=== PATIENT | female | born 1955 | race Caucasian/White ===

== ENCOUNTER 2017-12-12 13:03 | Inpatient (IN) | payer SELFPAY ==
[2017-12-12] VITALS (20 sets, daily range): BP systolic 128–263; BP diastolic 56–129; PULSE 78–95; RESP 18–26; TEMP 97.8–99.5; O2SAT 90–98
[~2017-12-12] VITALS: Ht 175.3 cm; Wt 75.4 kg
[~2017-12-12 13:03] MED LIST: CARD120T4 PO; FLON0.053; LORT5TAB PO; PRIN20TA2 PO; PROT40TA PO; RANI150 PO; VENTAER INH
[2017-12-12] MEDS ORDERED: ASPIRIN 325 MG TAB PO ONE (13:15)
[2017-12-12] MEDS ORDERED: SODIUM CHLORIDE 0.9% FLUSH 10 ML FLUSH IVF PRN (13:15)
[2017-12-12] MEDS ORDERED: methylPREDNISolone SOD SUCC 125 MG/2 ML VIAL IV PUSH ONE (13:15)
[2017-12-12] MEDS ORDERED: METO100T PO (13:29)
[2017-12-12] MEDS ORDERED: LISI-515 PO (13:29)
[2017-12-12] MEDS ORDERED: NITROGLYCERIN 0.4 MG SL 25 TABS/BTL SL ONE ×2 (13:30→18:00)
[2017-12-12] MEDS: RESP: ALBUTEROL 2.5 MG/IPRATROPIUM 0.5 MG NEB (SCH) INH (13:30)
[2017-12-12 13:34] LABS: AUTOMATED NEUTROPHIL # 4.9 TH/MM3 (1.8-7.7); BASOPHIL % 0.7 % (0.0-2.0); EOSINOPHIL % 0.3 % (0.0-4.0); HEMATOCRIT 45.6 % (35.0-46.0); LYMPH % 16.2 % (9.0-44.0); LYMPHOCYTE # 1.1 TH/MM3 (1.0-4.8); MEAN CELL VOLUME 98.2 FL (80.0-100.0); MEAN CORPUSCULAR HEMOGLOBIN 32.4 PG (27.0-34.0); MEAN PLATELET VOLUME 9.4 FL (7.0-11.0); MONO % 12.7 % (0.0-8.0); MONOCYTE # 0.9 TH/MM3 (0-0.9); NEUT % 70.1 % (16.0-70.0); PLATELET COUNT 224 TH/MM3 (150-450); RED BLOOD COUNT 4.64 MIL/MM3 (4.00-5.30); RED CELL DISTRIBUTION WIDTH 13.4 % (11.6-17.2); WHITE BLOOD COUNT 6.9 TH/MM3 (4.0-11.0)
[2017-12-12 13:41] LABS: CHLORIDE 101 MEQ/L (98-107); SODIUM (NA) 138 MEQ/L (136-145)
[2017-12-12 13:44] LABS: BICARBONATE 33.7 MEQ/L (21.0-32.0); BLOOD UREA NITROGEN 15 MG/DL (7-18); CALCIUM 8.8 MG/DL (8.5-10.1); GLUCOSE,RANDOM 107 MG/DL (74-106); MAGNESIUM 1.7 MG/DL (1.5-2.5)
[2017-12-12 13:47] LABS: INTERNATIONAL NORMALIZED RATIO 0.9 RATIO; PROTHROMBIN TIME - PATIENT 9.5 SEC (9.8-11.6)
[2017-12-12 13:48] LABS: GLOMERULAR FILTRATION RATE 50 ML/MIN (>89)
[2017-12-12 13:52] LABS: TROPONIN I LESS THAN 0.02 NG/ML (0.02-0.05)
--- NOTE | 2017-12-12 14:05 | RADRPT ---
EXAM DATE/TIME: 12/12/2017 13:46 [facility] COMPARISON: No previous studies available for comparison. INDICATIONS : Short of breath, chest pain on left side. MEDICAL HISTORY : Hypertension. Bronchitis. SURGICAL HISTORY : Hysterectomy. Carpal tunnel syndrome. Colostomy/reversal. Bowel resection. ENCOUNTER: Initial ACUITY: 1 day PAIN SCORE: 8/10 LOCATION: chest FINDINGS: PA and lateral views of the chest demonstrate the lungs to be symmetrically aerated without evidence of mass, infiltrate or effusion. There is diffuse widespread interstitial lung disease The cardiomedi astinal contours are unremarkable. Osseous structures are intact. CONCLUSION: Normal examination. Diffuse widespread interstitial lung disease Jorge Mccarthy MD on December 12, 2017 at 14:04 Board Certified Radiologist. This report was verified electronically.
[2017-12-12] MEDS ORDERED: hydrALAZINE HCL 20 MG/ML VIAL IV PUSH ONE ×2 (14:30→17:00)
[2017-12-12] MEDS ORDERED: MORPHINE SULFATE 4 MG/ML INJ IV PUSH ONE (15:00)
[2017-12-12] MEDS ORDERED: KETOROLAC TROMETHAMINE 30 MG/ML (IVP) VIAL IV PUSH ONE (15:00)
[2017-12-12] MEDS ORDERED: ONDANSETRON HCL 4 MG/2 ML VIAL IV PUSH ONE (15:00)
--- NOTE | 2017-12-12 15:03 | PD ---
HPI Chief Complaint: Respiratory Symptoms Time Seen by Provider: 13:05 Travel History International Travel<30 days: No Contact w/Intl Traveler<30days: No Traveled to known affect area: No History of Present Illness HPI This is a 62-year-old female who presents for shortness of breath. She states that overnight, she developed shortness of breath and nonproductive cough. No fever, chills. She complains of pain on the left lateral and posterior chest wall. No anterior chest pain. This pain is only present with coughing, deep breath and moving. It does not radiate to arm, neck, jaw. No associated diaphoresis. She denies associated nausea, vomiting, diarrhea. She does continue to smoke heavily. Symptoms are moderate in severity. Onset gradual. Aggravated by movement and coughing. PFSH Past Medical History Asthma: No Blood Disorders: No Anxiety: Yes Depression: Yes Heart Rhythm Problems: No Cancer: No Cardiovascular Problems: Yes High Cholesterol: No Chemotherapy: No Chest Pain: No Congestive Heart Failure: No COPD: Yes Diminished Hearing: No Endocrine: No Gastrointestinal Disorders: Yes GERD: No Glaucoma: No Genitourinary: No Hepatitis: No Hiatal Hernia: No Hypertension: Yes Immune Disorder: No Musculoskeletal: No Neurologic: No Psychiatric: No Reproductive: No Respiratory: Yes (BRONCHITIS) Myocardial Infarction: No Radiation Therapy: No Sleep Apnea: No Ulcer: No Tetanus Vaccination: > 5 Years Influenza Vaccination: No ?: Not Past Surgical History Abdominal Surgery: Yes (COLOSTOMY REVIRSAL/ BOWEL RESCETION/) AICD: No Appendectomy: No Arteriovenous Shunt: No Cholecystectomy: No Gynecologic Surgery: Yes (HYSTERECTOMY) Hysterectomy: Yes Insulin Pump: No Joint Replacement: No Pacemaker: No Other Surgery: Yes Social History Alcohol Use: Yes ("A LOT") Tobacco Use: Yes (1/2 PPD) Substance Use: No Allergies-Medications (Allergen,Severity, Reaction): Coded Allergies: Sulfa (Sulfonamide Antibiotics) (Unverified Allergy, Mild, HIVES and sob, 12/12/17) Reported Meds & Prescriptions Reported Meds & Active Scripts Active Reported Metoprolol Tartrate 100 Mg Tab 100 Mg PO BID Lisinopril 20 Mg Tab 20 Mg PO DAILY Review of Systems Except as stated in HPI: all other systems reviewed are Neg Physical Exam Narrative GENERAL: Alert, well nourished, well appearing patient resting on the bed in no acute distress. Vital Signs reviewed SKIN: Focused skin assessment warm/dry. HEAD: Atraumatic. Normocephalic. EYES: Pupils equal and round. No scleral icterus. No injection or drainage. ENT: No nasal bleeding or discharge. Mucous membranes pink and moist. NECK: Trachea midline. No JVD. Spontaneous, painless full range of motion with no meningismus CARDIOVASCULAR: Regular rate and rhythm. No murmur appreciated. Extremities warm and well perfused with bounding peripheral pulses RESPIRATORY: Mildly increased work of breathing. Diminished breath sounds throughout with some faint end expiratory wheezes. GASTROINTESTINAL: Abdomen soft, non-tender, nondistended. Normal bowel sounds. No rigid, rebound, guarding MUSCULOSKELETAL: No obvious deformities. No clubbing. No cyanosis. No edema. Compartments are soft NEUROLOGICAL: Awake and alert. No obvious cranial nerve deficits. Motor grossly within normal limits. Normal speech. Sensation intact. Normal gait PSYCHIATRIC: Appropriate mood and affect; insight and judgment normal. Data Data Last Documented VS Vital Signs Date Time Temp Pulse Resp B/P (MAP) Pulse Ox O2 Delivery O2 Flow Rate FiO2 12/12/17 16:53 82 18 193/82 (119) 94 Nasal Cannula 2.00 12/12/17 16:33 99.3 Orders Orders Electrocardiogram (12/12/17 13:11) Basic Metabolic Panel (Bmp) (12/12/17 13:11) B-Type Natriuretic Peptide (12/12/17 13:11) Ckmb (Isoenzyme) Profile (12/12/17 13:11) Complete Blood Count With Diff (12/12/17 13:11) Magnesium (Mg) (12/12/17 13:11) Prothrombin Time / Inr (Pt) (12/12/17 13:11) Act Partial Throm Time (Ptt) (12/12/17 13:11) Troponin I (12/12/17 13:11) Ecg Monitoring (12/12/17 13:11) Bilateral Bp Monitoring (12/12/17 13:11) Iv Access Insert/Monitor (12/12/17 13:11) Oximetry (12/12/17 13:11) Oxygen Administration (12/12/17 13:11) Aspirin (Aspirin) (12/12/17 13:15) Sodium Chloride 0.9% Flush (Ns Flush) (12/12/17 13:15) Chest, Pa & Lat (12/12/17 13:11) Arterial Blood Gas (Abg) (12/12/17 13:11) Influenzae A/B Antigen (12/12/17 13:11) Blood Culture (12/12/17 13:11) Methylprednisolone So Succ Inj (Solumedr (12/12/17 13:15) Albuterol-Ipratropium Neb (Duoneb Neb) (12/12/17 13:15) Lactic Acid Sepsis Protocol (12/12/17 13:11) Nitroglycerin Sl (Nitrostat Sl) (12/12/17 13:30) Ct Pulmonary Angiogram (12/12/17 14:21) Hydralazine Inj (Apresoline Inj) (12/12/17 14:30) Morphine Inj (Morphine Inj) (12/12/17 15:00) Ondansetron Inj (Zofran Inj) (12/12/17 15:00) Ketorolac Inj (Toradol Inj) (12/12/17 15:00) Levofloxacin 750 Mg Premix Inj (Levaquin (12/12/17 15:15) Iohexol 350 Inj (Omnipaque 350 Inj) (12/12/17 16:14) Sodium Chlor 0.9% 1000 Ml Inj (Ns 1000 M (12/12/17 16:48) Hydralazine Inj (Apresoline Inj) (12/12/17 17:00) Vital Signs (Adult) AVINASH.Q4H (12/12/17 16:53) Activity Oob With Assistance (12/12/17 16:53) Resp Oxygen Loenardo C Titrat 1-4 L (12/12/17 ) Inpatient Certification (12/12/17 ) Admit Order (Ed Use Only) (12/12/17 16:53) Labs Laboratory Tests Test 12/12/17 13:15 12/12/17 13:27 White Blood Count 6.9 TH/MM3 Red Blood Count 4.64 MIL/MM3 Hemoglobin 15.0 GM/DL Hematocrit 45.6 % Mean Corpuscular Volume 98.2 FL Mean Corpuscular Hemoglobin 32.4 PG Mean Corpuscular Hemoglobin Concent 33.0 % Red Cell Distribution Width 13.4 % Platelet Count 224 TH/MM3 Mean Platelet Volume 9.4 FL Neutrophils (%) (Auto) 70.1 % Lymphocytes (%) (Auto) 16.2 % Monocytes (%) (Auto) 12.7 % Eosinophils (%) (Auto) 0.3 % Basophils (%) (Auto) 0.7 % Neutrophils # (Auto) 4.9 TH/MM3 Lymphocytes # (Auto) 1.1 TH/MM3 Monocytes # (Auto) 0.9 TH/MM3 Eosinophils # (Auto) 0.0 TH/MM3 Basophils # (Auto) 0.0 TH/MM3 CBC Comment DIFF FINAL Differential Comment Prothrombin Time 9.5 SEC Prothromb Time International Ratio 0.9 RATIO Activated Partial Thromboplast Time 25.2 SEC Blood Urea Nitrogen 15 MG/DL Creatinine 1.10 MG/DL Random Glucose 107 MG/DL Calcium Level 8.8 MG/DL Magnesium Level 1.7 MG/DL Sodium Level 138 MEQ/L Potassium Level 4.3 MEQ/L Chloride Level 101 MEQ/L Carbon Dioxide Level 33.7 MEQ/L Anion Gap 3 MEQ/L Estimat Glomerular Filtration Rate 50 ML/MIN Lactic Acid Level 0.8 mmol/L Total Creatine Kinase 39 U/L Troponin I LESS THAN 0.02 NG/ML B-Type Natriuretic Peptide 533 PG/ML Blood Gas Puncture Site RT RADIAL Blood Gas Patient Temperature 98.6 Blood Gas HCO3 28 mmol/L Blood Gas Base Excess 3.5 mmol/L Blood Gas Oxygen Saturation 84 % Arterial Blood pH 7.42 Arterial Blood Partial Pressure CO2 43 mmHG Arterial Blood Partial Pressure O2 57 mmHG Arterial Blood Oxygen Content 17.6 Vol % Arterial Blood Carboxyhemoglobin 4.2 % Arterial Blood Methemoglobin 1.4 % Blood Gas Hemoglobin 14.9 G/DL Oxygen Delivery Device ROOM AIR Blood Gas Inspired Oxygen 21 % [facility] Medical Decision Making Medical Screen Exam Complete: Yes Emergency Medical Condition: Yes Medical Record Reviewed: Yes Interpretation(s) EKG shows sinus rhythm with a rate of 87. No acute ST elevation Date/Time Source Procedure Growth Status 12/12/17 13:20 Blood Peripheral Aerobic Blood Culture Pending Received 12/12/17 13:20 Blood Peripheral Anaerobic Blood Culture Pending Received 12/12/17 13:15 Blood Peripheral Aerobic Blood Culture Pending Received 12/12/17 13:15 Blood Peripheral Anaerobic Blood Culture Pending Received 12/12/17 13:15 Nasal Washing Influenza Types A,B Antigen (DOLORES) - Final NEGATIVE FOR FLU A AND B ANTIGEN.... Complete Laboratory Tests Test 3/1/18 13:15 12/12/17 13:27 White Blood Count 6.9 TH/MM3 Red Blood Count 4.64 MIL/MM3 Hemoglobin 15.0 GM/DL Hematocrit 45.6 % Mean Corpuscular Volume 98.2 FL Mean Corpuscular Hemoglobin 32.4 PG Mean Corpuscular Hemoglobin Concent 33.0 % Red Cell Distribution Width 13.4 % Platelet Count 224 TH/MM3 Mean Platelet Volume 9.4 FL Neutrophils (%) (Auto) 70.1 % Lymphocytes (%) (Auto) 16.2 % Monocytes (%) (Auto) 12.7 % Eosinophils (%) (Auto) 0.3 % Basophils (%) (Auto) 0.7 % Neutrophils # (Auto) 4.9 TH/MM3 Lymphocytes # (Auto) 1.1 TH/MM3 Monocytes # (Auto) 0.9 TH/MM3 Eosinophils # (Auto) 0.0 TH/MM3 Basophils # (Auto) 0.0 TH/MM3 CBC Comment DIFF FINAL Differential Comment Prothrombin Time 9.5 SEC Prothromb Time International Ratio 0.9 RATIO Activated Partial Thromboplast Time 25.2 SEC Blood Urea Nitrogen 15 MG/DL Creatinine 1.10 MG/DL Random Glucose 107 MG/DL Calcium Level 8.8 MG/DL Magnesium Level 1.7 MG/DL Sodium Level 138 MEQ/L Potassium Level 4.3 MEQ/L Chloride Level 101 MEQ/L Carbon Dioxide Level 33.7 MEQ/L Anion Gap 3 MEQ/L Estimat Glomerular Filtration Rate 50 ML/MIN Lactic Acid Level 0.8 mmol/L Total Creatine Kinase 39 U/L Troponin I LESS THAN 0.02 NG/ML B-Type Natriuretic Peptide 533 PG/ML Blood Gas Puncture Site RT RADIAL Blood Gas Patient Temperature 98.6 Blood Gas HCO3 28 mmol/L Blood Gas Base Excess 3.5 mmol/L Blood Gas Oxygen Saturation 84 % Arterial Blood pH 7.42 Arterial Blood Partial Pressure CO2 43 mmHG Arterial Blood Partial Pressure O2 57 mmHG Arterial Blood Oxygen Content 17.6 Vol % Arterial Blood Carboxyhemoglobin 4.2 % Arterial Blood Methemoglobin 1.4 % Blood Gas Hemoglobin 14.9 G/DL Oxygen Delivery Device ROOM AIR Blood Gas Inspired Oxygen 21 % Last [address] Angiography 12/12/17 [id number] Signed Impressions: Service Date/Time: December 16:03 - CONCLUSION: Bilobed elongated infiltrate within the lingula most likely from an area of rounded pneumonia. Due to the soft tissue and spiculated margin followup noncontrast chest CT recommended in one month. Small amounts of air space disease in both lung bases. No evidence of pulmonary embolism. Jorge Mccarthy MD Chest X-Ray 12/12/17 1311 Signed Impressions: Service Date/Time: December 13:46 - CONCLUSION: Normal examination. Diffuse widespread interstitial lung disease Jorge Mccarthy MD Differential Diagnosis COPD exacerbation, bronchitis, pneumonia, pulmonary embolism, lung cancer Narrative Course Patient was placed on a environmental monitoring technician. IV access was established. Labs, imaging were performed. Patient was placed on supplemental oxygen. She was given IV fluids, IV antibiotics, duo nebs and Solu-Medrol. Patient was given Toradol and morphine for pain in the left lateral ribs. Patient was reassessed multiple times in the emergency department. She did require multiple doses of IV hydralazine due to accelerated hypertension. I reviewed the results of the workup with her. Plan for admission for further evaluation and care. 5:20 PM: I was asked to assess the patient due to wheezing and chest tightness with breathing. Repeat EKG was performed. Patient was given DuoNeb. I then reassessed the patient and ordered BiPAP. Admitting hospitalist is aware 5:40 PM: Admitting hospitalist is at bedside, he examined patient and does not recommend BiPAP. Physician Communication Physician Communication 4:50 PM: Spoke with admitting hospitalist who assumes care of patient Diagnosis Primary Impression: Pneumonia Qualified Codes: J18.1 - Lobar pneumonia, unspecified organism Additional Impressions: Hypoxia Accelerated hypertension Hemalatha Elmore MD Dec 12, 2017 15:02
[2017-12-12] MEDS ORDERED: LEVOFLOXACIN 750 MG PREMIX INJ 150 ML IV ONE (15:15)
[2017-12-12] MEDS ORDERED: IOHEXOL 350 MG/ML 10 ML VIAL (for RAD DIAG) IVCONTRAST ONE (16:14)
--- NOTE | 2017-12-12 16:25 | RADRPT ---
EXAM DATE/TIME: 12/12/2017 16:03 [facility] COMPARISON: No previous studies available for comparison. INDICATIONS : Short of breath. Left chest pain. IV CONTRAST: 75 cc Omnipaque 350 (iohexol) IV RADIATION DOSE: 11.65 CTDIvol (mGy) MEDICAL HISTORY : Hypertension. SURGICAL HISTORY : Colostomy. Colon resection.Hysterectomy. ENCOUNTER: Initial ACUITY: 1 day PAIN SCALE: 10/10 LOCATION: Left chest TECHNIQUE: Volumetric scanning of the chest was performed using a pulmonary embolism protocol MIP images were re constructed. Using automated exposure control and adjustment of the mA and/or kV according to patien t size, radiation dose was kept as low as reasonably achievable to obtain optimal diagnostic quality images. DICOM format image data is available electronically for review and comparison. Follow-up recommendations for detected pulmonary nodules are based at a minimum on nodule size and pa tient risk factors according to Fleischner Society Guidelines. FINDINGS: PULMONARY ARTERIES: No filling defects are seen in the pulmonary arteries through the segmental level. LUNGS: There is elongated infiltrate measuring 2.1 x 3.7 cm in the left upper lobe lingula. It does have a s omewhat spiculated margin and clearly needs followup. Suggest appropriate antibiotic treatment and fo llowup noncontrast chest CT in one month. Smaller area of groundglass infiltrate in the medial right lower lobe and the medial left lung base PLEURAE: There is no pleural thickening or pleural effusion. MEDIASTINUM: There is good visualization of the great vessels of the middle mediastinum. No evidence of mediastin al or hilar adenopathy/mass. MUSCULOSKELETAL: Within normal limits for patient age. MISCELLANEOUS: The visualized upper abdominal organs demonstrate no acute abnormality. 2 cm left adrenal nodule like ly adrenal adenoma CONCLUSION: Bilobed elongated infiltrate within the lingula most likely from an area of rounded pneumonia. Due to the soft tissue and spiculated margin followup noncontrast chest CT recommended in one month. Small amounts of air space disease in both lung bases. No evidence of pulmonary embolism. Jorge Mccarthy MD on December 12, 2017 at 16:21 Board Certified Radiologist. This report was verified electronically.
[2017-12-12] MEDS ORDERED: SODIUM CHLOR 0.9% 1000 ML INJ 1,000 ML IV SCH (16:48)
[2017-12-12] MEDS ORDERED: RESP: ALBUTEROL 2.5 MG/IPRATROPIUM 0.5 MG NEB (SCH) INH ONE (17:30)
--- NOTE | 2017-12-12 18:00 | HHI.HP ---
HPI Service [facility] Primary Care Physician Ayo Gonzales MD Admission Diagnosis Pneumonia, hypoxia, accelerated hypertension Diagnoses: Chief Complaint: rib pain and chest pressure Travel History International Travel<30 Days: No Contact w/Intl Traveler <30 Da: No Traveled to Known Affected Are: No History of Present Illness 62-year-old white female being admitted for acute hypoxic respiratory failure and suspected unstable angina. Patient was in her usual state of health until she woke up this morning in pain over her left rib cage in her left back. She reported that the pain would worsen with deep inspiration and was at max intensity and thus she decided come to the emergency department. She denies any jennifer coughing, cyanosis, nausea, vomiting. In the ER the patient was noted to be hypoxic around 89% was found to be very hypertensive with blood pressures greater than 200/100. Initial EKG was obtained which independently reviewed it shows no ST segment changes concerning for ischemia or infarction. Patient did receive 1 round of nitroglycerin which brought her pressures down substantially. CT chest was performed which showed no emboli but showed a lingular infiltrate in the left lung. Patient was started on antibiotics. However later in the course of her management the patient developed sudden onset squeezing sensation in her chest which got her very frightened. Repeat EKG was performed which shows mild new onset ST segment depression in leads 4 through 6 based upon my personal interpretation. Review of Systems Except as stated in HPI: all other systems reviewed are Neg Past Family Social History Past Medical History Hypertension Allergies: Coded Allergies: Sulfa (Sulfonamide Antibiotics) (Unverified Allergy, Mild, HIVES and sob, 12/12/17) Family History [place] at 65 in father Social History lifelong history of smoking, reports drinking vodka heavily up to 3x a week Physical Exam Vital Signs Vital Signs Date Time Temp Pulse Resp B/P (MAP) Pulse Ox O2 Delivery O2 Flow Rate FiO2 12/12/17 17:22 88 22 144/57 (86) 95 Nasal Cannula 2.00 12/12/17 17:12 88 20 128/56 (80) 95 Nasal Cannula 2.00 12/12/17 17:04 86 18 158/60 (92) 93 Nasal Cannula 2.00 12/12/17 16:53 82 18 193/82 (119) 94 Nasal Cannula 2.00 12/12/17 16:33 Nasal Cannula 2.00 12/12/17 16:33 99.3 83 18 206/89 (128) 98 Nasal Cannula 2.00 12/12/17 15:14 80 215/81 (125) 12/12/17 14:50 80 18 192/67 (108) 94 Nasal Cannula 2.00 12/12/17 14:21 78 18 208/88 (128) 94 Nasal Cannula 2.00 12/12/17 13:44 82 18 185/82 (116) 92 Nasal Cannula 2.00 12/12/17 13:42 (173) 12/12/17 13:34 237/100 (145) 263/129 (173) 12/12/17 13:33 96 Nasal Cannula 2.00 12/12/17 13:27 90 Room Air 12/12/17 13:15 99.5 84 18 263/129 (173) 90 Room Air 12/12/17 13:15 89 Room Air 12/12/17 13:15 90 Room Air Physical Exam VS: afebrile GENERAL: White female who appears older than his stated age, sitting up at the edge of the bed, appears to be in moderate to severe distress secondary to pain SKIN: Warm and dry. EYES: No scleral icterus. No injection or drainage. ENT: No nasal bleeding or discharge. Mucous membranes pink and moist. CARDIOVASCULAR: Regular rate and rhythm. no murmurs RESPIRATORY: Diminished breath sounds in the bases due to shallow breathing secondary to pain, no wheezing heard GASTROINTESTINAL: Abdomen soft, non-tender, nondistended. Extremities: No clubbing, cyanosis, or edema. No obvious deformities. MUSCULOSKELETAL: adequate muscle bulk and tone for age and habitus; has diffuse TTP over left sided rib cage and left flank NEUROLOGICAL: Awake and alert. No obvious cranial nerve deficits. No facial droop nor slurred speech noted. PSYCHIATRIC: Appropriate mood and affect; insight and judgment normal. Laboratory Laboratory Tests Test 12/12/17 13:15 12/12/17 13:27 12/12/17 17:40 White Blood Count 6.9 Red Blood Count 4.64 Hemoglobin 15.0 Hematocrit 45.6 Mean Corpuscular Volume 98.2 Mean Corpuscular Hemoglobin 32.4 Mean Corpuscular Hemoglobin Concent 33.0 Red Cell Distribution Width 13.4 Platelet Count 224 Mean Platelet Volume 9.4 Neutrophils (%) (Auto) 70.1 Lymphocytes (%) (Auto) 16.2 Monocytes (%) (Auto) 12.7 Eosinophils (%) (Auto) 0.3 Basophils (%) (Auto) 0.7 Neutrophils # (Auto) 4.9 Lymphocytes # (Auto) 1.1 Monocytes # (Auto) 0.9 Eosinophils # (Auto) 0.0 Basophils # (Auto) 0.0 CBC Comment DIFF FINAL Differential Comment Prothrombin Time 9.5 Prothromb Time International Ratio 0.9 Activated Partial Thromboplast Time 25.2 Blood Urea Nitrogen 15 Creatinine 1.10 Random Glucose 107 Calcium Level 8.8 Magnesium Level 1.7 Sodium Level 138 Potassium Level 4.3 Chloride Level 101 Carbon Dioxide Level 33.7 Anion Gap 3 Estimat Glomerular Filtration Rate 50 Lactic Acid Level 0.8 Total Creatine Kinase 39 Troponin I LESS THAN 0.02 B-Type Natriuretic Peptide 533 Blood Gas Puncture Site RT RADIAL Blood Gas Patient Temperature 98.6 Blood Gas HCO3 28 Blood Gas Base Excess 3.5 Blood Gas Oxygen Saturation 84 Arterial Blood pH 7.42 Arterial Blood Partial Pressure CO2 43 Arterial Blood Partial Pressure O2 57 Arterial Blood Oxygen Content 17.6 Arterial Blood Carboxyhemoglobin 4.2 Arterial Blood Methemoglobin 1.4 Blood Gas Hemoglobin 14.9 Oxygen Delivery Device ROOM AIR Blood Gas Inspired Oxygen 21 Date/Time Source Procedure Growth Status 12/12/17 13:20 Blood Peripheral Aerobic Blood Culture Pending Received 12/12/17 13:20 Blood Peripheral Anaerobic Blood Culture Pending Received 12/12/17 13:15 Nasal Washing Influenza Types A,B Antigen (DOLORES) - Final NEGATIVE FOR FLU A AND B ANTIGEN.... Complete Result Diagram: 12/12/17 1315 12/12/17 [address] Angiography 12/12/17 1421 Signed Impressions: Service Date/Time: December 16:03 - CONCLUSION: Bilobed elongated infiltrate within the lingula most likely from an area of rounded pneumonia. Due to the soft tissue and spiculated margin followup noncontrast chest CT recommended in one month. Small amounts of air space disease in both lung bases. No evidence of pulmonary embolism. Jorge Mccarthy MD Chest X-Ray 12/12/17 1311 Signed Impressions: Service Date/Time: December 13:46 - CONCLUSION: Normal examination. Diffuse widespread interstitial lung disease MD Mary Auguste VTE Risk Assessment Mary VTE Risk Assessment: Mod/High Risk (score >= 2) Caprini Risk Assessment Model Point Value = 1 Point Value = 2 Point Value = 3 Point Value = 5 Age 41-60 Minor surgery BMI > 25 kg/m2 Swollen legs Varicose veins or History of unexplained or recurrent spontaneous Oral contraceptives or hormone replacement Sepsis (< 1 month) Serious lung disease, including pneumonia (< 1 month) Abnormal pulmonary function Acute myocardial infarction Congestive heart failure (< 1 month) History of inflammatory bowel disease Medical patient at bed rest Age 61-74 Arthroscopic surgery Major open surgery (> 45 min) Laparoscopic surgery (> 45 min) Malignancy Confined to bed (> 72 hours) Immobilizing plaster cast Central venous access Age >= 75 History of VTE Family history of VTE Factor V Leiden Prothrombin [id number] Lupus anticoagulant Anticardiolipin antibodies Elevated serum homocysteine Heparin-induced thrombocytopenia Other congenital or acquired thrombophilia Stroke (< 1 month) Elective arthroplasty Hip, pelvis, or leg fracture Acute spinal cord injury (< 1 month) Prophylaxis Regimen Total Risk Factor Score Risk Level Prophylaxis Regimen 0-1 Low Early ambulation 2 Moderate Order ONE of the following: *Sequential Compression Device (SCD) *Heparin 5000 units SQ BID 3-4 Higher Order ONE of the following medications: *Heparin 5000 units SQ TID *Enoxaparin/Lovenox 40 mg SQ daily (WT < 150 kg, CrCl > 30 mL/min) *Enoxaparin/Lovenox 30 mg SQ daily (WT < 150 kg, CrCl > 10-29 mL/min) *Enoxaparin/Lovenox 30 mg SQ BID (WT < 150 kg, CrCl > 30 mL/min) AND/OR *Sequential Compression Device (SCD) 5 or more Highest Order ONE of the following medications: *Heparin 5000 units SQ TID (Preferred with Epidurals) *Enoxaparin/Lovenox 40 mg SQ daily (WT < 150 kg, CrCl > 30 mL/min) *Enoxaparin/Lovenox 30 mg SQ daily (WT < 150 kg, CrCl > 10-29 mL/min) *Enoxaparin/Lovenox 30 mg SQ BID (WT < 150 kg, CrCl > 30 mL/min) AND *Sequential Compression Device (SCD) Assessment and Plan Assessment and Plan 62-year-old white female being admitted for acute hypoxic respiratory failure as well as possible unstable angina Acute hypoxic respiratory failure -Likely secondary to pneumonia as well as smoker's lung (undiagnosed interstitial lung changes secondary to smoking); flu negative -CT angio negative for PE; no jennifer acidosis noted on blood gas -Oxygen supplementation as needed, antibiotics for pneumonia -continue solumedrol; I will hold off on duo nebs for now to minimize any cardiac demand, if absolutely necessary can consider one-time manual doses for shortness of breath ST segment depression with possible unstable angina -Already received 2 doses of nitro in the ER -D/w Dr. Foreman, admitting to [facility] or higher -already received ASA in ER, trending troponins, will consider starting heparin HTN urgency - monitor BP, can consider vasotec prn - continue home lopressor and lisionpril Aggregate critical care time was 35 minutes spent at bedside or in the hospital [place]. Time to perform other separately billable procedures was not included in the critical care time. My time did not include minutes spent treating any other patient simultaneously or on activities that did not directly To be due to the patient's treatment. The services are provided to this patient were to treat and/or prevent clinically significant deterioration that could result in organ failure, , disability, or imminent clinical deterioration in the patient's condition. I provided critical care services requiring my management as noted above. Physician Certification 2 Midnight Certification Type: Admission for Inpatient Services Order for Inpatient Services The services are ordered in accordance with Medicare regulations or non- Medicare payer requirements, as applicable. In the case of services not specified as inpatient-only, they are appropriately provided as inpatient services in accordance with the 2-midnight benchmark. Estimated LOS (days): 2 2 days is the estimated time the patient will need to remain in the hospital, assuming treatment plan goals are met and no additional complications. Post-Hospital Plan: Not yet determined Larry Barker MD Dec 12, 2017 18:00
[2017-12-12] MEDS ORDERED: ATORVASTATIN 40 MG TAB PO ONE (18:30)
[2017-12-12] MEDS ORDERED: ENALAPRILAT 1.25 MG/ML VIAL IV PUSH PRN (18:30)
[2017-12-12] MEDS: LIDOCAINE HCL 5% PATCH T-DERMAL SCH (20:00)
--- NOTE | 2017-12-12 21:14 | MB ---
cc: Enrique Foreman MD DATE OF CONSULT: 12/12/2017 HISTORY OF PRESENT ILLNESS: Lillian is a very pleasant 62-year-old lady who presented to the emergency room with severe dyspnea and severe pressure-like chest pain, was found to be extremely hypoxic and was found to have ischemic ST changes of the inferolateral leads and I just spoke to Dr. Elmore who thinks the patient's x-ray looked like pneumonia and/or possibly a mass. The patient is more comfortable now on nasal cannula. She complains of lower extremity edema as well. She otherwise denies any fevers, chills, GI or bleeding, She is currently chest pain free. PAST MEDICAL HISTORY: Per present illness. She has a history of anxiety, depression, hypertension, bronchitis, colostomy reversal, bowel resection, history of hysterectomy. SOCIAL HISTORY: She "drinks a lot of alcohol." Smokes half pack of cigarettes a day. ALLERGIES: SULFA. MEDICATIONS AT HOME: Metoprolol 100 b.i.d., lisinopril 20 daily. MEDICATIONS IN THE HOSPITAL: Levofloxacin, lisinopril 20 daily, metoprolol 100 b.i.d., Symbicort, atorvastatin 40 at bedtime, methylprednisolone 60 IV q. 12 hours, lidocaine patch, aspirin 325 given x1. PHYSICAL EXAMINATION: VITAL SIGNS: Blood pressure 133/56, pulse 89, respiratory rate 22, sats 95% on 2 L nasal cannula. GENERAL: She is alert, oriented x3, in no acute distress. NECK: Supple. No JVD. No bruit. CARDIOVASCULAR: S1, S2. No murmurs, rubs, or gallops. LUNGS: Notable for increase expiratory wheezing, decrease air movement bilaterally. ABDOMEN: Soft, nontender, nondistended with bowel sounds. EXTREMITIES: Trace lower extremity edema. IMAGING: Chest x-ray shows diffuse wide spread interstitial lung disease. CT angio of the chest shows bilobed elongated infiltrate within the lingula most likely from an area of rounded pneumonia. Due to the soft tissue and spiculated followup noncontrast chest CT recommended in 1 month, small amounts of airspace disease in both lung bases. No evidence of pulmonary embolism. An EKG shows normal sinus rhythm at 87 bpm with anterolateral ischemic changes and inferior ischemic changes, [address] segment depression in lead V4, V5 and V6, and lead II. LABORATORY DATA: White count 6.9, hemoglobin hematocrit 45.6, platelet count 224. Troponin is less than 0.02 x2. BNP is 533. Sodium 138, potassium 4.3, chloride 101, bicarb 33.7, BUN 15, creatinine 1.10. Hemoglobin Blood gas; pH 7.42, pCO2 of 43, pO2 of 57 on room air. INR 0.9. DIAGNOSES: She has the followin. Pneumonia. 2. Decompensated congestive heart failure. 3. Unstable angina. 4. 5. [place] [employer] Class 4 congestive heart failure. 6. Hypoxia. 7. Tobacco use. 8. Alcohol abuse. DISCUSSION: At this point in time, I have talked to Dr. Barker and Dr. Elmore recommended transfer to [facility]. We will keep the patient n.p.o. after midnight. I have recommended to Ms. Estrada to have a right and left heart catheterization tomorrow given her high risk presentation with decompensated congestive heart failure, ischemic ST-T changes at rest, multiple cardiac risk factors. Patient is currently undecided. We will continue aspirin 81 mg daily. Agree with atorvastatin 40 daily, metoprolol 100 b.i.d., lisinopril 20. She is currently chest pain free and strongly recommend smoking cessation. MD TRISHA Springer/cc , 08:36 PM , 09:12 PM
[2017-12-12] MEDS ORDERED: CHLORHEXIDINE GLUCONATE 2 % 1 PACK (2 CLOTHS)(extra cloths) TOPICAL PRN (22:15)
[2017-12-12] MEDS: ATORVASTATIN 40 MG TAB PO SCH (22:19)
[2017-12-12] MEDS: METOPROLOL TARTRATE 100 MG TAB PO SCH (22:19)
[2017-12-12] MEDS: methylPREDNISolone SOD SUCC 125 MG/2 ML VIAL IV PUSH SCH (22:19)
[2017-12-12] MEDS: ACETAMINOPHEN/HYDROcodone 325 MG/5 MG TAB PO PRN (23:23)
[2017-12-12] MEDS: BUDESONIDE-FORMOTEROL 80/4.5 MCG INHALER INH SCH (23:23)
[2017-12-13] VITALS (78 sets, daily range): BP systolic 118–206; BP diastolic 50–93; PULSE 64–87; RESP 12–40; TEMP 98.2–98.8; O2SAT 89–100
[2017-12-13] MEDS: CHLORHEXIDINE GLUCONATE 2 % 1 PACK (2 CLOTHS)(taper/protocol) TOPICAL SCH (00:40)
[2017-12-13 01:08] LABS: CHOLESTEROL/ HDL RATIO 2.15 RATIO; HDL CHOLESTEROL 102.4 MG/DL (40.0-60.0)
[2017-12-13] MEDS ORDERED: ALPRAZolam 0.25 MG TAB PO ONE (04:30)
--- NOTE | 2017-12-13 09:00 | EKG ---
Date Performed: 12/12/2017 Time Performed: 13:16:51 PTAGE: 62 years EKG: Sinus rhythm POSSIBLE RIGHT ATRIAL ENLARGEMENT POSSIBLE LEFT ATRIAL ENLARGEMENT LEFT VENTRICULAR HYPERTROPHY AND ST-T CHANGE ABNORMAL ECG INTERPRETATION BASED ON A DEFAULT AGE OF 40 YEARS PREVIOUS TRACING : 04/20/2009 08.31 Since the prior tracing, there has been no significan t change DOCTOR: Chanda Mejia Interpretating Date/Time 12/13/2017 08:58:55
--- NOTE | 2017-12-13 09:00 | EKG ---
Date Performed: 12/12/2017 Time Performed: 17:23:11 PTAGE: 62 years EKG: Sinus rhythm POSSIBLE LEFT ATRIAL ENLARGEMENT LEFT VENTRICULAR HYPERTROPHY AND ST-T CHANGE ABNORMAL ECG PREVIOUS TRACING : 12/12/2017 13.16 Since the prior tracing, there has been no significant telles DOCTOR: Chanda Mejia Interpretating Date/Time 12/13/2017 08:59:03
[2017-12-13] MEDS: METOPROLOL TARTRATE 100 MG TAB PO SCH ×2 (09:03→20:44)
[2017-12-13] MEDS: BUDESONIDE-FORMOTEROL 80/4.5 MCG INHALER INH SCH ×2 (09:03→20:45)
[2017-12-13] MEDS: methylPREDNISolone SOD SUCC 125 MG/2 ML VIAL IV PUSH SCH ×2 (09:03→20:45)
[2017-12-13] MEDS: LISINOPRIL 20 MG TAB PO SCH (09:03)
[2017-12-13] MEDS ORDERED: PNEUMOCOCCAL POLYVALENT INJ 25 MCG/0.5 ML SYR IM ONE (10:00)
[2017-12-13] MEDS ORDERED: INFLUENZA VIRUS VACCINE (QUADRIVALENT) 0.5 ML SYR IM ONE (10:00)
[2017-12-13] MEDS ORDERED: FUROSEMIDE 40 MG/4 ML VIAL ONE (10:17)
[2017-12-13] MEDS ORDERED: NITROGLYCERIN-D5W 50 MG/250 ML 250 ML ONE (10:17)
[2017-12-13] MEDS ORDERED: NITROGLYCERIN/DEXTROSE 5% 250 ML for chest pain IV ONE (10:21)
[2017-12-13] MEDS ORDERED: FUROSEMIDE 40 MG/4 ML VIAL IV PUSH ONE (10:25)
[2017-12-13] MEDS ORDERED: SODIUM CHLORIDE 0.9% FLUSH 10 ML FLUSH IV FLUSH PRN (10:30)
[2017-12-13] MEDS ORDERED: MISC INFORMATION XX ONE (10:30)
--- NOTE | 2017-12-13 10:36 | CATHPROC ---
RADSONE HIS Report Study Information Study Number Admission Scheduled Start Study Start [id number] Dec 12 2017 4:54PM 12/13/2017 Dec 13 2017 9:11AM [place] Service Cardiac Catheterization Admit Source Facility Department Other [facility] - Senior Applications Developer Physician and Clinical Staff Initial MD Foreman, Enrique Band Saw Operator Billie Balderas,RN Recorder Vinod DE LA TORRE, Nik Alvarez, Jesse,RT(R) X-Ray Maik Garcia RCIS(BS) Procedures Performed Procedure Location (Site) Vessel Name Coronary Angiograms LCA Left Coronary Coronary Angiograms RCA Right Coronary LV Gram-hand inj. LV LV Ventricle Equipment Time Adapted Physical Education Teacher Description Size Mfg Part Number Used/Scraped CATHETER, FR5 SWAN SEAN 09:22 [employer] FR 5 [id number] *[id number] Used MONITOR TRANSDUCER, TRUWAVE [id number] 09:22 TRAYLOR ANGELO * Used W/STOCKCOCK *[id number] [id number] *[id number] [id number] *[id number] WIRE, HYDROSTEER 150CM [id number] 10:15 DAIG/[employer]. [employer] 150CM Used ANGLED GLIDE *[id number] 09:22 [employer] INDUSTRIES PACK, CCL CUSTOM * Used *[id number] 09:22 [employer] PACER PEN, SKIN DUAL W/ RULER * Used *[id number] 09:22 [employer] WIRE, 3MMJ .035 180CM 180CM Used *[id number] 09:22 NAMIC MANIFOLD, 4 PORT * Used *[id number] 09:22 NYCOMED OMNIPAQUE, 350 MG, 150ML 150ML [id number] Used [id number] 09:22 [employer] BLANKET,WARM AIR CCL * Used *[id number] 09:22 [employer] SHEATH, FR4 TERUMO (10CM) FR 4 Used *[id number] 09:23 [employer] SHEATH, FR6 TERUMO (10CM) FR 6 Used *[id number] Equipment Model, Serial, Lot Number and Expiration Data Description Model Number Serial Number Lot Number Expiration Date WIRE, HYDROSTEER 150CM [id number] 08-13-2020 ANGLED GLIDE History: Current Medications Medication Dosage/Unit Route Frequency Last Date/Time Taken ASA Statins (any) Beta Brie History: Allergies Allergy Reaction NKDA History: Risk Factors Family History of Hypertension Dyslipidemia Previous DE Previous Heart Failure Premature CAD No No No No No Prior Valve Prior PCI Prior CABG Surgery No No No Cerebrovascular Peripheral Artery Chronic Lung On Dialysis Diabetes Disease Disease Disease No No No Yes No History: Stress Tests Stress or Imaging Studies Performed No History: Other Current Smoker Method Packs a Day Years Used Pack Years Yes Cigarettes 1 30 30 Labs Hgb (g/dl) Hct (%) WBC (l/cumm) 11.60-17.00 35.00-51.00 4.00-11.00 15.0 45.6 6.9 Glucose (mg/dl) BUN (mg/dl) Creatinine (mg/dl) BUN:Creatinine (1:x) 74.00-106.00 7.00-18.00 0.50-1.30 10.00-20.00 107 50 1.1 45.5 Na (meq/l) K (meq/l) 136.00-145.00 3.50-5.10 138 4.3 INR (PTT:PT) 0.90-1.10 1.1 CPK-MB (ng/ML) 0.50-3.60 Not Drawn Medication Medication Total Dose (Bolus/Oral) Medication Total Dosage/Unit 1% XYLOCAINE 20 mL FENTANYL 12.5 mcg LASIX 40 mg OXYGEN 4 l/min Medications (Bolus/Oral) Medication Time Given Dosage/Unit Administered By Reason OXYGEN 12/13/2017 9:28:57 AM 4 l/min Billie Balderas Patient arrived on 4 l/min OXYGEN given by Billie Balderas, BRITT via Nasal. Ordered by Enrique Foreman . 1% XYLOCAINE 12/13/2017 9:59:22 AM 20 mL Enrique Foreman 20 mL 1% XYLOCAINE given in lab by Enrique Foreman in Right Groin via Subcutaneous. Ordered by Enrique Adair. FENTANYL 12/13/2017 10:07:45 AM 12.5 mcg Billie Balderas 12.5 mcg FENTANYL given in lab by Billie Balderas, RN via Peripheral IV. Ordered by Enrique Foreman. LASIX 12/13/2017 10:25:28 AM 40 mg Billie Balderas 40 mg LASIX given in lab by Billie Balderas, BRITT via Peripheral IV. Ordered by Enrique Foreman. Medication (Drip) Medication Time Given Dosage/Unit Concentration/Unit Diluent (ml) Solution IV Solutions 12/13/2017 9:35:37 AM 0 mL (IV) 500 NaCl .9 Patient arrived on IV Solutions in Right Antecubital via Peripheral IV. Pump/Drip Flow = 20 ml/hr usi ng NaCl .9. Ordered by Enrique Foreman. NITROGLYCERIN DRIP 12/13/2017 10:21:26 AM 50 mcg/min 50 mg 250 D5W 50 mcg/min NITROGLYCERIN DRIP given in lab by Billie Balderas, BRITT via Peripheral IV. Pump/Drip Flow = 15 ml/hr using D5W with a concentration of 50 mg in 250 ml. Ordered by Enrique Foreman. Initial Case Assessment Cardiovascular HR Rhythm NIBP Chest Pain 71 NSR 200/89 2 Edema Present Skin color Skin None Normal Warm Dry Circulatory - Right Pulses Dorsalis Pedis Femoral 1 1 Scale (0,1,2,3,4,d) Circulatory - Left Pulses Dorsalis Pedis Femoral 1 1 Scale (0,1,2,3,4,d) Neurological State Oriented to time-place- Alert Moves all extremities person Respiration - General Respiration Rate SpO2 (%) (B/min) 15 98 Chronological Log Time Study Chronological Log 9:27:28 Patient arrived via Bed. 9:28:34 Patient Name, D.O.B, / Armband Verified By R.N. 9:28:36 Consent signed by the physician and the patient and verified by the Senior Applications Developer staff. 9:28:37 Pre-op and post- op instructions given; patient acknowledges understanding of instructions. 9:28:57 Patient arrived on 4 l/min OXYGEN given by Billie Balderas, BRITT via Nasal. Ordered by Enrique Tran. Vitals capture started with the following parameters, Patient=Adult, Interval=5 min, Initial Pr fcelkk=435 mmHg, 9:33:25 Deflation Rate=5 mmHg, Cuff placed on Left Arm 9:34:37 HR=76 bpm, LNDL=528/89 mmhg, SpO2=97.0 %, Resp=13 B/min, Pain=2, Viviana=9, Bernal=2 9:34:44 Verbal Stimulation=2 Physical Stimulation=2 Airway=2 Respiration=1 TOTAL=7. (0=absent, 1=paredes ited, 2=present) 9:35:20 Presedation assessment performed by Senior Applications Developer RN. 9:35:26 Patient has been NPO for More than 6Hrs. 9:35:26 Skin Breakdown- none per patient 9:35:32 Patient Warmer Placed on the Table. 9:35:33 Roshni Prominences Protected 9:35:35 A # 20 IV was noted in the Forearm (right). Grade = 0 9:35:37 A # 20 IV was noted in the Antecubital (right). Grade = 0 Patient arrived on IV Solutions in Right Antecubital via Peripheral IV. Pump/Drip Flow = 20 ml/ hr using NaCl .9. Ordered 9:35:37 by Enrique Foreman. 9:35:38 History and physical on the chart or being dictated. Assessment: Initial Case, HR=71 BPM, Rhythm=NSR, BPXU=202/89 mmhg, Chest Pain=2, Edema=None, Color=Normal, Skin = Warm, Dry Right Pulses: Karl Ped=1, Femoral=1 9:38:15 Left Pulses: Karl Ped=1, Femoral=1 Neurological: State=Alert, Ox3, BOND Respiration: Resp=15 B/min, SpO2=98 % 9:38:32 Reference ECG taken 9:39:00 Bilateral groins prepped with 2% chlorhexidine, and draped after a 3 minute waiting time. 9:39:13 HR=73 bpm, NYOU=663/83 mmhg, SpO2=98.0 %, Resp=18 B/min, Pain=2, Viviana=9, Bernal=2 9:43:43 MD paged 9:44:12 HR=72 bpm, RABN=641/88 mmhg, SpO2=98.0 %, Resp=17 B/min, Bernal=2 9:45:24 Pressure channel 1 zeroed. 9:49:05 HR=71 bpm, WGKN=591/89 mmhg, SpO2=97.0 %, Resp=11 B/min, Bernal=2 9:54:10 HR=69 bpm, FKET=334/78 mmhg, SpO2=98.0 %, Resp=19 B/min, Bernal=2 9:55:41 MD arrived. Time Out. Correct patient, correct procedure, correct physician, power injector loaded, or not loaded with contrast with 9:58:44 surgical team present. Time Out Concurred by MD and individual staff in procedure. 9:59:07 HR=73 bpm, ASML=933/85 mmhg, SpO2=98.0 %, Resp=23 B/min, Bernal=2 9:59:14 Case Start 20 mL 1% XYLOCAINE given in lab by Enrique Foreman in Right Groin via Subcutaneous. Ordered by Kellen, 9:59:22 Enrique. 10:04:26 Access site was Right Femoral Artery. 10:05:00 HR=78 bpm, LDXC=563/102 mmhg, SpO2=95.0 %, Resp=14 B/min, Bernal=2 10:05:48 A SHEATH, FR4 TERUMO (10CM) FR 4 was advanced into the Fem Art (right) using the Modified S eldinger technique. 10:05:56 Saturation: Site=Ao (Aorta) , O2=96 %, Hgb=15 gm/dl, Condition=Condition 1. Used in calcula tion. 10:06:51 Access site was Right Femoral Vein. 10:07:04 A SHEATH, FR6 TERUMO (10CM) FR 6 was advanced into the Fem Vein (right) using the Modified Seldinger technique. 10:07:45 12.5 mcg FENTANYL given in lab by Billie Balderas RN via Peripheral IV. Ordered by Enrique Tran. 10:08:13 A CATHETER, FR5 SWAN SEAN MONITOR FR 5 was inserted via Fem Vein (right) 10:09:52 HR=73 bpm, MSKZ=340/97 mmhg, SpO2=97.0 %, Resp=13 B/min, Bernal=2 Recorded Pressure: MPA, HR=74, Condition=Condition 1 10:09:53 (Main Pulmonary Artery) MPA 59/26/42 10:10:05 Saturation: Site=PA (Pulmonary Artery) , O2=74.7 %, Hgb=15 gm/dl, Condition=Condition 1. Us ed in calculation. Recorded Pressure: PCW, HR=72, Condition=Condition 1 10:10:52 (Pulmonary Capillary Wedge) PCW 32/34/25 Recorded Pressure: RV, HR=75, Condition=Condition 1 10:11:27 (Right Ventricle) RV 61/8/14 Recorded Pressure: RA, HR=73, Condition=Condition 1 10:12:56 (Right Atrium) RA 18/15/12 10:13:23 Saturation: Site=RA (Right Atrium) , O2=74.7 %, Hgb=15 gm/dl, Condition=Condition 1. Used i n calculation. 10:14:15 HR=73 bpm, CVJV=716/94 mmhg, SpO2=99.0 %, Resp=18 B/min, Bernal=2 10:15:07 [place] Sean Catheter Removed 10:15:35 A JR 4.0 INFINITI CATHETER FR 4 was advanced over a wire. contrast was used for injections. Recorded Pressure: LV, HR=72, Condition=Condition 1 10:16:41 (Left Ventricle) LV 226/17/26 Recorded Pressure: Ao, HR=73, Condition=Condition 1 10:17:16 (Aorta) Ao 212/91/137 10:18:15 The LV was manually injected with 10 cc's and visualized. contrast used. 10:18:21 The RCA was injected and visualized at various angles. contrast used. After removing the current catheter a JL 4.0 INFINITI CATHETER FR 4 was advanced over a WIRE, 3 MMJ .035 180CM 10:18:31 180CM. 10:19:20 HR=75 bpm, TYFV=528/90 mmhg, SpO2=98.0 %, Resp=21 B/min, Bernal=2 10:19:48 The LCA was injected and visualized at various angles. contrast used. 50 mcg/min NITROGLYCERIN DRIP given in lab by Billie Balderas, BRITT via Peripheral IV. Pump/Drip Flow = 15 ml/hr 10:21:26 using D5W with a concentration of 50 mg in 250 ml. Ordered by Enrique Foreman. 10:22:08 Case End 10:22:23 No case complications noted. 10:25:02 HR=78 bpm, VAPQ=225/87 mmhg, SpO2=92.0 %, Resp=14 B/min, Bernal=2 10:25:28 40 mg LASIX given in lab by Billie Balderas, RN via Peripheral IV. Ordered by Js Foreman. 10:26:16 Bedside Report will be given. 10:28:34 A Left and Right Heart Cath was performed. 10:29:12 HR=76 bpm, KOAJ=560/85 mmhg, SpO2=96.0 %, Resp=20 B/min, Bernal=2 10:30:30 NIBP STAT measurement started. 10:30:41 In the Fem Art (right) the SHEATH, FR4 TERUMO (10CM) FR [address] by Jesse Alvarez, RT(R). 10:30:51 In the Fem Vein (right) the SHEATH, FR6 TERUMO (10CM) FR [address] by Jesse Black, RT(R). 10:31:58 HR=76 bpm, IRYB=959/77 mmhg, SpO2=97.0 %, Resp=13 B/min, Bernal=2 10:32:02 Vitals capture stopped. 10:32:21 Sterile dressing applied to site 10:35:09 [facility] End Study - Contrast Media Used In Study Contrast Total Opened (mL) Total Used (mL) Total Wasted (mL) Omnipaque 50 40 10 End Study - Maximum Contrast Load Max Contrast Load (mL) 341.3 End Study - Radiation Exposure Fluoro Time (minutes) 4.0 End Study - Patient Disposition Complications Transferred To Interventional Outcome No Critical Care Bed No attempt made
[2017-12-13] MEDS ORDERED: IOHEXOL 350 MG/ML 50 ML BTL (for Cath Lab) OTHER ONE (10:58)
[2017-12-13] MEDS: LIDOCAINE HCL 5% PATCH T-DERMAL SCH (11:36)
[2017-12-13] MEDS: ASPIRIN EC 81 MG TABEC PO SCH (11:37)
[2017-12-13] MEDS ORDERED: BACITRACIN OINT 0.9 GM PKT TOP ONE (12:00)
--- NOTE | 2017-12-13 13:48 | HHI.PR ---
Subjective Remarks Follow-up for hypoxic respiratory failure, unstable angina. Patient was seen in the ICU. Currently resting in bed after cardiac catheterization. Denies any chest pain, fever or chills. She is doing well on nasal cannula. Objective Vitals Vital Signs Date Time Temp Pulse Resp B/P (MAP) Pulse Ox O2 Delivery O2 Flow Rate FiO2 12/13/17 07:33 93 Nasal Cannula 4.00 12/13/17 04:00 98.8 77 25 190/86 (120) 96 12/13/17 00:00 98.2 81 18 146/64 (91) 93 12/12/17 23:00 83 12/12/17 21:30 97.8 80 25 161/72 (101) 92 12/12/17 20:41 87 16 175/82 (113) 98 12/12/17 19:05 88 22 95 Nasal Cannula 2.00 12/12/17 19:03 89 22 133/56 (81) 95 Nasal Cannula 2.00 12/12/17 19:00 97 Nasal Cannula 3.00 12/12/17 18:29 87 22 143/56 (85) 95 Nasal Cannula 2.00 12/12/17 18:13 93 24 158/57 (90) 93 Nasal Cannula 2.00 12/12/17 18:03 95 22 132/67 (88) 96 Nasal Cannula 2.00 12/12/17 17:47 88 26 141/58 (85) 97 Nasal Cannula 2.00 12/12/17 17:22 88 22 144/57 (86) 95 Nasal Cannula 2.00 12/12/17 17:12 88 20 128/56 (80) 95 Nasal Cannula 2.00 12/12/17 17:04 86 18 158/60 (92) 93 Nasal Cannula 2.00 12/12/17 16:53 82 18 193/82 (119) 94 Nasal Cannula 2.00 12/12/17 16:33 Nasal Cannula 2.00 12/12/17 16:33 99.3 83 18 206/89 (128) 98 Nasal Cannula 2.00 12/12/17 15:14 80 215/81 (125) 12/12/17 14:50 80 18 192/67 (108) 94 Nasal Cannula 2.00 12/12/17 14:21 78 18 208/88 (128) 94 Nasal Cannula 2.00 I/O 12/12/17 12/12/17 12/12/17 12/13/17 12/13/17 12/13/17 07:00 15:00 23:00 07:00 15:00 23:00 Intake Total 650 ml Output Total 350 ml Balance 650 ml -350 ml Intake Oral 100 ml IV Total 550 ml Output Urine Total 350 ml # Voids 1 # Bowel Movements 0 Result Diagram: 12/12/17 1315 12/12/17 [address] Angiography 12/12/17 1421 Signed Impressions: Service Date/Time: December 16:03 - CONCLUSION: Bilobed elongated infiltrate within the lingula most likely from an area of rounded pneumonia. Due to the soft tissue and spiculated margin followup noncontrast chest CT recommended in one month. Small amounts of air space disease in both lung bases. No evidence of pulmonary embolism. Jorge Mccatrhy MD Chest X-Ray 12/12/17 1311 Signed Impressions: Service Date/Time: December 13:46 - CONCLUSION: Normal examination. Diffuse widespread interstitial lung disease Jorge Mccarthy MD Objective Remarks GENERAL: Alert, NAD. SKIN: Warm and dry. HEAD: Normocephalic. EYES: No scleral icterus. No injection or drainage. NECK: Supple, trachea midline. No JVD or lymphadenopathy. CARDIOVASCULAR: Regular rate and rhythm without murmurs, gallops, or rubs. RESPIRATORY: Breath sounds equal bilaterally. No accessory muscle use. GASTROINTESTINAL: Abdomen soft, non-tender, nondistended. MUSCULOSKELETAL: No cyanosis, or edema. BACK: Nontender without obvious deformity. No CVA tenderness. Procedures Cardiac catheterization. Full report pending. A/P Problem List: (1) Unstable angina ICD Code: I20.0 - Unstable angina (2) Pneumonia ICD Code: J18.9 - Pneumonia, unspecified organism Status: Acute Assessment and Plan Ms. Estrada is a 62-year-old female with a history of COPD who presented to the emergency department on 12/12/2017 due to shortness of breath. Patient was admitted for acute hypoxic respiratory failure as well as suspected unstable angina. CT PE study shows no pulmonary embolism. Cardiology was consulted and patient underwent cardiac catheterization. -Acute hypoxic respiratory failure -Probable COPD exacerbation -Pneumonia -Since patient is in the ICU, will initiate double coverage with ceftriaxone 2 g every 24 hours and continue Levaquin 750 mg p.o. daily. -Patient is currently on Solu-Medrol 60 mg IV every 12 hours. -Ipratropium nebulizer every 6 hours. Continue Symbicort. -Supplemental oxygen to keep O2 saturation above 90% - Unstable angina -Patient underwent cardiac catheterization on 12/13/2017. Full report pending. -Continue aspirin 81 mg, atorvastatin 40 mg, lisinopril 20 mg, metoprolol 100 mg twice daily. -Continue furosemide 20mg IV twice daily. -Alcohol and Tobacco abuse - Anxiety - Will start CIWA protocol. Clonazepam for anxiety. Full code. Anti-coagulation when okay with Cardiology. Discharge plan: Possible discharge on 12/14/2017 after cardiac clearance. Problem Qualifiers (1) Pneumonia: Qualified Codes: J18.1 - Lobar pneumonia, unspecified organism Yokasta Graff DO Dec 13, 2017 13:48
[2017-12-13] MEDS ORDERED: LORazepam 1 MG TAB PO PRN (14:30)
[2017-12-13] MEDS ORDERED: FLUMAZENIL 0.5 MG/5 ML VIAL IV PUSH PRN (14:30)
[2017-12-13] MEDS ORDERED: LORazepam 2 MG/ML VIAL IV PUSH PRN ×4 (14:30)
[2017-12-13] MEDS ORDERED: LORazepam 2 MG TAB PO PRN (14:30)
[2017-12-13] MEDS: ACETAMINOPHEN/HYDROcodone 325 MG/5 MG TAB PO PRN (14:30)
[2017-12-13] MEDS ORDERED: LEVOFLOXACIN 750 MG PREMIX INJ 150 ML IV SCH (15:00)
[2017-12-13] MEDS ORDERED: RESP: IPRATROPIUM 0.5 MG/2.5 ML NEB NEB PRN (18:00)
[2017-12-13] MEDS: FUROSEMIDE 20 MG/2 ML VIAL IV PUSH SCH (18:25)
[2017-12-13] MEDS: ATORVASTATIN 40 MG TAB PO SCH (20:44)
[2017-12-13] MEDS: cefTRIAXone INJ 2,000 MG in SODIUM CHLORIDE 0.9% INJ 100 ML IV SCH (20:45)
[2017-12-13] MEDS: SODIUM CHLORIDE 0.9% FLUSH 10 ML FLUSH IV FLUSH SCH (20:45)
[2017-12-14] VITALS (11 sets, daily range): BP systolic 128–219; BP diastolic 62–98; PULSE 63–78; RESP 13–36; TEMP 98.3–98.9; O2SAT 84–97
[2017-12-14] MEDS: CHLORHEXIDINE GLUCONATE 2 % 1 PACK (2 CLOTHS)(taper/protocol) TOPICAL SCH (03:04)
[2017-12-14 05:49] LABS: HEMATOCRIT 37.2 % (35.0-46.0); HEMOGLOBIN 12.6 GM/DL (11.6-15.3); LYMPHOCYTE # 0.4 TH/MM3 (1.0-4.8); MEAN CELL VOLUME 100.8 FL (80.0-100.0); MEAN CORPUSCULAR HEMOGLOBIN 34.1 PG (27.0-34.0); MEAN CORPUSCULAR HGB CONC 33.8 % (32.0-36.0); MEAN PLATELET VOLUME 9.8 FL (7.0-11.0); MONO % 4.3 % (0.0-8.0); MONOCYTE # 0.4 TH/MM3 (0-0.9); NEUT % 91.7 % (16.0-70.0); PLATELET COUNT 220 TH/MM3 (150-450); RED BLOOD COUNT 3.69 MIL/MM3 (4.00-5.30); RED CELL DISTRIBUTION WIDTH 14.1 % (11.6-17.2); WHITE BLOOD COUNT 9.8 TH/MM3 (4.0-11.0)
[2017-12-14 06:07] LABS: CALCIUM 8.7 MG/DL (8.5-10.1); CREATININE 1.28 MG/DL (0.50-1.00); MAGNESIUM 1.8 MG/DL (1.5-2.5)
--- NOTE | 2017-12-14 07:54 | HHI.PR ---
Subjective Remarks Follow-up for hypoxic respiratory failure, unstable angina. Patient is currently doing well. No fever or chills. She does complain of cough. She reports that at home she does not use any supplemental oxygen. She normally has O2 saturation in the mid 80s. Objective Vitals Vital Signs Date Time Temp Pulse Resp B/P (MAP) Pulse Ox O2 Delivery O2 Flow Rate FiO2 12/14/17 04:00 98.7 73 13 157/98 (117) 97 12/14/17 04:00 98.5 65 16 128/62 (84) 92 12/14/17 00:00 98.8 71 13 157/98 (117) 97 12/13/17 23:00 69 12/13/17 20:15 96 Nasal Cannula 4.00 12/13/17 20:00 98.4 71 19 122/57 (78) 92 12/13/17 19:00 64 19 146/67 (93) 12/13/17 18:31 70 24 151/69 (96) 12/13/17 18:25 72 27 158/69 (98) 12/13/17 18:20 77 22 175/72 (106) 12/13/17 18:19 79 25 159/73 (101) 12/13/17 18:10 78 37 177/80 (112) 12/13/17 18:05 78 40 180/74 (109) 100 12/13/17 18:01 78 36 181/74 (109) 100 12/13/17 18:00 78 34 100 12/13/17 17:40 77 24 158/68 (98) 100 12/13/17 17:35 81 22 161/70 (100) 100 12/13/17 17:30 82 18 171/72 (105) 98 12/13/17 17:25 80 18 175/71 (105) 99 12/13/17 17:20 85 25 154/67 (96) 100 12/13/17 17:15 85 32 158/67 (97) 96 12/13/17 17:10 86 31 147/67 (93) 90 18 17:05 87 32 150/67 (94) 90 12/13/17 17:00 87 32 148/65 (92) 91 12/13/17 16:55 86 31 154/70 (98) 91 3/2/18 16:50 87 31 150/65 (93) 92 3/2/18 16:45 86 31 143/63 (89) 92 3/2/18 16:40 85 33 136/64 (88) 92 3/2/18 16:35 85 32 138/78 (98) 93 3/2/18 16:30 85 30 148/67 (94) 94 3/2/18 16:20 84 31 146/67 (93) 95 3/2/18 16:15 82 33 149/64 (92) 94 3/2/18 16:10 80 29 136/63 (87) 96 3/2/18 16:05 80 35 145/67 (93) 96 3/2/18 16:00 80 31 151/66 (94) 98 3/2/18 15:15 71 15 141/63 (89) 95 3/2/18 15:10 72 35 118/50 (72) 95 3/2/18 15:05 71 19 141/63 (89) 93 3/2/18 15:00 72 19 128/59 (82) 92 3/2/18 14:55 73 21 127/59 (81) 89 3/2/18 14:50 75 26 156/71 (99) 90 3/2/18 14:46 72 23 157/59 (91) 92 3/2/18 14:45 75 18 187/80 (115) 90 3/2/18 14:40 72 21 182/81 (114) 92 3/2/18 14:39 73 17 187/79 (115) 92 3/2/18 14:35 73 19 195/86 (122) 93 3/2/18 14:30 75 30 187/79 (115) 93 3/2/18 14:25 72 20 166/73 (104) 94 3/2/18 14:20 72 19 170/74 (106) 93 3/2/18 14:15 73 15 157/59 (91) 93 3/2/18 14:10 72 15 167/74 (105) 91 3/2/18 14:05 73 16 175/78 (110) 92 3/2/18 14:02 75 22 172/79 (110) 93 3/2/18 14:00 72 16 176/77 (110) 91 3/2/18 13:15 74 20 167/74 (105) 91 3/2/18 13:10 73 17 173/76 (108) 91 18 13:05 73 17 168/74 (105) 90 18 13:03 74 17 168/74 (105) 91 12/13/17 13:02 75 17 156/57 (90) 90 12/13/17 13:02 75 17 156/57 (90) 90 12/13/17 13:01 74 18 13:01 74 18 168/73 (104) 90 18 13:01 74 18 168/73 (104) 90 12/13/17 13:00 74 18 13:00 74 17 175/75 (108) 91 12/13/17 13:00 74 17 175/75 (108) 91 12/13/17 12:59 74 26 180/75 (110) 91 12/13/17 12:59 74 26 180/75 (110) 91 12/13/17 12:59 74 18 12:58 74 18 12:58 74 20 146/70 (95) 91 18 12:58 74 20 146/70 (95) 91 12/13/17 12:57 75 26 192/83 (119) 92 18 12:57 75 26 192/83 (119) 92 18 12:57 75 18 12:33 74 18 12:33 74 19 172/76 (108) 12/13/17 12:33 74 19 172/76 (108) 12/13/17 12:30 74 12 185/78 (113) 18 12:30 74 12 185/78 (113) 18 12:30 74 18 12:00 73 15 158/71 (100) 18 12:00 73 18 12:00 73 15 158/71 (100) 12/13/17 11:38 73 218 11:38 73 24 178/79 (112) 12/13/17 11:38 73 24 178/79 (112) 12/13/17 11:34 74 18 11:34 74 12 183/81 (115) 12/13/17 11:34 74 12 183/81 (115) 12/13/17 11:30 75 20 205/93 (130) 12/13/17 11:30 75 12/13/17 11:30 75 20 205/93 (130) 12/13/17 11:00 75 17 178/79 (112) 12/13/17 11:00 75 17 178/79 (112) 12/13/17 11:00 75 12/13/17 10:49 76 12/13/17 10:49 76 18 189/82 (117) 12/13/17 10:49 76 18 189/82 (117) 12/13/17 10:47 78 17 196/88 (124) 12/13/17 10:47 78 12/13/17 10:47 78 17 196/88 (124) 12/13/17 10:21 78 198/99 12/13/17 09:09 78 12/13/17 09:09 78 30 196/81 (119) 94 12/13/17 09:08 79 38 206/88 (127) 94 12/13/17 09:08 79 12/13/17 09:00 74 12/13/17 09:00 74 27 196/83 (120) 95 12/13/17 08:30 71 12/13/17 08:30 71 19 168/75 (106) 91 12/13/17 08:00 71 12/13/17 08:00 71 21 155/70 (98) 90 I/O 12/13/17 12/13/17 12/13/17 12/14/17 12/14/17 12/14/17 07:00 15:00 23:00 07:00 15:00 23:00 Intake Total 460 ml 100 ml Output Total 350 ml 1600 ml 650 ml Balance -350 ml -1140 ml -550 ml Intake Oral 210 ml 100 ml IV Total 250 ml Output Urine Total 350 ml 1600 ml 650 ml # Voids 1 1 # Bowel Movements 0 0 Result Diagram: 12/14/17 04112/14/17 [address] Angiography 12/12/17 1421 Signed Impressions: Service Date/Time: December 16:03 - CONCLUSION: Bilobed elongated infiltrate within the lingula most likely from an area of rounded pneumonia. Due to the soft tissue and spiculated margin followup noncontrast chest CT recommended in one month. Small amounts of air space disease in both lung bases. No evidence of pulmonary embolism. Jorge Mccarthy MD Chest X-Ray 12/12/17 1311 Signed Impressions: Service Date/Time: December 13:46 - CONCLUSION: Normal examination. Diffuse widespread interstitial lung disease Jorge Mccarthy MD Objective Remarks GENERAL: Alert, NAD. SKIN: Warm and dry. HEAD: Normocephalic. EYES: No scleral icterus. No injection or drainage. NECK: Supple, trachea midline. No JVD or lymphadenopathy. CARDIOVASCULAR: Regular rate and rhythm without murmurs, gallops, or rubs. RESPIRATORY: Breath sounds equal bilaterally. No accessory muscle use. GASTROINTESTINAL: Abdomen soft, non-tender, nondistended. MUSCULOSKELETAL: No cyanosis, or edema. BACK: Nontender without obvious deformity. No CVA tenderness. Procedures Cardiac catheterization. Full report pending. A/P Problem List: (1) Unstable angina ICD Code: I20.0 - Unstable angina (2) Pneumonia ICD Code: J18.9 - Pneumonia, unspecified organism Status: Acute Assessment and Plan Ms. Estrada is a 62-year-old female with a history of COPD who presented to the emergency department on 12/12/2017 due to shortness of breath. Patient was admitted for acute hypoxic respiratory failure as well as suspected unstable angina. CT PE study shows no pulmonary embolism. Cardiology was consulted and patient underwent cardiac catheterization. -Acute hypoxic respiratory failure -Probable COPD exacerbation -Pneumonia -Since patient is in the ICU, will initiate double coverage with ceftriaxone 2 g every 24 hours and continue Levaquin 750 mg p.o. daily. -We will change Solu-Medrol to 40 mg IV every 6 hours. -Continue Symbicort. DC ipratropium and start DuoNeb scheduled and as needed. -Supplemental oxygen to keep O2 saturation above 90% - Unstable angina -Patient underwent cardiac catheterization on 12/13/2017. Full report pending. -Continue aspirin 81 mg, atorvastatin 40 mg, lisinopril 20 mg, metoprolol 100 mg twice daily. -Continue furosemide 20mg IV twice daily. -Alcohol and Tobacco abuse - Anxiety - Will continue CIWA protocol. Clonazepam for anxiety. Full code. Lovenox. Problem Qualifiers (1) Pneumonia: Qualified Codes: J18.1 - Lobar pneumonia, unspecified organism Yokasta Graff DO Dec 14, 2017 07:54
[2017-12-14] MEDS ORDERED: RESP: IPRATROPIUM 0.5 MG/2.5 ML NEB NEB SCH (08:00)
[2017-12-14] MEDS: ASPIRIN EC 81 MG TABEC PO SCH (08:53)
[2017-12-14] MEDS: METOPROLOL TARTRATE 100 MG TAB PO SCH ×2 (08:53→21:10)
[2017-12-14] MEDS: LISINOPRIL 20 MG TAB PO SCH (08:53)
[2017-12-14] MEDS: LEVOFLOXACIN 750 MG TAB PO SCH (08:53)
[2017-12-14] MEDS: SODIUM CHLORIDE 0.9% FLUSH 10 ML FLUSH IV FLUSH SCH ×2 (08:54→21:10)
[2017-12-14] MEDS: FUROSEMIDE 20 MG/2 ML VIAL IV PUSH SCH ×2 (08:54→17:22)
[2017-12-14] MEDS: BUDESONIDE-FORMOTEROL 80/4.5 MCG INHALER INH SCH ×2 (08:54→21:00)
[2017-12-14] MEDS: LIDOCAINE HCL 5% PATCH T-DERMAL SCH (08:54)
--- NOTE | 2017-12-14 09:59 | EKG ---
Date Performed: 12/13/2017 Time Performed: 12:48:30 PTAGE: 62 years EKG: Sinus rhythm RIGHT ATRIAL ENLARGEMENT LEFT ATRIAL ENLARGEMENT LEFT VENTRICULAR HYPERTROPHY AND ST-T CHANGE ABNORM AL ECG PREVIOUS TRACING : 12/12/2017 17.23 DOCTOR: Jorge Ureña Interpretating Date/Time 12/14/2017 09:57:43
[2017-12-14] MEDS ORDERED: RESP: ALBUTEROL 2.5 MG/IPRATROPIUM 0.5 MG NEB (PRN) NEB (10:00)
[2017-12-14] MEDS: clonazePAM 0.5 MG TAB PO PRN ×2 (12:05→21:40)
[2017-12-14] MEDS: methylPREDNISolone SOD SUCC 40 MG/1 ML VIAL IV PUSH SCH ×2 (12:05→17:22)
[2017-12-14] MEDS: RESP: ALBUTEROL 2.5 MG/IPRATROPIUM 0.5 MG NEB (SCH) NEB ×2 (14:00→20:23)
[2017-12-14] MEDS: ENOXAPARIN SODIUM 30 MG/0.3 ML SYRINGE SQ SCH (16:19)
[2017-12-14] MEDS ORDERED: LABETALOL HCL 100 MG/20 ML VIAL ONE (16:41)
[2017-12-14] MEDS ORDERED: LABETALOL HCL 100 MG/20 ML VIAL IV PUSH PRN (16:45)
[2017-12-14] MEDS ORDERED: LABETALOL HCL 100 MG/20 ML VIAL IV PUSH ONE (16:45)
[2017-12-14] MEDS ORDERED: NIFEdipine 60 MG SUSTAINED RELEASE TAB PO ONE (16:45)
--- NOTE | 2017-12-14 16:49 | PD.CARD.PN ---
Subjective Subjective Remarks alert in nad Objective Medications Current Medications Medications (Trade) Dose Ordered Sig/Deb Route Start Time Stop Time Status Last Admin (Lopressor) 100 mg BID PO 12/12/17 21:00 12/14/17 08:53 (Symbicort 80-4.5 Mcg Inh) 1 puff BID INH 12/12/17 21:00 12/14/17 08:54 (Lidoderm 5% Patch.12 Hr) 1 patch DAILY T-DERMAL 12/12/17 20:00 12/13/17 11:36 (Lipitor) 40 mg HS PO 12/12/17 21:00 12/13/17 20:44 (Vasotec Inj) 1.25 mg Q4HR PRN IV PUSH 12/12/17 18:30 (Prinivil) 20 mg DAILY PO 12/13/17 09:00 12/14/17 08:53 (Ecotrin Ec) 81 mg DAILY PO 12/13/17 09:00 12/14/17 08:53 Miscellaneous Information Patient in critical care unit? Ass... Q361D .XX 12/12/17 22:15 12/12/17 22:15 (Chlorhexidine 2% Cloth) 3 pack DAILY@04 TOPICAL 12/13/17 04:00 12/17/17 04:01 12/14/17 03:04 (Chlorhexidine 2% Cloth) 3 pack UNSCH PRN TOPICAL 12/12/17 22:15 12/17/17 22:10 ([place] 5-325 Mg) 1 tab Q4H PRN PO 12/12/17 23:15 12/13/17 14:30 (NS Flush) 2 ml BID IV FLUSH 12/13/17 21:00 12/14/17 08:54 (NS Flush) 2 ml UNSCH PRN IV FLUSH 12/13/17 10:30 (Lasix Inj) 20 mg BID@,18 IV PUSH 12/13/17 18:00 12/14/17 08:54 (Romazicon Inj) 0.2 mg Q1M PRN IV PUSH 12/13/17 14:30 (Ativan) 1 mg Q4H PRN PO 12/13/17 14:30 12/14/17 16:19 (Ativan Inj) 1 mg Q4H PRN IV PUSH 12/13/17 14:30 (Ativan) 2 mg Q2H PRN PO 12/13/17 14:30 (Ativan Inj) 2 mg Q2H PRN IV PUSH 12/13/17 14:30 (Ativan Inj) 2 mg Q1H PRN IV PUSH 12/13/17 14:30 (Ativan Inj) 2 mg Q15M PRN IV PUSH 12/13/17 14:30 12/13/17 14:32 (KlonoPIN) 0.5 mg Q8HR PRN PO 12/13/17 14:30 12/14/17 12:05 Ceftriaxone Sodium 2000 mg/ Sodium Chloride 100 ml @ 200 mls/hr Q24H IV 12/13/17 20:00 12/13/17 20:45 (Levaquin) 750 mg DAILY PO 12/14/17 09:00 12/14/17 08:53 (SoluMEDROL INJ) 40 mg Q6HR IV PUSH 12/14/17 12:00 12/14/17 12:05 (Duoneb Neb) 1 ampule Q6HR WHILE AWAKE NEB NEB 12/14/17 14:00 (Duoneb Neb) 1 ampule Q4HR NEB PRN NEB 12/14/17 10:00 (Lovenox Inj) 30 mg Q24H SQ 12/14/17 16:00 12/14/17 16:19 (Trandate Inj) 20 mg ONCE ONCE IV PUSH 12/14/17 16:45 12/14/17 16:46 12/14/17 16:45 (Trandate Inj) 10 mg Q6H PRN IV PUSH 12/14/17 16:45 (Procardia Xl) 60 mg ONCE ONCE PO 12/14/17 16:45 12/14/17 16:46 (Procardia Xl) 60 mg DAILY PO 12/15/17 09:00 Vital Signs / I&O Vital Signs Date Time Temp Pulse Resp B/P (MAP) Pulse Ox O2 Delivery O2 Flow Rate FiO2 12/14/17 16:00 70 12/14/17 14:00 73 12/14/17 12:00 98.5 63 18 157/68 (97) 92 12/14/17 12:00 63 12/14/17 10:00 96 Nasal Cannula 4.00 12/14/17 10:00 64 12/14/17 09:30 87 Nasal Cannula 4.00 12/14/17 09:01 Nasal Cannula 4.00 12/14/17 09:00 79 12/14/17 08:00 68 12/14/17 08:00 85 12/14/17 08:00 98.9 76 22 158/67 (97) 84 12/14/17 07:30 98 12/14/17 07:00 96 Nasal Cannula 4.00 12/14/17 04:00 98.7 73 13 157/98 (117) 97 12/14/17 04:00 98.5 65 16 128/62 (84) 92 12/14/17 00:00 98.8 71 13 157/98 (117) 97 12/13/17 23:00 69 12/13/17 20:15 96 Nasal Cannula 4.00 12/13/17 20:00 98.4 71 19 122/57 (78) 92 12/13/17 19:00 64 19 146/67 (93) 12/13/17 18:31 70 24 151/69 (96) 12/13/17 18:25 72 27 158/69 (98) 12/13/17 18:20 77 22 175/72 (106) 12/13/17 18:19 79 25 159/73 (101) 12/13/17 18:10 78 37 177/80 (112) 12/13/17 18:05 78 40 180/74 (109) 100 12/13/17 18:01 78 36 181/74 (109) 100 12/13/17 18:00 78 34 100 12/13/17 17:40 77 24 158/68 (98) 100 12/13/17 17:35 81 22 161/70 (100) 100 12/13/17 17:30 82 18 171/72 (105) 98 12/13/17 17:25 80 18 175/71 (105) 99 12/13/17 17:20 85 25 154/67 (96) 100 12/13/17 17:15 85 32 158/67 (97) 96 12/13/17 17:10 86 31 147/67 (93) 90 12/13/17 17:05 87 32 150/67 (94) 90 18 17:00 87 32 148/65 (92) 91 12/13/17 16:55 86 31 154/70 (98) 91 12/13/17 16:50 87 31 150/65 (93) 92 I/O 12/13/17 12/13/17 12/13/17 12/14/17 12/14/17 12/14/17 07:00 15:00 23:00 07:00 15:00 23:00 Intake Total 460 ml 100 ml Output Total 350 ml 1600 ml 650 ml Balance -350 ml -1140 ml -550 ml Intake Oral 210 ml 100 ml IV Total 250 ml Output Urine Total 350 ml 1600 ml 650 ml # Voids 1 1 # Bowel Movements 0 0 Physical Exam GENERAL: SKIN: Warm and dry. HEAD: Normocephalic. EYES: No scleral icterus. No injection or drainage. NECK: Supple, trachea midline. No JVD or lymphadenopathy. CARDIOVASCULAR: Regular rate and rhythm without murmurs, gallops, or rubs. RESPIRATORY: Breath sounds equal bilaterally. No accessory muscle use. GASTROINTESTINAL: Abdomen soft, non-tender, nondistended. MUSCULOSKELETAL: No cyanosis, or edema. BACK: Nontender without obvious deformity. No CVA tenderness. Laboratory Laboratory Tests Test 12/14/17 04:12 White Blood Count 9.8 TH/MM3 Red Blood Count 3.69 MIL/MM3 Hemoglobin 12.6 GM/DL Hematocrit 37.2 % Mean Corpuscular Volume 100.8 FL Mean Corpuscular Hemoglobin 34.1 PG Mean Corpuscular Hemoglobin Concent 33.8 % Red Cell Distribution Width 14.1 % Platelet Count 220 TH/MM3 Mean Platelet Volume 9.8 FL Neutrophils (%) (Auto) 91.7 % Lymphocytes (%) (Auto) 4.0 % Monocytes (%) (Auto) 4.3 % Eosinophils (%) (Auto) 0.0 % Basophils (%) (Auto) 0.0 % Neutrophils # (Auto) 9.0 TH/MM3 Lymphocytes # (Auto) 0.4 TH/MM3 Monocytes # (Auto) 0.4 TH/MM3 Eosinophils # (Auto) 0.0 TH/MM3 Basophils # (Auto) 0.0 TH/MM3 CBC Comment DIFF FINAL Differential Comment Blood Urea Nitrogen 35 MG/DL Creatinine 1.28 MG/DL Random Glucose 135 MG/DL Calcium Level 8.7 MG/DL Magnesium Level 1.8 MG/DL Sodium Level 140 MEQ/L Potassium Level 4.8 MEQ/L Chloride Level 102 MEQ/L Carbon Dioxide Level 29.0 MEQ/L Anion Gap 9 MEQ/L Estimat Glomerular Filtration Rate 42 ML/MIN B-Type Natriuretic Peptide 407 PG/ML Assessment and Plan Problem List: (1) CAD (coronary artery disease) ICD Codes: I25.10 - Atherosclerotic heart disease of [place] coronary artery without angina pectoris (2) Hypoxia ICD Codes: R09.02 - Hypoxemia Status: Acute (3) Pneumonia ICD Codes: J18.9 - Pneumonia, unspecified organism Status: Acute Assessment and Plan 1.) CAD - assymptomatic, non obstructive cad, continue aspirin, lipitor, lopressor, lisinopril; ekg changes and chf due to hypoxia Problem Qualifiers (1) Pneumonia: Qualified Codes: J18.1 - Lobar pneumonia, unspecified organism Enrique Foreman MD Dec 14, 2017 16:49
[2017-12-14] MEDS: cefTRIAXone INJ 2,000 MG in SODIUM CHLORIDE 0.9% INJ 100 ML IV SCH (21:09)
[2017-12-14] MEDS: ATORVASTATIN 40 MG TAB PO SCH (21:10)
[2017-12-15] VITALS (14 sets, daily range): BP systolic 108–137; BP diastolic 53–64; PULSE 63–77; RESP 18–24; TEMP 97.3–98.6; O2SAT 82–94
[2017-12-15] MEDS: methylPREDNISolone SOD SUCC 40 MG/1 ML VIAL IV PUSH SCH ×4 (00:12→16:49)
[2017-12-15] MEDS: CHLORHEXIDINE GLUCONATE 2 % 1 PACK (2 CLOTHS)(taper/protocol) TOPICAL SCH (04:00)
[2017-12-15] MEDS: ACETAMINOPHEN/HYDROcodone 325 MG/5 MG TAB PO PRN (05:33)
[2017-12-15] MEDS: RESP: ALBUTEROL 2.5 MG/IPRATROPIUM 0.5 MG NEB (SCH) NEB ×3 (07:34→20:22)
[2017-12-15] MEDS: LEVOFLOXACIN 750 MG TAB PO SCH (08:56)
[2017-12-15] MEDS: LISINOPRIL 20 MG TAB PO SCH (08:56)
[2017-12-15] MEDS: NIFEdipine 60 MG SUSTAINED RELEASE TAB PO SCH (08:56)
[2017-12-15] MEDS: METOPROLOL TARTRATE 100 MG TAB PO SCH ×2 (08:56→21:29)
[2017-12-15] MEDS: SODIUM CHLORIDE 0.9% FLUSH 10 ML FLUSH IV FLUSH SCH ×2 (08:57→21:30)
[2017-12-15] MEDS: FUROSEMIDE 20 MG/2 ML VIAL IV PUSH SCH ×2 (08:57→16:48)
[2017-12-15] MEDS: ASPIRIN EC 81 MG TABEC PO SCH (08:57)
[2017-12-15] MEDS: LIDOCAINE HCL 5% PATCH T-DERMAL SCH (08:58)
[2017-12-15] MEDS: BUDESONIDE-FORMOTEROL 80/4.5 MCG INHALER INH SCH ×2 (08:58→21:00)
--- NOTE | 2017-12-15 12:43 | PD.CARD.PN ---
Subjective Subjective Remarks alert in nad Objective Medications Current Medications Medications (Trade) Dose Ordered Sig/Deb Route Start Time Stop Time Status Last Admin (Lopressor) 100 mg BID PO 12/12/17 21:00 12/15/17 08:56 (Symbicort 80-4.5 Mcg Inh) 1 puff BID INH 12/12/17 21:00 12/15/17 08:58 (Lidoderm 5% Patch.12 Hr) 1 patch DAILY T-DERMAL 12/12/17 20:00 12/13/17 11:36 (Lipitor) 40 mg HS PO 12/12/17 21:00 12/14/17 21:10 (Vasotec Inj) 1.25 mg Q4HR PRN IV PUSH 12/12/17 18:30 (Prinivil) 20 mg DAILY PO 12/13/17 09:00 12/15/17 08:56 (Ecotrin Ec) 81 mg DAILY PO 12/13/17 09:00 12/15/17 08:57 Miscellaneous Information Patient in critical care unit? Ass... Q361D .XX 12/12/17 22:15 12/12/17 22:15 (Chlorhexidine 2% Cloth) 3 pack DAILY@04 TOPICAL 12/13/17 04:00 12/17/17 04:01 12/15/17 04:00 (Chlorhexidine 2% Cloth) 3 pack UNSCH PRN TOPICAL 12/12/17 22:15 12/17/17 22:10 ([place] 5-325 Mg) 1 tab Q4H PRN PO 12/12/17 23:15 12/15/17 05:33 (NS Flush) 2 ml BID IV FLUSH 12/13/17 21:00 12/15/17 08:57 (NS Flush) 2 ml UNSCH PRN IV FLUSH 12/13/17 10:30 (Lasix Inj) 20 mg BID@,18 IV PUSH 12/13/17 18:00 12/15/17 08:57 (Romazicon Inj) 0.2 mg Q1M PRN IV PUSH 12/13/17 14:30 (Ativan) 1 mg Q4H PRN PO 12/13/17 14:30 12/14/17 16:19 (Ativan Inj) 1 mg Q4H PRN IV PUSH 12/13/17 14:30 (Ativan) 2 mg Q2H PRN PO 12/13/17 14:30 (Ativan Inj) 2 mg Q2H PRN IV PUSH 12/13/17 14:30 (Ativan Inj) 2 mg Q1H PRN IV PUSH 12/13/17 14:30 (Ativan Inj) 2 mg Q15M PRN IV PUSH 12/13/17 14:30 12/13/17 14:32 (KlonoPIN) 0.5 mg Q8HR PRN PO 12/13/17 14:30 12/14/17 21:40 Ceftriaxone Sodium 2000 mg/ Sodium Chloride 100 ml @ 200 mls/hr Q24H IV 12/13/17 20:00 12/14/17 21:09 (Levaquin) 750 mg DAILY PO 12/14/17 09:00 12/15/17 08:56 (SoluMEDROL INJ) 40 mg Q6HR IV PUSH 12/14/17 12:00 12/15/17 12:05 (Duoneb Neb) 1 ampule Q6HR WHILE AWAKE NEB NEB 12/14/17 14:00 12/15/17 07:34 (Duoneb Neb) 1 ampule Q4HR NEB PRN NEB 12/14/17 10:00 (Lovenox Inj) 30 mg Q24H SQ 12/14/17 16:00 12/14/17 16:19 (Trandate Inj) 10 mg Q6H PRN IV PUSH 12/14/17 16:45 (Procardia Xl) 60 mg DAILY PO 12/15/17 09:00 12/15/17 08:56 Vital Signs / I&O Vital Signs Date Time Temp Pulse Resp B/P (MAP) Pulse Ox O2 Delivery O2 Flow Rate FiO2 12/15/17 10:00 63 12/15/17 08:00 68 12/15/17 08:00 98.2 69 137/64 (88) 90 12/15/17 08:00 93 Nasal Cannula 2.00 12/15/17 07:34 92 Nasal Cannula 2.00 12/15/17 06:00 72 12/15/17 04:00 70 12/15/17 04:00 97.3 70 24 127/60 (82) 82 12/15/17 02:00 71 12/15/17 00:00 98.4 72 22 134/62 (86) 93 12/15/17 00:00 72 12/14/17 22:00 78 12/14/17 20:24 92 Nasal Cannula 2.00 12/14/17 20:00 98.3 72 22 167/71 (103) 93 12/14/17 20:00 72 12/14/17 19:00 93 2.00 12/14/17 18:00 75 12/14/17 16:00 98.5 72 36 219/88 (131) 93 12/14/17 16:00 70 12/14/17 14:00 73 I/O 12/14/17 12/14/17 12/14/17 12/15/17 12/15/17 12/15/17 07:00 15:00 23:00 07:00 15:00 23:00 Intake Total 100 ml 960 ml 100 ml Output Total 650 ml 800 ml 900 ml Balance -550 ml 160 ml -800 ml Intake Oral 100 ml 960 ml 100 ml Output Urine Total 650 ml 800 ml 900 ml Stool Total 0 ml # Voids 1 2 # Bowel Movements 0 0 0 Physical Exam GENERAL: SKIN: Warm and dry. HEAD: Normocephalic. EYES: No scleral icterus. No injection or drainage. NECK: Supple, trachea midline. No JVD or lymphadenopathy. CARDIOVASCULAR: Regular rate and rhythm without murmurs, gallops, or rubs. RESPIRATORY: Breath sounds equal bilaterally. No accessory muscle use. GASTROINTESTINAL: Abdomen soft, non-tender, nondistended. MUSCULOSKELETAL: No cyanosis, or edema. BACK: Nontender without obvious deformity. No CVA tenderness. Assessment and Plan Problem List: (1) CAD (coronary artery disease) ICD Codes: I25.10 - Atherosclerotic heart disease of [place] coronary artery without angina pectoris (2) Hypoxia ICD Codes: R09.02 - Hypoxemia Status: Acute (3) Pneumonia ICD Codes: J18.9 - Pneumonia, unspecified organism Status: Acute Assessment and Plan 1.) CAD - assymptomatic, non obstructive cad, continue aspirin, lipitor, lopressor, lisinopril; ekg changes and chf due to hypoxia Problem Qualifiers (1) Pneumonia: Qualified Codes: J18.1 - Lobar pneumonia, unspecified organism Enrique Foreman MD Dec 15, 2017 12:43
--- NOTE | 2017-12-15 15:27 | HHI.PR ---
Subjective Remarks Follow-up for hypoxic respiratory failure, unstable angina, hypertension. Patient is currently doing well. Currently on 2 L of oxygen via nasal cannula. Blood pressure well controlled. Daughter at bedside. Objective Vitals Vital Signs Date Time Temp Pulse Resp B/P (MAP) Pulse Ox O2 Delivery O2 Flow Rate FiO2 12/15/17 14:00 74 12/15/17 12:00 63 12/15/17 12:00 98.6 73 110/53 (72) 90 12/15/17 10:00 63 12/15/17 08:00 68 12/15/17 08:00 98.2 69 137/64 (88) 90 12/15/17 08:00 93 Nasal Cannula 2.00 12/15/17 07:34 92 Nasal Cannula 2.00 12/15/17 06:00 72 12/15/17 04:00 70 12/15/17 04:00 97.3 70 24 127/60 (82) 82 12/15/17 02:00 71 12/15/17 00:00 98.4 72 22 134/62 (86) 93 12/15/17 00:00 72 12/14/17 22:00 78 12/14/17 20:24 92 Nasal Cannula 2.00 12/14/17 20:00 98.3 72 22 167/71 (103) 93 12/14/17 20:00 72 12/14/17 19:00 93 2.00 12/14/17 18:00 75 12/14/17 16:00 98.5 72 36 219/88 (131) 93 12/14/17 16:00 70 I/O 12/14/17 12/14/17 12/14/17 12/15/17 12/15/17 12/15/17 07:00 15:00 23:00 07:00 15:00 23:00 Intake Total 100 ml 960 ml 100 ml Output Total 650 ml 800 ml 900 ml Balance -550 ml 160 ml -800 ml Intake Oral 100 ml 960 ml 100 ml Output Urine Total 650 ml 800 ml 900 ml Stool Total 0 ml # Voids 1 2 # Bowel Movements 0 0 0 Result Diagram: 12/14/17 0412 12/14/17 [address] Angiography 12/12/17 1421 Signed Impressions: Service Date/Time: December 16:03 - CONCLUSION: Bilobed elongated infiltrate within the lingula most likely from an area of rounded pneumonia. Due to the soft tissue and spiculated margin followup noncontrast chest CT recommended in one month. Small amounts of air space disease in both lung bases. No evidence of pulmonary embolism. Jorge Mccarthy MD Chest X-Ray 12/12/17 1311 Signed Impressions: Service Date/Time: December 13:46 - CONCLUSION: Normal examination. Diffuse widespread interstitial lung disease Jorge Mccarthy MD Objective Remarks GENERAL: Alert, NAD. SKIN: Warm and dry. HEAD: Normocephalic. EYES: No scleral icterus. No injection or drainage. NECK: Supple, trachea midline. No JVD or lymphadenopathy. CARDIOVASCULAR: Regular rate and rhythm without murmurs, gallops, or rubs. RESPIRATORY: Breath sounds equal bilaterally. No accessory muscle use. GASTROINTESTINAL: Abdomen soft, non-tender, nondistended. MUSCULOSKELETAL: No cyanosis, or edema. BACK: Nontender without obvious deformity. No CVA tenderness. Procedures Cardiac catheterization. Full report pending. A/P Problem List: (1) Unstable angina ICD Code: I20.0 - Unstable angina (2) Pneumonia ICD Code: J18.9 - Pneumonia, unspecified organism Status: Acute Assessment and Plan Ms. Estrada is a 62-year-old female with a history of COPD who presented to the emergency department on 12/12/2017 due to shortness of breath. Patient was admitted for acute hypoxic respiratory failure as well as suspected unstable angina. CT PE study shows no pulmonary embolism. Cardiology was consulted and patient underwent cardiac catheterization. -Acute hypoxic respiratory failure -Probable COPD exacerbation -Pneumonia -Continue ceftriaxone 2 g every 24 hours and continue Levaquin 750 mg p.o. daily. -We will switch IV solu-medrol to PO Prednisone 20mg BID -Continue Symbicort. DuoNeb scheduled and as needed. -Supplemental oxygen to keep O2 saturation above 90% -Unstable angina -Hypertension -Patient underwent cardiac catheterization on 12/13/2017. Full report pending. -Continue aspirin 81 mg, atorvastatin 40 mg, lisinopril 20 mg, metoprolol 100 mg twice daily. -Discontinue IV Lasix and start torsemide 10 mg daily. -Continue nifedipine 60 mg daily. -Alcohol and Tobacco abuse - Anxiety - Will continue CIWA protocol. Clonazepam for anxiety. Full code. Lovenox. Problem Qualifiers (1) Pneumonia: Qualified Codes: J18.1 - Lobar pneumonia, unspecified organism Yokasta Graff DO Dec 15, 2017 15:27
[2017-12-15] MEDS: ENOXAPARIN SODIUM 30 MG/0.3 ML SYRINGE SQ SCH (16:49)
[2017-12-15] MEDS: cefTRIAXone INJ 2,000 MG in SODIUM CHLORIDE 0.9% INJ 100 ML IV SCH (21:30)
[2017-12-15] MEDS: clonazePAM 0.5 MG TAB PO PRN (21:49)
[2017-12-15] MEDS: ATORVASTATIN 40 MG TAB PO SCH (21:49)
[2017-12-16 04:00] VITALS: BP 135/56; PULSE 82; RESP 18; TEMP 98.3; O2SAT 93
[2017-12-16] MEDS: CHLORHEXIDINE GLUCONATE 2 % 1 PACK (2 CLOTHS)(taper/protocol) TOPICAL SCH (04:00)
[2017-12-16] MEDS: RESP: ALBUTEROL 2.5 MG/IPRATROPIUM 0.5 MG NEB (SCH) NEB ×2 (07:40→12:24)
[2017-12-16 07:42] VITALS: O2SAT 95
[2017-12-16 08:07] VITALS: BP 115/56; PULSE 83; RESP 18; TEMP 97.6; O2SAT 96
[2017-12-16] MEDS: LIDOCAINE HCL 5% PATCH T-DERMAL SCH (09:00)
[2017-12-16] MEDS ORDERED: predniSONE 20 MG TAB PO SCH (09:00)
[2017-12-16] MEDS ORDERED: TORSEMIDE 5 MG TAB PO SCH (09:00)
[2017-12-16] MEDS: SODIUM CHLORIDE 0.9% FLUSH 10 ML FLUSH IV FLUSH SCH (09:36)
[2017-12-16] MEDS: LEVOFLOXACIN 750 MG TAB PO SCH (09:41)
[2017-12-16] MEDS: NIFEdipine 60 MG SUSTAINED RELEASE TAB PO SCH (09:42)
[2017-12-16] MEDS: ASPIRIN EC 81 MG TABEC PO SCH (09:42)
[2017-12-16] MEDS: METOPROLOL TARTRATE 100 MG TAB PO SCH (09:42)
[2017-12-16] MEDS: LISINOPRIL 20 MG TAB PO SCH (09:43)
[2017-12-16] MEDS: BUDESONIDE-FORMOTEROL 80/4.5 MCG INHALER INH SCH (09:47)
--- NOTE | 2017-12-16 12:06 | MA ---
cc: Enrique Foreman MD PROCEDURES PERFORMED: Right heart catheterization, left heart catheterization, left ventriculography, coronary angiography. INDICATION: Non-STEMI, congestive heart failure, new-onset cardiac symptoms of chest pain and severe dyspnea at rest, unstable angina. [place] Cardiovascular Society class 4 angina. [place] Heart Association class 4 congestive heart failure. Hypertension, tobacco use, hypoxia, ischemic EKG changes. Patient was brought to the cardiac catheterization laboratory and prepped and draped in usual sterile fashion; 10 mL 1% lidocaine was used to locally anesthetize the common femoral artery. A 4 Tristanian sheath placed in the right common femoral artery, 6 Tristanian sheath placed in the right common femoral vein. Right heart catheterization was performed first with the following findings; the pulmonary capillary wedge pressure was 32/34-25, PA pressure 59/26-42, RV pressure 61/8-14, RA pressure 18/15/12. The cardiac output by Nichole is 5.5 L/minute. Cardiac index by Nichole is 2.9 L/m2 per minute. SVR is 1820 dynes. The sats on 4 L nasal cannula; femoral artery sat was 98%, PA sat 74.7%, RA sat 74.7%. Left heart catheterization was then performed with a 4 Tristanian JR4, JL4 catheter. Note, there was significant fibrocalcification seen in the distal aorta and the common iliac. I had to use the 4 Tristanian JR4 diagnostic catheter to steer the 0.035 J-tip wire at the aortic bifurcation. All catheter exchanges were thereafter done over the exchange wire. It showed the following findings; LV pressures 230/19-22. The ejection fraction is 70%. The right coronary artery is dominant. There is mild diffuse disease in the mid segment up to 20% angiographically. The right PDA has an ostial 40% stenosis. Right LEE ANN has no significant disease. The left main coronary artery has no significant disease angiographically. The left circumflex vessel has a proximal 40% to 50% stenosis, gives off a large obtuse marginal vessel in the mid AV groove with mild diffuse disease in mid to distal segment up to 20% to 30% angiographically. The LAD is transapical and has a long 50% stenosis at the bifurcation with the first diagonal artery. First diagonal artery is a medium size vessel, reference vessel diameter of probably 2.5 with an ostial 75% stenosis. There is a 45-degree angulation off the LAD. The LAD is transapical. Also note, the LAD has a mid to distal 50% to 60% stenosis. CONCLUSION: 1. Non-STEMI. Culprit 75% ostial first diagonal artery and also more than likely due to extremely high demand and hypoxia from hypertension and pneumonia. Due to the 45-degree angulation off the LAD with disease in the mid LAD, would definitely prefer to treat this medically. The patient has angina with shortness of breath refractory to optimal medical therapy, can consider a high-risk PCI of this lesion. 2. Otherwise, mild to moderate 3-vessel coronary disease in right-dominant system. 3. Hyperdynamic LV systolic function, ejection fraction 70%. 4. Elevated pulmonary capillary wedge pressure with moderate to severe pulmonary hypertension and moderate to severe increased left ventricular end-diastolic pressure as detailed above. Note, the patient was given 40 of IV Lasix in the cath lab nurse. Will continue Lasix for 20 IV b.i.d. Follow up daily BNP, BMP, magnesium. Continue aspirin. Continue Lipitor 40. Continue beta chris and lisinopril. Strongly recommend smoking cessation. MD TRISHA Springer/TEJAS , 10:43 AM , 03:35 PM
[2017-12-16 12:07] VITALS: BP 118/56; PULSE 68; RESP 17; TEMP 98.2; O2SAT 97
[2017-12-16] MEDS ORDERED: ATOR40TA16 PO (12:27)
[2017-12-16] MEDS ORDERED: AMLO10TA2 PO (12:27)
[2017-12-16] MEDS ORDERED: CLON.5 PO (12:27)
[2017-12-16] MEDS ORDERED: Budeson-Formot 80-4.5 Mcg Inh INH (12:27)
[2017-12-16] MEDS ORDERED: HYDR-3516 PO (12:27)
[2017-12-16] MEDS ORDERED: PRED20 PO (12:27)
[2017-12-16] MEDS ORDERED: LEVA750T9 PO (12:27)
--- NOTE | 2017-12-16 20:09 | HHI.DS ---
Discharge Summary Admission Date Dec 12, 2017 at 16:54 Discharge Date: Dec 16, 2017 Admitting Diagnosis Pneumonia, hypoxia, accelerated hypertension (1) Unstable angina ICD Code: I20.0 - Unstable angina (2) Pneumonia ICD Code: J18.9 - Pneumonia, unspecified organism Status: Acute Procedures Cardiac catheterization. CONCLUSION: 1. Non-STEMI. Culprit 75% ostial first diagonal artery and also more than likely due to extremely high demand and hypoxia from hypertension and pneumonia. Due to the 45-degree angulation off the LAD with disease in the mid LAD, would definitely prefer to treat this medically. The patient has angina with shortness of breath refractory to optimal medical therapy, can consider a high-risk PCI of this lesion. 2. Otherwise, mild to moderate 3-vessel coronary disease in right-dominant system. 3. Hyperdynamic LV systolic function, ejection fraction 70%. 4. Elevated pulmonary capillary wedge pressure with moderate to severe pulmonary hypertension and moderate to severe increased left ventricular end-diastolic pressure as detailed above. Note, the patient was given 40 of IV Lasix in the laboratory monitor. Will continue Lasix for 20 IV b.i.d. Follow up daily BNP, BMP, magnesium. Continue aspirin. Continue Lipitor 40. Continue beta chris and lisinopril. Strongly recommend smoking cessation. Brief History - From Admission 62-year-old white female being admitted for acute hypoxic respiratory failure and suspected unstable angina. Patient was in her usual state of health until she woke up this morning in pain over her left rib cage in her left back. She reported that the pain would worsen with deep inspiration and was at max intensity and thus she decided come to the emergency department. She denies any jennifer coughing, cyanosis, nausea, vomiting. In the ER the patient was noted to be hypoxic around 89% was found to be very hypertensive with blood pressures greater than 200/100. Initial EKG was obtained which independently reviewed it shows no ST segment changes concerning for ischemia or infarction. Patient did receive 1 round of nitroglycerin which brought her pressures down substantially. CT chest was performed which showed no emboli but showed a lingular infiltrate in the left lung. Patient was started on antibiotics. However later in the course of her management the patient developed sudden onset squeezing sensation in her chest which got her very frightened. Repeat EKG was performed which shows mild new onset ST segment depression in leads 4 through 6 based upon my personal interpretation. CBC/BMP: 12/14/17 0412 12/14/17 0412 Significant Findings Laboratory Tests Test 12/14/17 04:12 12/15/17 18:47 Red Blood Count 3.69 MIL/MM3 (4.00-5.30) Mean Corpuscular Volume 100.8 FL (80.0-100.0) Mean Corpuscular Hemoglobin 34.1 PG (27.0-34.0) Neutrophils (%) (Auto) 91.7 % (16.0-70.0) Lymphocytes (%) (Auto) 4.0 % (9.0-44.0) Neutrophils # (Auto) 9.0 TH/MM3 (1.8-7.7) Lymphocytes # (Auto) 0.4 TH/MM3 (1.0-4.8) Blood Urea Nitrogen 35 MG/DL (7-18) Creatinine 1.28 MG/DL (0.50-1.00) Random Glucose 135 MG/DL (74-106) Estimat Glomerular Filtration Rate 42 ML/MIN (>89) B-Type Natriuretic Peptide 407 PG/ML (0-100) Imaging Last Impressions CT Angiography 12/12/17 1421 Signed Impressions: Service Date/Time: December 16:03 - CONCLUSION: Bilobed elongated infiltrate within the lingula most likely from an area of rounded pneumonia. Due to the soft tissue and spiculated margin followup noncontrast chest CT recommended in one month. Small amounts of air space disease in both lung bases. No evidence of pulmonary embolism. Jorge Mccarthy MD Chest X-Ray 12/12/17 1311 Signed Impressions: Service Date/Time: December 13:46 - CONCLUSION: Normal examination. Diffuse widespread interstitial lung disease Jorge Mccarthy MD PE at Discharge GENERAL: Alert, NAD. SKIN: Warm and dry. HEAD: Normocephalic. EYES: No scleral icterus. No injection or drainage. NECK: Supple, trachea midline. No JVD or lymphadenopathy. CARDIOVASCULAR: Regular rate and rhythm without murmurs, gallops, or rubs. RESPIRATORY: Breath sounds equal bilaterally. No accessory muscle use. GASTROINTESTINAL: Abdomen soft, non-tender, nondistended. MUSCULOSKELETAL: No cyanosis, or edema. BACK: Nontender without obvious deformity. No CVA tenderness. Pt update on day of discharge Patient is doing well. No acute concerns. Doing well on nasal cannula. Hospital Course Ms. Estrada is a 62-year-old female with a history of COPD who presented to the emergency department on 12/12/2017 due to shortness of breath. Patient was admitted for acute hypoxic respiratory failure as well as suspected unstable angina. CT PE study shows no pulmonary embolism. Cardiology was consulted and patient underwent cardiac catheterization. -Acute hypoxic respiratory failure -Probable COPD exacerbation -Pneumonia -Continue ceftriaxone 2 g every 24 hours and continue Levaquin 750 mg p.o. daily in the ICU. - Will continue Levaquin upon discharge. -We will switch IV solu-medrol to PO Prednisone 20mg BID -Continue Symbicort. DuoNeb scheduled and as needed. -Supplemental oxygen to keep O2 saturation above 90%. Has access to O2 at home. -Unstable angina -Hypertension -Patient underwent cardiac catheterization on 12/13/2017. -Continue aspirin 81 mg, atorvastatin 40 mg, lisinopril 20 mg, metoprolol 100 mg twice daily. -Discontinue IV Lasix and start torsemide 10 mg daily. -Continue nifedipine 60 mg daily. -Alcohol and Tobacco abuse - Anxiety - Will continue CIWA protocol. Clonazepam for anxiety. Full code. Lovenox. Pt Condition on Discharge: Good Discharge Disposition: Discharge Home Discharge Time: > 30 minutes Discharge Instructions DIET: Follow Instructions for: Heart Healthy Diet Activities you can perform: Regular-No Restrictions Follow up Referrals: PCP Follow-up - 1 Week PCP Follow-up - 1 Week New Medications: Amlodipine (Amlodipine) 10 Mg Tab 10 MG PO DAILY for Blood Pressure Management, #30 TAB 11 Refills Atorvastatin (Atorvastatin) 40 Mg Tab 40 MG PO HS for Cholesterol Management, #90 TAB 3 Refills Clonazepam (Klonopin) 0.5 Mg Tab 0.5 MG PO Q8HR PRN for MODERATE TO SEVERE ANXIETY, #15 TAB Hydrocodone/Acetaminophen (Hydrocodone-Acetamin 5-325 mg) 5 Mg-325 Mg Tablet 1 TAB PO Q6HR PRN for pain, #20 TAB Levofloxacin (Levaquin) 750 Mg Tablet 750 MG PO DAILY for Infection, #5 TAB Prednisone (Prednisone) 20 Mg Tab 20 MG PO BID for Inflammation, #10 TAB [Budeson-Formot 80-4.5 Mcg Inh] () 60 PUFF AERO 1 PUFF INH BID for COPD for 30 Days, CAN Continued Medications: Metoprolol Tartrate (Metoprolol Tartrate) 100 Mg Tab 100 MG PO BID, #60 TAB 0 Refills Discontinued Medications: Lisinopril (Lisinopril) 20 Mg Tab 20 MG PO DAILY, #30 TAB 0 Refills Yokasta Graff DO Dec 16, 2017 20:09
== END 2017-12-16 14:18 | disposition home or self-care (01) | DRG 280 ==
LOC: PHED 13:03 → PHEDA 16:54 → HIMW 21:00 → N04B 12-15 22:24
PROVIDERS: ADMIT Hospitalist; ATTEND Hospitalist
PROC: B2151ZZ Fluoroscopy of Left Heart using Low Osmolar Contrast (ICD-10-PCS; 2017-12-13)
PROC: B2111ZZ Fluoroscopy of Multiple Coronary Arteries using Low Osmolar Contrast (ICD-10-PCS; 2017-12-13)
PROC: 4A023N8 Measurement of Cardiac Sampling and Pressure, Bilateral, Percutaneous Approach (ICD-10-PCS; principal; 2017-12-13 12:30)
DX: I21.4 Non-ST elevation (NSTEMI) myocardial infarction (principal); J18.9 Pneumonia, unspecified organism; J96.01 Acute respiratory failure with hypoxia; I11.0 Hypertensive heart disease with heart failure; I50.9 Heart failure, unspecified; I27.20 Pulmonary hypertension, unspecified; J44.0 Chronic obstructive pulmonary disease with (acute) lower respiratory infection; J44.1 Chronic obstructive pulmonary disease with (acute) exacerbation; I25.110 Atherosclerotic heart disease of native coronary artery with unstable angina pectoris; F17.210 Nicotine dependence, cigarettes, uncomplicated; I16.0 Hypertensive urgency; F41.9 Anxiety disorder, unspecified; F32.9 Major depressive disorder, single episode, unspecified; F10.10 Alcohol abuse, uncomplicated; Z23 Encounter for immunization
CPT/HCPCS: 36600; 71046; 71275; 80048; 80061; 82550; 82805; 82810; 83605; 83735; 83880; 84443; 84484; 85025; 85610; 85730; 87040; 87641; 87804; 90686; 90732; 93005; 93460; 94640; 94664; 96365; 96366; 96375; 96376; C1769; C1893; J0360; J0696; J1650; J1885; J1940; J1956; J2060; J2270; J2405; J2920; J2930; J3010; J7030; J7512; J7644; Q2038; Q9967

== ENCOUNTER 2018-01-03 12:27 | Inpatient (IN) | payer SELFPAY ==
[2018-01-03] VITALS (10 sets, daily range): BP systolic 131–171; BP diastolic 62–83; PULSE 71–98; RESP 18–24; TEMP 97.8–98.7; O2SAT 90–95
[~2018-01-03] VITALS: Ht 172.7 cm; Wt 75.6 kg
[~2018-01-03 12:27] MED LIST changes: +AMLO10TA2 PO; +ATOR40TA16 PO; +Budeson-Formot 80-4.5 Mcg Inh INH; -CARD120T4 PO; +CLON.5 PO; -FLON0.053; +HYDR-3516 PO; +LEVA750T9 PO; -LORT5TAB PO; +METO100T PO; +PRED20 PO; -PRIN20TA2 PO; -PROT40TA PO; -RANI150 PO; -VENTAER INH
--- NOTE | 2018-01-03 14:14 | RADRPT ---
EXAM DATE/TIME: 01/03/2018 13:46 [facility] COMPARISON: CT PULMONARY ANGIOGRAM, December 12, 2017, 16:03. CHEST PA & LAT, December 12, 2017, 13:46. INDICATIONS : Short of breath. MEDICAL HISTORY : Hypertension. Myocardial infarction. SURGICAL HISTORY : Hysterectomy. colostomy, colon resection ENCOUNTER: Initial ACUITY: 1 day PAIN SCORE: 0/10 LOCATION: Bilateral chest FINDINGS: Lungs are hyperexpanded with diffuse interstitial prominence. Ill-defined airspace and interstitial o pacities in the lingula, progressed from prior exam. Patchy airspace disease in the lung bases slight ly more confluent laterally and posteriorly at the left lung base. Cardiomediastinal contours are sta ble. Remainder of exam is unchanged. CONCLUSION: 1. Progression of interstitial edema and ill-defined airspace disease in the lingula. Differential co nsiderations include pneumonia versus aspiration. 2. Patchy bibasilar airspace disease, slightly more confluent in the left lung base. This also appear s to have progressed since previous examination. Again, differential considerations include chronic a spiration or atypical infection. 3. Recommend followup to resolution to exclude malignancy. Esvin Dowd MD on January 03, 2018 at 13:56 Board Certified Radiologist. This report was verified electronically.
[2018-01-03] MEDS ORDERED: PIPERACIL-TAZO 4.5 GM PREMIX 100 ML IV ONE (14:45)
[2018-01-03] MEDS ORDERED: AZITHROMYCIN INJ 500 MG in SODIUM CHLOR 0.9% 250 ML INJ 250 ML IV ONE (14:45)
--- NOTE | 2018-01-03 15:01 | PD ---
HPI Chief Complaint: Medical Clearance Time Seen by Provider: 14:13 Travel History International Travel<30 days: No Contact w/Intl Traveler<30days: No Traveled to known affect area: No History of Present Illness HPI 62y female presents emergency department, reluctantly, at the request of her primary care physician, Dr. Gonzales and Ms. Cordoba, [facility] for evaluation of persistent shortness of breath, hypoxemia, cough, and congestion. Says that she has also felt feverish but does not actually quantify the number. Patient says he was at her primary care physician as a follow-up for hospital visit in the beginning of this month where she was diagnosed with pneumonia and unstable angina. She has not been able to follow up with pulmonology or cardiology because of insurance issues, according to her. Says she has been using her medications regularly which include an albuterol inhaler but still feel short of breath. Says her cough is nonproductive and feels like it is "sticking" in her chest. She denies actual chest pain. Denies abdominal pain, leg pain. Patient continues to smoke daily. PFSH Past Medical History Asthma: No Blood Disorders: No Anxiety: Yes Depression: No Heart Rhythm Problems: No Cancer: No Cardiovascular Problems: Yes High Cholesterol: No Chemotherapy: No Chest Pain: No Congestive Heart Failure: No COPD: Yes Diminished Hearing: No Endocrine: No Gastrointestinal Disorders: Yes GERD: No Glaucoma: No Genitourinary: No Hepatitis: No Hiatal Hernia: No Hypertension: Yes Immune Disorder: No Neurologic: No Psychiatric: Yes Reproductive: No Respiratory: Yes Myocardial Infarction: No Radiation Therapy: No Sleep Apnea: No Ulcer: No ?: Not Past Surgical History Abdominal Surgery: Yes (COLOSTOMY REVIRSAL/ BOWEL RESCETION/) AICD: No Appendectomy: No Arteriovenous Shunt: No Cholecystectomy: No Genitourinary Surgery: Yes (Colon disection, prior colostomy) Gynecologic Surgery: Yes (Total hysterectomy 1984) Hysterectomy: Yes Insulin Pump: No Joint Replacement: No Pacemaker: No Other Surgery: Yes Social History Alcohol Use: Yes (QUIT 12/12/17 ) Tobacco Use: No (QUIT 12/12/17 ) Substance Use: No Allergies-Medications (Allergen,Severity, Reaction): Coded Allergies: Sulfa (Sulfonamide Antibiotics) (Unverified Allergy, Mild, HIVES and sob, 01/03/18) Reported Meds & Prescriptions Reported Meds & Active Scripts Active Amlodipine (Amlodipine Besylate) 10 Mg Tab 10 Mg PO DAILY [Budeson-Formot 80-4.5 Mcg Inh] 60 PUFF Aero 1 Puff INH BID 30 Days Prednisone 20 Mg Tab 20 Mg PO BID Klonopin (Clonazepam) 0.5 Mg Tab 0.5 Mg PO Q8HR PRN Hydrocodone-Acetamin 5-325 mg (Hydrocodone/Acetaminophen) 5 Mg-325 Mg Tablet 1 Tab PO Q6HR PRN Atorvastatin (Atorvastatin Calcium) 40 Mg Tab 40 Mg PO HS Levaquin (Levofloxacin) 750 Mg Tablet 750 Mg PO DAILY Reported Metoprolol Tartrate 100 Mg Tab 100 Mg PO BID Review of Systems Except as stated in HPI: all other systems reviewed are Neg Physical Exam Narrative GENERAL: Well-developed, well-nourished, agitated SKIN: Focused skin assessment warm/dry. HEAD: Atraumatic. Normocephalic. EYES: Pupils equal and round. No scleral icterus. No injection or drainage. ENT: No nasal bleeding or discharge. Mucous membranes pink and moist. NECK: Trachea midline. No JVD. No lymphadenopathy CARDIOVASCULAR: Regular rate and rhythm. No murmur appreciated. RESPIRATORY: No accessory muscle use. Bilateral lower lobes quiet, scant rhonchi GASTROINTESTINAL: Abdomen soft, non-tender, nondistended. No CVA tenderness MUSCULOSKELETAL: No obvious deformities. No clubbing. No cyanosis. No edema. Homans sign negative NEUROLOGICAL: Awake and alert. No obvious cranial nerve deficits. Motor grossly within normal limits. Normal speech. PSYCHIATRIC: Appropriate mood and affect; insight and judgment normal. Data Data Last Documented VS Vital Signs Date Time Temp Pulse Resp B/P (MAP) Pulse Ox O2 Delivery O2 Flow Rate FiO2 01/03/18 14:32 92 Nasal Cannula 3.00 01/03/18 14:32 76 18 01/03/18 14:30 151/64 (93) 01/03/18 12:35 98.7 Orders Orders Complete Blood Count With Diff (01/03/18 13:17) Chest, Pa & Lat (01/03/18 13:17) Electrocardiogram (01/03/18 14:27) B-Type Natriuretic Peptide (01/03/18 14:27) Ckmb (Isoenzyme) Profile (01/03/18 14:27) Magnesium (Mg) (01/03/18 14:27) Prothrombin Time / Inr (Pt) (01/03/18 14:27) Act Partial Throm Time (Ptt) (01/03/18 14:27) Troponin I (01/03/18 14:27) Ecg Monitoring (01/03/18 14:27) Bilateral Bp Monitoring (01/03/18 14:27) Iv Access Insert/Monitor (01/03/18 14:27) Oximetry (01/03/18 14:27) Oxygen Administration (01/03/18 14:27) Influenzae A/B Antigen (01/03/18 14:27) Blood Culture (01/03/18 14:27) Sodium Chloride 0.9% Flush (Ns Flush) (01/03/18 14:30) Lactic Acid Sepsis Protocol (01/03/18 14:27) Piperacil-Tazo 4.5 Gm Premix (Zosyn 4.5 (01/03/18 14:45) Azithromycin Inj (Zithromax Inj) (01/03/18 14:45) Ct Pulmonary Angiogram (01/03/18 ) Comprehensive Metabolic Panel (01/03/18 14:47) Iohexol 350 Inj (Omnipaque 350 Inj) (01/03/18 17:00) Pantoprazole Inj (Protonix Inj) (01/03/18 18:00) Red Blood Cells (Rbc) (01/03/18 17:57) Blood Product Administration (01/03/18 17:57) Sodium Chlor 0.9% 250 Ml Inj (Ns 250 Ml (01/03/18 18:00) Albuterol-Ipratropium Neb (Duoneb Neb) (01/03/18 18:00) Type And Screen (01/03/18 17:57) Methylprednisolone So Succ Inj (Solumedr (01/03/18 18:15) Admit Order (Ed Use Only) (01/03/18 18:16) Labs Laboratory Tests Test 01/03/18 14:47 White Blood Count 5.3 TH/MM3 Red Blood Count 2.48 MIL/MM3 Hemoglobin 7.9 GM/DL Hematocrit 23.5 % Mean Corpuscular Volume 94.9 FL Mean Corpuscular Hemoglobin 31.7 PG Mean Corpuscular Hemoglobin Concent 33.4 % Red Cell Distribution Width 14.9 % Platelet Count 329 TH/MM3 Mean Platelet Volume 8.6 FL Neutrophils (%) (Auto) 71.3 % Lymphocytes (%) (Auto) 14.1 % Monocytes (%) (Auto) 12.8 % Eosinophils (%) (Auto) 1.3 % Basophils (%) (Auto) 0.5 % Neutrophils # (Auto) 3.8 TH/MM3 Lymphocytes # (Auto) 0.8 TH/MM3 Monocytes # (Auto) 0.7 TH/MM3 Eosinophils # (Auto) 0.1 TH/MM3 Basophils # (Auto) 0.0 TH/MM3 CBC Comment DIFF FINAL Differential Comment Prothrombin Time 10.1 SEC Prothromb Time International Ratio 1.0 RATIO Activated Partial Thromboplast Time 27.5 SEC Blood Urea Nitrogen 12 MG/DL Creatinine 0.88 MG/DL Random Glucose 86 MG/DL Total Protein 7.2 GM/DL Albumin 2.4 GM/DL Calcium Level 8.7 MG/DL Magnesium Level 1.7 MG/DL Alkaline Phosphatase 94 U/L Aspartate Amino Transf (AST/SGOT) 10 U/L Alanine Aminotransferase (ALT/SGPT) 12 U/L Total Bilirubin 0.5 MG/DL Sodium Level 136 MEQ/L Potassium Level 4.6 MEQ/L Chloride Level 100 MEQ/L Carbon Dioxide Level 29.1 MEQ/L Anion Gap 7 MEQ/L Estimat Glomerular Filtration Rate 65 ML/MIN Lactic Acid Level 0.7 mmol/L Total Creatine Kinase 31 U/L Troponin I LESS THAN 0.02 NG/ML B-Type Natriuretic Peptide 242 PG/ML MDM Medical Decision Making Medical Screen Exam Complete: Yes Emergency Medical Condition: Yes Differential Diagnosis Pneumonia, bronchitis, upper respiratory infection, sepsis Narrative Course 62-year-old female with a history of COPD and CAD presents emergency department evaluation of hypoxia and shortness of breath at the request of her primary care physician. Says she was at her doctor's office today and found that her CO2 was in the high 80s. Patient was also symptomatic. Vital Signs Date Time Temp Pulse Resp B/P (MAP) Pulse Ox O2 Delivery O2 Flow Rate FiO2 01/03/18 14:32 92 Nasal Cannula 3.00 01/03/18 14:32 76 18 92 Nasal Cannula 3.00 01/03/18 14:26 76 18 01/03/18 12:35 98.7 71 24 137/66 (89) 90 Pt placed on 3LPM with improvement in SaO2 to 92-94% After review of the EMR, Pt was here for hypoxia with respiratory failure 2017 and was diagnosed with severe pulmonary hypertension, mild to moderate three-vessel CAD, and apparently had an STEMI likely as a result of PNA, HTN, and hypoxia. She was advised by the revenue integrity analyst to continue Lasix, ASA, Lipitor and her blood pressure medications as an outpatient. I spoke with my attending about this patient. She recommended coverage for atypical pneumonia. In addition, after reviewing the chest x-ray in comparison with a CT angiography, my attending recommended repeat CT angiogram as patient continues to be short of breath. Positive Hemoccult, melanotic stool. CBC & BMP Diagram 01/03/18 14:47 Total Protein 7.2, Albumin 2.4 L, Calcium Level 8.7, Magnesium Level 1.7, Alkaline Phosphatase 94, Aspartate Amino Transf (AST/SGOT) 10 L, Alanine Aminotransferase (ALT/SGPT) 12, Total Bilirubin 0.5 Cardiac enzymes negative, BNP 242. There is a significant drop of hemoglobin hematocrit from the December 14 hospital visit. Because of patient's cardiac history ordered 1 unit PRBCs. Duo nebs 2 ordered after re-evaluation as she was short of breath. Protonix for anemia, melena, positive occult stool, unknown source. Cefepime and azithromycin for PNA, possibly atypical. Duoneb and solumedrol for SOB. Type and cross 1U PRBCs for anemia, h/p CAD. Patient will be admitted for pneumonia with associated hypoxia and shortness of breath. In addition she may have a compounding symptomatic anemia. HemaPrompt Point of Care Internal Pos. & Neg. Controls: Passed Fecal Specimen Occult Blood: Positive (melena) Diagnosis Primary Impression: CAD (coronary artery disease) Qualified Codes: I25.10 - Atherosclerotic heart disease of [place] coronary artery without angina pectoris Additional Impressions: Symptomatic anemia Pneumonia Qualified Codes: J18.1 - Lobar pneumonia, unspecified organism Admitting Information Admitting Physician Requests: Admit Condition: Stable Floresita Arevalo Jan 03, 2018 15:01
[2018-01-03 15:46] LABS: AUTOMATED NEUTROPHIL # 3.8 TH/MM3 (1.8-7.7); BASOPHIL % 0.5 % (0.0-2.0); EOSINOPHIL # 0.1 TH/MM3 (0-0.4); EOSINOPHIL % 1.3 % (0.0-4.0); HEMATOCRIT 23.5 % (35.0-46.0); HEMOGLOBIN 7.9 GM/DL (11.6-15.3); LYMPH % 14.1 % (9.0-44.0); LYMPHOCYTE # 0.8 TH/MM3 (1.0-4.8); MEAN CELL VOLUME 94.9 FL (80.0-100.0); MEAN CORPUSCULAR HEMOGLOBIN 31.7 PG (27.0-34.0); MEAN CORPUSCULAR HGB CONC 33.4 % (32.0-36.0); MEAN PLATELET VOLUME 8.6 FL (7.0-11.0); MONO % 12.8 % (0.0-8.0); MONOCYTE # 0.7 TH/MM3 (0-0.9); NEUT % 71.3 % (16.0-70.0); PLATELET COUNT 329 TH/MM3 (150-450); RED BLOOD COUNT 2.48 MIL/MM3 (4.00-5.30); RED CELL DISTRIBUTION WIDTH 14.9 % (11.6-17.2); WHITE BLOOD COUNT 5.3 TH/MM3 (4.0-11.0)
[2018-01-03 15:49] LABS: PROTHROMBIN TIME - PATIENT 10.1 SEC (9.8-11.6)
[2018-01-03 15:55] LABS: MAGNESIUM 1.7 MG/DL (1.5-2.5)
[2018-01-03 16:03] LABS: ALBUMIN 2.4 GM/DL (3.4-5.0); AST (GOT) 10 U/L (15-37); BLOOD UREA NITROGEN 12 MG/DL (7-18); CREATININE 0.88 MG/DL (0.50-1.00); GLOMERULAR FILTRATION RATE 65 ML/MIN (>89); GLUCOSE,RANDOM 86 MG/DL (74-106); TROPONIN I LESS THAN 0.02 NG/ML (0.02-0.05)
[2018-01-03 16:05] LABS: ALKALINE PHOSPHATASE 94 U/L (45-117); TOTAL BILIRUBIN ADULT 0.5 MG/DL (0.2-1.0); TOTAL PROTEIN 7.2 GM/DL (6.4-8.2)
[2018-01-03 16:15] LABS: ALT (GPT) 12 U/L (10-53); BICARBONATE 29.1 MEQ/L (21.0-32.0); CALCIUM 8.7 MG/DL (8.5-10.1); CHLORIDE 100 MEQ/L (98-107); SODIUM (NA) 136 MEQ/L (136-145)
[2018-01-03] MEDS ORDERED: IOHEXOL 350 MG/ML 10 ML VIAL (for RAD DIAG) IVCONTRAST ONE (17:00)
--- NOTE | 2018-01-03 17:44 | RADRPT ---
EXAM DATE/TIME: 01/03/2018 16:57 [facility] COMPARISON: CT PULMONARY ANGIOGRAM, December 12, 2017, 16:03. INDICATIONS : Shortness of breath. IV CONTRAST: 75 cc Omnipaque 350 (iohexol) IV RADIATION DOSE: 14.62 CTDIvol (mGy) MEDICAL HISTORY : Hypertension. Chronic obstructive pulmonary disease. SURGICAL HISTORY : None. ENCOUNTER: Initial ACUITY: 2 days PAIN SCALE: 3/10 LOCATION: Bilateral chest TECHNIQUE: Volumetric scanning of the chest was performed using a pulmonary embolism protocol MIP images were re constructed. Using automated exposure control and adjustment of the mA and/or kV according to patien t size, radiation dose was kept as low as reasonably achievable to obtain optimal diagnostic quality images. DICOM format image data is available electronically for review and comparison. Follow-up recommendations for detected pulmonary nodules are based at a minimum on nodule size and pa tient risk factors according to Fleischner Society Guidelines. FINDINGS: Mild interstitial edema is present. There is increased consolidative changes laterally in the left l jeff. Minimal parenchymal changes are seen in the right lung anteriorly. There is no axillary adenopathy. There is no mediastinal adenopathy. There is no central pulmonary emboli. The moderate coronary calcifications are seen especially in the LAD. Scattered low-density lesions are seen in the liver, the largest measuring 1.8 cm and the left lobe. There is 2.4 cm left adrenal mass that does not meet the criteria for adenoma. Cystic mass measuring 1.2 cm midportion left kidney incompletely evaluated. CONCLUSION: 1. Increasing size consolidative changes left lung suspicious for inflammatory process 2. Abnormal left adrenal gland. Vikram Giraldo MD FACR on January 03, 2018 at 17:38 Board Certified Radiologist. This report was verified electronically.
[2018-01-03] MEDS ORDERED: SODIUM CHLOR 0.9% 250 ML INJ 250 ML IV ONE (18:00)
[2018-01-03] MEDS ORDERED: PANTOPRAZOLE SODIUM 40 MG VIAL IV PUSH ONE (18:00)
[2018-01-03] MEDS: RESP: ALBUTEROL 2.5 MG/IPRATROPIUM 0.5 MG NEB (SCH) INH (18:04)
--- NOTE | 2018-01-03 18:09 | PD ---
Physical Exam Narrative GENERAL: 62 y/o female who appears ill SKIN: Focused skin assessment warm/dry. HEAD: Atraumatic. Normocephalic. EYES: Pupils equal and round. No scleral icterus. No injection or drainage. ENT: No nasal bleeding or discharge. Mucous membranes pink and moist. NECK: Trachea midline. CARDIOVASCULAR: Regular rate and rhythm. RESPIRATORY: No accessory muscle use. Increased respiratory effort NEUROLOGICAL: Awake and alert. Motor grossly within normal limits. Normal speech. Data Data Last Documented VS Vital Signs Date Time Temp Pulse Resp B/P (MAP) Pulse Ox O2 Delivery O2 Flow Rate FiO2 01/03/18 14:32 92 Nasal Cannula 3.00 01/03/18 14:32 76 18 01/03/18 14:30 151/64 (93) 01/03/18 12:35 98.7 Orders Orders Complete Blood Count With Diff (01/03/18 13:17) Chest, Pa & Lat (01/03/18 13:17) Electrocardiogram (01/03/18 14:27) B-Type Natriuretic Peptide (01/03/18 14:27) Ckmb (Isoenzyme) Profile (01/03/18 14:27) Magnesium (Mg) (01/03/18 14:27) Prothrombin Time / Inr (Pt) (01/03/18 14:27) Act Partial Throm Time (Ptt) (01/03/18 14:27) Troponin I (01/03/18 14:27) Ecg Monitoring (01/03/18 14:27) Bilateral Bp Monitoring (01/03/18 14:27) Iv Access Insert/Monitor (01/03/18 14:27) Oximetry (01/03/18 14:27) Oxygen Administration (01/03/18 14:27) Influenzae A/B Antigen (01/03/18 14:27) Blood Culture (01/03/18 14:27) Sodium Chloride 0.9% Flush (Ns Flush) (01/03/18 14:30) Lactic Acid Sepsis Protocol (01/03/18 14:27) Piperacil-Tazo 4.5 Gm Premix (Zosyn 4.5 (01/03/18 14:45) Azithromycin Inj (Zithromax Inj) (01/03/18 14:45) Ct Pulmonary Angiogram (01/03/18 ) Comprehensive Metabolic Panel (01/03/18 14:47) Iohexol 350 Inj (Omnipaque 350 Inj) (01/03/18 17:00) Pantoprazole Inj (Protonix Inj) (01/03/18 18:00) Red Blood Cells (Rbc) (01/03/18 17:57) Blood Product Administration (01/03/18 17:57) Sodium Chlor 0.9% 250 Ml Inj (Ns 250 Ml (01/03/18 18:00) Albuterol-Ipratropium Neb (Duoneb Neb) (01/03/18 18:00) Type And Screen (01/03/18 17:57) Methylprednisolone So Succ Inj (Solumedr (01/03/18 18:15) Admit Order (Ed Use Only) (01/03/18 18:16) Labs Laboratory Tests Test 01/03/18 14:47 White Blood Count 5.3 TH/MM3 Red Blood Count 2.48 MIL/MM3 Hemoglobin 7.9 GM/DL Hematocrit 23.5 % Mean Corpuscular Volume 94.9 FL Mean Corpuscular Hemoglobin 31.7 PG Mean Corpuscular Hemoglobin Concent 33.4 % Red Cell Distribution Width 14.9 % Platelet Count 329 TH/MM3 Mean Platelet Volume 8.6 FL Neutrophils (%) (Auto) 71.3 % Lymphocytes (%) (Auto) 14.1 % Monocytes (%) (Auto) 12.8 % Eosinophils (%) (Auto) 1.3 % Basophils (%) (Auto) 0.5 % Neutrophils # (Auto) 3.8 TH/MM3 Lymphocytes # (Auto) 0.8 TH/MM3 Monocytes # (Auto) 0.7 TH/MM3 Eosinophils # (Auto) 0.1 TH/MM3 Basophils # (Auto) 0.0 TH/MM3 CBC Comment DIFF FINAL Differential Comment Prothrombin Time 10.1 SEC Prothromb Time International Ratio 1.0 RATIO Activated Partial Thromboplast Time 27.5 SEC Blood Urea Nitrogen 12 MG/DL Creatinine 0.88 MG/DL Random Glucose 86 MG/DL Total Protein 7.2 GM/DL Albumin 2.4 GM/DL Calcium Level 8.7 MG/DL Magnesium Level 1.7 MG/DL Alkaline Phosphatase 94 U/L Aspartate Amino Transf (AST/SGOT) 10 U/L Alanine Aminotransferase (ALT/SGPT) 12 U/L Total Bilirubin 0.5 MG/DL Sodium Level 136 MEQ/L Potassium Level 4.6 MEQ/L Chloride Level 100 MEQ/L Carbon Dioxide Level 29.1 MEQ/L Anion Gap 7 MEQ/L Estimat Glomerular Filtration Rate 65 ML/MIN Lactic Acid Level 0.7 mmol/L Total Creatine Kinase 31 U/L Troponin I LESS THAN 0.02 NG/ML B-Type Natriuretic Peptide 242 PG/ML MDM Supervised Visit with CLARISSE: Yes Interpretation(s) CBC & BMP Diagram 01/03/18 14:47 Total Protein 7.2, Albumin 2.4 L, Calcium Level 8.7, Magnesium Level 1.7, Alkaline Phosphatase 94, Aspartate Amino Transf (AST/SGOT) 10 L, Alanine Aminotransferase (ALT/SGPT) 12, Total Bilirubin 0.5 Last 24 hours Impressions Chest X-Ray 01/03/18 1317 Signed Impressions: Service Date/Time: Wednesday, January 03, 2018 13:46 - CONCLUSION: 1. Progression of interstitial edema and ill-defined airspace disease in the lingula. Differential considerations include pneumonia versus aspiration. 2. Patchy bibasilar airspace disease, slightly more confluent in the left lung base. This also appears to have progressed since previous examination. Again, differential considerations include chronic aspiration or atypical infection. 3. Recommend followup to resolution to exclude malignancy. Esvin Dowd MD Narrative Course I, Dr. zhong, have reviewed the advance practice practitioner's documentation and am in agreement, met with the patient face to face, made the diagnosis, and the medical decision making was done by me. *My assessment and Findings: 62-year-old female presents with shortness of breath. Findings show persistent pneumonia so will give hospital-acquired pneumonia coverage. She also concurrently has anemia and is guaiac positive with GI bleed. She will be given Protonix and started on the unit of replacement. She also has a COPD exacerbation will be given steroids and nebulizer treatment. She'll be monitored closely in the hospital given the above an oxygen requirement Critical Care Narrative Aggregate critical care time was 31 minutes. Time to perform other separately billable procedures was not included in the critical care time. My time did not include minutes spent treating any other patients simultaneously or on activities that did not directly contribute to the patient's treatment. The services I provided to this patient were to treat and/or prevent clinically significant deterioration that could result in: Respiratory failure, I provided critical care services requiring my management, as noted below: Chart data review, documentation time, medication orders and management, vital sign assessments/reviewing monitor data, ordering and reviewing lab tests, ordering and interpreting/reviewing x-rays and diagnostic studies, care of the patient and discussion of the patient with the admitting physicians. Physician Communication Physician Communication dr singletary agrees to admit Diagnosis Primary Impression: Pneumonia Qualified Codes: J18.1 - Lobar pneumonia, unspecified organism Additional Impressions: Symptomatic anemia GI bleed Qualified Codes: K92.2 - Gastrointestinal hemorrhage, unspecified COPD exacerbation Admitting Information Admitting Physician Requests: Admit Condition: Stable Lillian Zhong MD Jan 03, 2018 18:09
[2018-01-03] MEDS ORDERED: methylPREDNISolone SOD SUCC 125 MG/2 ML VIAL IV PUSH ONE (18:15)
--- NOTE | 2018-01-03 19:11 | HHI.HP ---
HPI Service [facility] Primary Care Physician Ayo Gonzales MD Admission Diagnosis PNA with hypoxia, symptomatic anemia Diagnoses: (1) PNA (pneumonia) Diagnosis: Principal (2) Hypoxia Diagnosis: Principal (3) COPD (chronic obstructive pulmonary disease) Diagnosis: Principal (4) Anemia Diagnosis: Principal Travel History International Travel<30 Days: No Contact w/Intl Traveler <30 Da: No Traveled to Known Affected Are: No History of Present Illness This is a 62-year-old female with a PMH of HTN, Hyperlipidemia, Anxiety and COPD who was sent to the ER by her PCP for further evaluation of hypoxia and SOB. Recent admit 12/12-12/16/17 for NSTEMI and PNA, CTA Pulm negative for PE at that time, however noted to have PNA, s/p Rocephin/Levaquin, s/p Cath w/ mild to moderate 3 vessel disease, recommendation for medical management. States she had been doing well after discharge until few days ago when she started to have SOB and subjective fever/chills. Denies chest pain, nausea, vomiting or diarrhea. On arrival, BP 137/66, HR 71, O2 sat 90% on RA, Afebrile. Hemoglobin 7.9, previously 12.6 on 12/14/17. Chemistry essentially unremarkable. Troponin negative. INR 1.0. CXR with progression of interstitial edema and airspace disease in the lingula, pneumonia versus aspiration. CTA Pulm negative for PE, increasing size of consolidative changes left lung suspicious for inflammatory process. S/p Zithro/Zosyn in ER. 1u pRBC ordered in ER for transfusion. Review of Systems Except as stated in HPI: all other systems reviewed are Neg ROS: 14 point review of systems otherwise negative. Past Family Social History Past Medical History PMH: HTN, Hyperlipidemia, Anxiety and COPD Past Surgical History PAST SURGICAL HISTORY: Colostomy with Reversal, Hysterectomy Allergies: Coded Allergies: Sulfa (Sulfonamide Antibiotics) (Unverified Allergy, Mild, HIVES and sob, 01/03/18) Family History PAST FAMILY HISTORY: Reviewed. No h/o DM or CAD Social History PAST SOCIAL HISTORY: History of alcohol and tobacco abuse, quit 12/12/17. Negative for drugs. Physical Exam Vital Signs Vital Signs Date Time Temp Pulse Resp B/P (MAP) Pulse Ox O2 Delivery O2 Flow Rate FiO2 01/03/18 18:48 94 24 171/72 (105) 93 Nasal Cannula 3.00 01/03/18 14:32 92 Nasal Cannula 3.00 01/03/18 14:32 76 18 92 Nasal Cannula 3.00 01/03/18 14:30 71 18 151/64 (93) 95 Nasal Cannula 3.00 01/03/18 14:26 76 18 01/03/18 12:35 98.7 71 24 137/66 (89) 90 Physical Exam PE: GENERAL: Pleasant middle-aged white female in no acute distress. HEENT: PERRLA, EOMI. No scleral icterus or conjunctival pallor. No lid lag or facial droop. CARDIOVASCULAR: Regular rate and rhythm. No obvious murmurs to auscultation. No chest tenderness to palpation. RESPIRATORY: +rhonchi, occasional wheezing. Breath sounds equal bilaterally. GASTROINTESTINAL: Abdomen soft, non-tender, nondistended. BS normal. MUSCULOSKELETAL: Extremities without clubbing, cyanosis, or edema. No obvious deformities. NEUROLOGICAL: Awake, alert and oriented x4. No focal neurologic deficits. Moving both upper and lower extremities spontaneously. Laboratory Laboratory Tests Test 01/03/18 14:47 White Blood Count 5.3 Red Blood Count 2.48 Hemoglobin 7.9 Hematocrit 23.5 Mean Corpuscular Volume 94.9 Mean Corpuscular Hemoglobin 31.7 Mean Corpuscular Hemoglobin Concent 33.4 Red Cell Distribution Width 14.9 Platelet Count 329 Mean Platelet Volume 8.6 Neutrophils (%) (Auto) 71.3 Lymphocytes (%) (Auto) 14.1 Monocytes (%) (Auto) 12.8 Eosinophils (%) (Auto) 1.3 Basophils (%) (Auto) 0.5 Neutrophils # (Auto) 3.8 Lymphocytes # (Auto) 0.8 Monocytes # (Auto) 0.7 Eosinophils # (Auto) 0.1 Basophils # (Auto) 0.0 CBC Comment DIFF FINAL Differential Comment Prothrombin Time 10.1 Prothromb Time International Ratio 1.0 Activated Partial Thromboplast Time 27.5 Blood Urea Nitrogen 12 Creatinine 0.88 Random Glucose 86 Total Protein 7.2 Albumin 2.4 Calcium Level 8.7 Magnesium Level 1.7 Alkaline Phosphatase 94 Aspartate Amino Transf (AST/SGOT) 10 Alanine Aminotransferase (ALT/SGPT) 12 Total Bilirubin 0.5 Sodium Level 136 Potassium Level 4.6 Chloride Level 100 Carbon Dioxide Level 29.1 Anion Gap 7 Estimat Glomerular Filtration Rate 65 Lactic Acid Level 0.7 Total Creatine Kinase 31 Troponin I LESS THAN 0.02 B-Type Natriuretic Peptide 242 Date/Time Source Procedure Growth Status 01/03/18 14:47 Blood Peripheral Aerobic Blood Culture Pending Received 01/03/18 14:47 Blood Peripheral Anaerobic Blood Culture Pending Received 01/03/18 14:47 Nasal Aspirate Influenza Types A,B Antigen (DOLORES) - Final NEGATIVE FOR FLU A AND B ANTIGEN.... Complete Result Diagram: 01/03/18 1447 01/03/18 1447 Caprini VTE Risk Assessment Caprini VTE Risk Assessment: Mod/High Risk (score >= 2) Caprini Risk Assessment Model Point Value = 1 Point Value = 2 Point Value = 3 Point Value = 5 Age 41-60 Minor surgery BMI > 25 kg/m2 Swollen legs Varicose veins or History of unexplained or recurrent spontaneous Oral contraceptives or hormone replacement Sepsis (< 1 month) Serious lung disease, including pneumonia (< 1 month) Abnormal pulmonary function Acute myocardial infarction Congestive heart failure (< 1 month) History of inflammatory bowel disease Medical patient at bed rest Age 61-74 Arthroscopic surgery Major open surgery (> 45 min) Laparoscopic surgery (> 45 min) Malignancy Confined to bed (> 72 hours) Immobilizing plaster cast Central venous access Age >= 75 History of VTE Family history of VTE Factor V Leiden Prothrombin [id number] Lupus anticoagulant Anticardiolipin antibodies Elevated serum homocysteine Heparin-induced thrombocytopenia Other congenital or acquired thrombophilia Stroke (< 1 month) Elective arthroplasty Hip, pelvis, or leg fracture Acute spinal cord injury (< 1 month) Prophylaxis Regimen Total Risk Factor Score Risk Level Prophylaxis Regimen 0-1 Low Early ambulation 2 Moderate Order ONE of the following: *Sequential Compression Device (SCD) *Heparin 5000 units SQ BID 3-4 Higher Order ONE of the following medications: *Heparin 5000 units SQ TID *Enoxaparin/Lovenox 40 mg SQ daily (WT < 150 kg, CrCl > 30 mL/min) *Enoxaparin/Lovenox 30 mg SQ daily (WT < 150 kg, CrCl > 10-29 mL/min) *Enoxaparin/Lovenox 30 mg SQ BID (WT < 150 kg, CrCl > 30 mL/min) AND/OR *Sequential Compression Device (SCD) 5 or more Highest Order ONE of the following medications: *Heparin 5000 units SQ TID (Preferred with Epidurals) *Enoxaparin/Lovenox 40 mg SQ daily (WT < 150 kg, CrCl > 30 mL/min) *Enoxaparin/Lovenox 30 mg SQ daily (WT < 150 kg, CrCl > 10-29 mL/min) *Enoxaparin/Lovenox 30 mg SQ BID (WT < 150 kg, CrCl > 30 mL/min) AND *Sequential Compression Device (SCD) Assessment and Plan Problem List: (1) PNA (pneumonia) ICD Code: J18.9 - Pneumonia, unspecified organism (2) Hypoxia ICD Code: R09.02 - Hypoxemia (3) COPD (chronic obstructive pulmonary disease) ICD Code: J44.9 - Chronic obstructive pulmonary disease, unspecified (4) Anemia ICD Code: D64.9 - Anemia, unspecified Assessment and Plan A/P: 1. PNA: CXR w/ progression of interstitial edema and airspace disease suspicious for pneumonia versus aspiration. CTA Pulm negative for PE, increasing size of consolidation, images reviewed by me. +fever/chills at home. Vanc/Zosyn, DuoNeb prn, Mucinex, check Sputum Cultures. 2. COPD: Chronic Respiratory Failure w/ Acute Exacerbation. Moderate-Severe. +wheezing. Solu-Medrol 40mg IV q6, DuoNeb prn, Symbicort bid, Mucinex bid. 3. Hypoxia: secondary to above, O2 sat 90% on RA upon arrival, currently 92-95 % on 2L NC, monitor O2 closely. 4. Anemia: Symptomatic. Likely contributing to SOB. Hgb 7.9, previously 12.6 on 12/14/17, no active bleeding noted. 1u pRBC ordered in ER for transfusion , repeat labs after transfusion. 5. DVT Prophylaxis: SCD/Teds 6. Social work for d/c planning as needed. 7. Case discussed at length w/ ER physician, labs/records/imaging reviewed by me. Physician Certification 2 Midnight Certification Type: Admission for Inpatient Services Order for Inpatient Services The services are ordered in accordance with Medicare regulations or non- Medicare payer requirements, as applicable. In the case of services not specified as inpatient-only, they are appropriately provided as inpatient services in accordance with the 2-midnight benchmark. Estimated LOS (days): 2 days is the estimated time the patient will need to remain in the hospital, assuming treatment plan goals are met and no additional complications. Post-Hospital Plan: Not yet determined Dayna Rahman MD Jan 03, 2018 19:11
[2018-01-03] MEDS ORDERED: LACTULOSE SYRUP 20 GM/30 ML CUP PO PRN (19:15)
[2018-01-03] MEDS ORDERED: ONDANSETRON HCL 4 MG/2 ML VIAL IVP PRN (19:15)
[2018-01-03] MEDS ORDERED: Vancomycin Consult Pharmacy 1 EA OTHER SCH (19:15)
[2018-01-03] MEDS ORDERED: BISACODYL 10 MG SUPP RECTAL PRN (19:15)
[2018-01-03] MEDS ORDERED: MORPHINE SULFATE 2 MG/ML SYRINGE IV PUSH PRN (19:15)
[2018-01-03] MEDS ORDERED: SENNOSIDES 8.6 MG TAB PO PRN (19:15)
[2018-01-03] MEDS ORDERED: ACETAMINOPHEN 325 MG TAB PO PRN (19:15)
[2018-01-03] MEDS ORDERED: MAGNESIUM HYDROXIDE SUSP 30 ML CUP PO PRN (19:15)
[2018-01-03] MEDS ORDERED: RESP: ALBUTEROL 2.5 MG/IPRATROPIUM 0.5 MG NEB (PRN) NEB (19:15)
[2018-01-03] MEDS ORDERED: SODIUM CHLORIDE 0.9% FLUSH 10 ML FLUSH IV FLUSH PRN (19:15)
[2018-01-03] MEDS ORDERED: VANCOMYCIN INJ 2,000 MG in SODIUM CHLORID 0.9% 500 ML INJ 500 ML IV ONE (20:00)
[2018-01-03] MEDS ORDERED: PIPERACIL-TAZO 4.5 GM PREMIX 100 ML IV SCH (21:00)
[2018-01-03] MEDS: guaiFENesin E.R. 600 MG TAB PO SCH (21:00)
[2018-01-03] MEDS: SODIUM CHLORIDE 0.9% FLUSH 10 ML FLUSH IV FLUSH SCH (21:00)
[2018-01-03] MEDS: DOCUSATE SODIUM 50 MG/SENNA 8.6 MG TAB PO SCH (21:25)
[2018-01-03] MEDS: METOPROLOL TARTRATE 100 MG TAB PO SCH (21:25)
[2018-01-03] MEDS: ATORVASTATIN 40 MG TAB PO SCH (21:25)
[2018-01-03] MEDS: clonazePAM 0.5 MG TAB PO PRN (21:31)
[2018-01-03] MEDS: BUDESONIDE-FORMOTEROL 160/4.5 MCG INHALER INH SCH (22:13)
[2018-01-04] VITALS (7 sets, daily range): BP systolic 132–148; BP diastolic 61–67; PULSE 68–83; RESP 17–19; TEMP 97.3–98.6; O2SAT 90–96
[2018-01-04] MEDS: methylPREDNISolone SOD SUCC 40 MG/1 ML VIAL IV PUSH SCH ×4 (00:37→17:55)
[2018-01-04] MEDS: PIPERACIL-TAZO 4.5 GM PREMIX 100 ML IV SCH ×3 (05:58→17:56)
[2018-01-04 07:47] LABS: AUTOMATED NEUTROPHIL # 2.7 TH/MM3 (1.8-7.7); BASOPHIL % 0.2 % (0.0-2.0); HEMATOCRIT 26.5 % (35.0-46.0); HEMOGLOBIN 9.1 GM/DL (11.6-15.3); LYMPH % 12.7 % (9.0-44.0); LYMPHOCYTE # 0.4 TH/MM3 (1.0-4.8); MEAN CELL VOLUME 92.6 FL (80.0-100.0); MEAN CORPUSCULAR HEMOGLOBIN 31.7 PG (27.0-34.0); MEAN CORPUSCULAR HGB CONC 34.3 % (32.0-36.0); MEAN PLATELET VOLUME 8.4 FL (7.0-11.0); MONO % 2.3 % (0.0-8.0); MONOCYTE # 0.1 TH/MM3 (0-0.9); NEUT % 84.8 % (16.0-70.0); PLATELET COUNT 302 TH/MM3 (150-450); RED BLOOD COUNT 2.86 MIL/MM3 (4.00-5.30); RED CELL DISTRIBUTION WIDTH 16.4 % (11.6-17.2); WHITE BLOOD COUNT 3.2 TH/MM3 (4.0-11.0)
[2018-01-04 08:19] LABS: ALBUMIN 2.4 GM/DL (3.4-5.0); ALT (GPT) 10 U/L (10-53); AST (GOT) 6 U/L (15-37); BLOOD UREA NITROGEN 11 MG/DL (7-18); CALCIUM 8.6 MG/DL (8.5-10.1); CHLORIDE 101 MEQ/L (98-107); GLOMERULAR FILTRATION RATE 56 ML/MIN (>89); GLUCOSE,RANDOM 147 MG/DL (74-106); SODIUM (NA) 138 MEQ/L (136-145)
[2018-01-04 08:21] LABS: ALKALINE PHOSPHATASE 91 U/L (45-117); TOTAL BILIRUBIN ADULT 0.5 MG/DL (0.2-1.0); TOTAL PROTEIN 7.1 GM/DL (6.4-8.2)
[2018-01-04] MEDS: METOPROLOL TARTRATE 100 MG TAB PO SCH ×2 (08:43→21:27)
[2018-01-04] MEDS: DOCUSATE SODIUM 50 MG/SENNA 8.6 MG TAB PO SCH ×2 (08:44→21:27)
[2018-01-04] MEDS: guaiFENesin E.R. 600 MG TAB PO SCH ×2 (08:44→21:28)
[2018-01-04] MEDS: BUDESONIDE-FORMOTEROL 160/4.5 MCG INHALER INH SCH ×2 (08:47→21:28)
[2018-01-04] MEDS: SODIUM CHLORIDE 0.9% FLUSH 10 ML FLUSH IV FLUSH SCH ×2 (08:47→21:27)
[2018-01-04] MEDS: ACETAMINOPHEN/HYDROcodone 325 MG/5 MG TAB PO PRN ×3 (08:47→17:55)
[2018-01-04] MEDS ORDERED: HEPARIN SODIUM - SQ 10,000 UNITS/ML VIAL SQ SCH (09:00)
[2018-01-04] MEDS: RESP: ALBUTEROL 2.5 MG/IPRATROPIUM 0.5 MG NEB (SCH) NEB ×2 (14:43→20:48)
--- NOTE | 2018-01-04 15:40 | HHI.PR ---
Subjective Remarks 62-year-old female who was sent to the ER by her primary care when she presented with hypoxemia, saturations in the 80s. She has emphysema. She has a recent history of pneumonia. Objective Vitals Vital Signs Date Time Temp Pulse Resp B/P (MAP) Pulse Ox O2 Delivery O2 Flow Rate FiO2 01/04/18 12:00 98.6 70 18 146/66 (92) 90 01/04/18 08:00 98.5 78 19 148/67 (94) 94 01/04/18 04:20 97.7 68 18 134/61 (85) 94 01/03/18 23:33 98.0 98 18 131/62 92 01/03/18 23:30 98.0 98 18 131/62 (85) 92 01/03/18 21:00 98.4 97 18 146/65 (92) 91 01/03/18 20:22 01/03/18 20:21 94 Nasal Cannula 3.00 01/03/18 20:11 97.8 94 20 166/83 94 01/03/18 19:56 97.9 95 18 171/72 92 01/03/18 18:48 94 24 171/72 (105) 93 Nasal Cannula 3.00 I/O 01/03/18 01/03/18 01/03/18 01/04/18 01/04/18 01/04/18 07:00 15:00 23:00 07:00 15:00 23:00 Intake Total 1390 ml 357 ml Balance 1390 ml 357 ml Intake Oral 240 ml IV Total 700 ml 357 ml Packed Cells 400 ml Blood Product IV Normal Saline Flush 50 ml # Voids 2 # Bowel Movements 0 Result Diagram: 01/04/18 0628 01/04/18 0628 Objective Remarks GENERAL: Thin patient, cognitively intact, on oxygen SKIN: Warm and dry. HEAD: Normocephalic. EYES: No scleral icterus. No injection or drainage. NECK: Supple, trachea midline. No JVD or lymphadenopathy. CARDIOVASCULAR: Regular rate and rhythm without murmurs, gallops, or rubs. RESPIRATORY: Diminished breath sounds in bilateral bases, soft fine crackles in right base, no marked wheezing GASTROINTESTINAL: Abdomen soft, non-tender, nondistended. EXTREMITIES: No cyanosis, or edema. NEUROLOGICAL: Awake, alert, and oriented x 3. Non-focal. A/P Problem List: (1) PNA (pneumonia) ICD Code: J18.9 - Pneumonia, unspecified organism (2) Hypoxia ICD Code: R09.02 - Hypoxemia (3) COPD (chronic obstructive pulmonary disease) ICD Code: J44.9 - Chronic obstructive pulmonary disease, unspecified (4) Anemia ICD Code: D64.9 - Anemia, unspecified Assessment and Plan Pneumonia Consolidation versus ill-defined air space disease evident in the lingula CTA was negative for pulmonary embolism but showed increasing size of consolidation Fevers and chills at home plus hypoxemia when she presented to her primary care doctor Continue with IV vancomycin and IV Zosyn Follow up sputum cultures Emphysema Much of this presentation is due to CHF exacerbation Continue scheduled duo nebs, Solu-Medrol IV, Mucinex, budesonide Our goals should not be to get her oxygen into the high 90s. Due to COPD her baseline is likely closer to 90%, if not below. Continue oxygen use for now, will attempt to wean when clinically appropriate. Anemia Repeat hemoglobin was 9.1, appears stable DVT prophylaxis GIOs Parviz Gerard MD Jan 04, 2018 15:40
[2018-01-04] MEDS: VANCOMYCIN 1,000 MG/NS 250 ML IV SCH ×2 (16:17)
[2018-01-04] MEDS: SODIUM CHLORIDE 0.9% FLUSH 10 ML FLUSH IVF PRN (16:18)
--- NOTE | 2018-01-04 20:05 | EKG ---
Date Performed: 01/03/2018 Time Performed: 14:35:15 PTAGE: 62 years EKG: Sinus rhythm LEFT VENTRICULAR HYPERTROPHY AND ST-T CHANGE ABNORMAL ECG Since the PREVIOUS TRACING , no significant change noted PREVIOUS TRACIN12/13/2017 12.48 DOCTOR: Berta Husain Interpretating Date/Time 01/04/2018 20:03:32
[2018-01-04] MEDS: ATORVASTATIN 40 MG TAB PO SCH (21:27)
[2018-01-04] MEDS: clonazePAM 0.5 MG TAB PO PRN (21:30)
[2018-01-05] VITALS (8 sets, daily range): BP systolic 120–155; BP diastolic 56–70; PULSE 75–93; RESP 16–18; TEMP 97.3–98.3; O2SAT 92–98
[2018-01-05] MEDS: PIPERACIL-TAZO 4.5 GM PREMIX 100 ML IV SCH ×5 (00:13→23:37)
[2018-01-05] MEDS: methylPREDNISolone SOD SUCC 40 MG/1 ML VIAL IV PUSH SCH ×5 (00:13→23:35)
[2018-01-05 07:37] LABS: CREATININE 1.09 MG/DL (0.50-1.00)
[2018-01-05] MEDS: RESP: ALBUTEROL 2.5 MG/IPRATROPIUM 0.5 MG NEB (SCH) NEB ×3 (08:04→21:13)
[2018-01-05] MEDS: VANCOMYCIN 1,000 MG/NS 250 ML IV SCH ×2 (08:25)
[2018-01-05] MEDS: SODIUM CHLORIDE 0.9% FLUSH 10 ML FLUSH IV FLUSH SCH ×2 (08:26→21:36)
[2018-01-05] MEDS: METOPROLOL TARTRATE 100 MG TAB PO SCH ×2 (08:26→21:37)
[2018-01-05] MEDS: ACETAMINOPHEN/HYDROcodone 325 MG/5 MG TAB PO PRN ×2 (08:26→17:38)
[2018-01-05] MEDS: BUDESONIDE-FORMOTEROL 160/4.5 MCG INHALER INH SCH ×2 (08:26→21:36)
[2018-01-05] MEDS: guaiFENesin E.R. 600 MG TAB PO SCH ×2 (08:26→21:37)
[2018-01-05] MEDS: DOCUSATE SODIUM 50 MG/SENNA 8.6 MG TAB PO SCH ×2 (08:26→21:37)
[2018-01-05] MEDS: clonazePAM 0.5 MG TAB PO PRN ×2 (12:37→21:37)
--- NOTE | 2018-01-05 15:09 | HHI.PR ---
Subjective Remarks Patient complains that she received the wrong breakfast. She states that she feels a little better compared to yesterday. Her access to medications for proper treatment of COPD as an outpatient have been limited. Objective Vitals Vital Signs Date Time Temp Pulse Resp B/P (MAP) Pulse Ox O2 Delivery O2 Flow Rate FiO2 01/05/18 12:00 97.7 77 16 132/63 (86) 96 01/05/18 08:05 93 Nasal Cannula 3.00 01/05/18 08:00 98.1 76 16 155/70 (98) 94 01/05/18 03:20 97.7 75 16 133/64 (87) 92 01/05/18 00:30 97.3 78 17 128/56 (80) 96 01/04/18 21:25 97.3 81 17 132/64 (86) 95 01/04/18 20:50 96 Nasal Cannula 2.00 01/04/18 16:27 95 Nasal Cannula 3.00 01/04/18 16:00 98.3 83 18 143/63 (89) 96 I/O 01/04/18 01/04/18 01/04/18 01/05/18 01/05/18 01/05/18 07:00 15:00 23:00 07:00 15:00 23:00 Intake Total 1390 ml 957 ml 1300 ml 1661 ml Balance 1390 ml 957 ml 1300 ml 1661 ml Intake Oral 240 ml 600 ml 1200 ml IV Total 700 ml 357 ml 100 ml 1661 ml Packed Cells 400 ml Blood Product IV Normal Saline Flush 50 ml # Voids 2 3 6 # Bowel Movements 0 0 Result Diagram: 01/04/18 0628 01/05/18 0537 Objective Remarks GENERAL: Thin patient, cognitively intact, on oxygen SKIN: Warm and dry. HEAD: Normocephalic. EYES: No scleral icterus. No injection or drainage. NECK: Supple, trachea midline. No JVD or lymphadenopathy. CARDIOVASCULAR: Regular rate and rhythm without murmurs, gallops, or rubs. RESPIRATORY: Diminished breath sounds in bilateral bases, soft fine crackles in right base, no marked wheezing GASTROINTESTINAL: Abdomen soft, non-tender, nondistended. EXTREMITIES: No cyanosis, or edema. NEUROLOGICAL: Awake, alert, and oriented x 3. Non-focal. A/P Problem List: (1) PNA (pneumonia) ICD Code: J18.9 - Pneumonia, unspecified organism (2) Hypoxia ICD Code: R09.02 - Hypoxemia (3) COPD (chronic obstructive pulmonary disease) ICD Code: J44.9 - Chronic obstructive pulmonary disease, unspecified (4) Anemia ICD Code: D64.9 - Anemia, unspecified Assessment and Plan Pneumonia Consolidation versus ill-defined air space disease evident in the lingula CTA was negative for pulmonary embolism but showed increasing size of consolidation Fevers and chills at home plus hypoxemia when she presented to her primary care doctor Continue with IV vancomycin and IV Zosyn Follow up sputum cultures Emphysema Much of this presentation is due to CHF exacerbation Continue scheduled duo nebs, Solu-Medrol IV, Mucinex, budesonide Our goals should not be to get her oxygen into the high 90s. Due to COPD her baseline is likely closer to 90%, if not below. Continue oxygen use for now, will attempt to wean when clinically appropriate. Oxygen walk test today Anemia Repeat hemoglobin was 9.1, appears stable Following trend DVT prophylaxis GIOs Parviz Gerard MD Jan 05, 2018 15:09
[2018-01-05] MEDS: SODIUM CHLORIDE 0.9% FLUSH 10 ML FLUSH IVF PRN ×2 (17:37→23:35)
[2018-01-05] MEDS: ATORVASTATIN 40 MG TAB PO SCH (21:37)
[2018-01-06] VITALS (8 sets, daily range): BP systolic 134–180; BP diastolic 61–78; PULSE 75–93; RESP 17–18; TEMP 97.6–99.2; O2SAT 94–99
[2018-01-06] MEDS ORDERED: PHARMACY ORDERED LAB ONE (03:45)
[2018-01-06] MEDS: VANCOMYCIN 1,000 MG/NS 250 ML IV SCH ×2 (03:56)
[2018-01-06] MEDS: RESP: ALBUTEROL 2.5 MG/IPRATROPIUM 0.5 MG NEB (PRN) NEB (04:30)
[2018-01-06] MEDS: methylPREDNISolone SOD SUCC 40 MG/1 ML VIAL IV PUSH SCH ×2 (05:16→12:19)
[2018-01-06] MEDS: PIPERACIL-TAZO 4.5 GM PREMIX 100 ML IV SCH ×2 (05:17→12:17)
[2018-01-06 07:27] LABS: HEMATOCRIT 23.7 % (35.0-46.0); HEMOGLOBIN 8.1 GM/DL (11.6-15.3); MEAN CELL VOLUME 92.2 FL (80.0-100.0); MEAN CORPUSCULAR HEMOGLOBIN 31.5 PG (27.0-34.0); MEAN CORPUSCULAR HGB CONC 34.2 % (32.0-36.0); MEAN PLATELET VOLUME 8.5 FL (7.0-11.0); PLATELET COUNT 319 TH/MM3 (150-450); RED BLOOD COUNT 2.57 MIL/MM3 (4.00-5.30); RED CELL DISTRIBUTION WIDTH 16.2 % (11.6-17.2); WHITE BLOOD COUNT 7.2 TH/MM3 (4.0-11.0)
[2018-01-06 07:43] LABS: BICARBONATE 26.8 MEQ/L (21.0-32.0); CALCIUM 8.4 MG/DL (8.5-10.1); CREATININE 1.03 MG/DL (0.50-1.00)
[2018-01-06] MEDS: RESP: ALBUTEROL 2.5 MG/IPRATROPIUM 0.5 MG NEB (SCH) NEB ×3 (07:44→19:10)
[2018-01-06] MEDS: METOPROLOL TARTRATE 100 MG TAB PO SCH ×2 (07:47→21:04)
[2018-01-06] MEDS: BUDESONIDE-FORMOTEROL 160/4.5 MCG INHALER INH SCH ×2 (07:50→21:05)
[2018-01-06] MEDS: SODIUM CHLORIDE 0.9% FLUSH 10 ML FLUSH IV FLUSH SCH ×2 (07:52→21:00)
[2018-01-06] MEDS: DOCUSATE SODIUM 50 MG/SENNA 8.6 MG TAB PO SCH ×2 (09:00→21:04)
[2018-01-06] MEDS ORDERED: guaiFENesin E.R. 600 MG TAB PO SCH (12:00)
--- NOTE | 2018-01-06 16:45 | HHI.PR ---
Subjective Remarks Patient states she is feeling better. She is ambulating around her room without oxygen and straightening up her area. She remains afebrile. Objective Vitals Vital Signs Date Time Temp Pulse Resp B/P (MAP) Pulse Ox O2 Delivery O2 Flow Rate FiO2 01/06/18 12:00 98.3 76 18 138/65 (89) 96 01/06/18 08:00 97.6 85 18 154/70 (98) 95 01/06/18 07:45 97 Nasal Cannula 3.00 01/06/18 07:10 Nasal Cannula 3.00 01/06/18 00:00 98.0 85 17 134/61 (85) 98 01/05/18 21:14 94 Nasal Cannula 3.00 01/05/18 19:04 98.3 87 18 121/60 (80) 97 I/O 01/05/18 01/05/18 01/05/18 01/06/18 01/06/18 01/06/18 07:00 15:00 23:00 07:00 15:00 23:00 Intake Total 1300 ml 2141 ml 960 ml 600 ml Balance 1300 ml 2141 ml 960 ml 600 ml Intake Oral 1200 ml 480 ml 960 ml 600 ml IV Total 100 ml 1661 ml # Voids 6 3 6 3 # Bowel Movements 0 1 0 2 Result Diagram: 01/06/1862201/06/18622 Objective Remarks GENERAL: Thin patient, cognitively intact, on oxygen SKIN: Warm and dry. HEAD: Normocephalic. EYES: No scleral icterus. No injection or drainage. NECK: Supple, trachea midline. No JVD or lymphadenopathy. CARDIOVASCULAR: Regular rate and rhythm without murmurs, gallops, or rubs. RESPIRATORY: Diminished breath sounds in bilateral bases, soft fine crackles in right base, no marked wheezing GASTROINTESTINAL: Abdomen soft, non-tender, nondistended. EXTREMITIES: No cyanosis, or edema. NEUROLOGICAL: Awake, alert, and oriented x 3. Non-focal. A/P Problem List: (1) PNA (pneumonia) ICD Code: J18.9 - Pneumonia, unspecified organism (2) Hypoxia ICD Code: R09.02 - Hypoxemia (3) COPD (chronic obstructive pulmonary disease) ICD Code: J44.9 - Chronic obstructive pulmonary disease, unspecified (4) Anemia ICD Code: D64.9 - Anemia, unspecified Assessment and Plan Pneumonia Consolidation versus ill-defined air space disease evident in the lingula CTA was negative for pulmonary embolism but showed increasing size of consolidation Fevers and chills at home plus hypoxemia when she presented to her primary care doctor Continue with IV vancomycin and IV Zosyn Follow up sputum cultures Emphysema Continue scheduled duo nebs, Solu-Medrol IV, Mucinex, budesonide Our goals should not be to get her oxygen into the high 90s. Due to COPD her baseline is likely closer to 90%, if not below. Continue oxygen use for now, will attempt to wean when clinically appropriate. Failed oxygen walk test yesterday with saturations down to 86% while on oxygen. Anemia Repeat hemoglobin was 9.1, appears stable Following trend DVT prophylaxis Parviz Arreguin MD Jan 06, 2018 16:45
[2018-01-06] MEDS: ACETAMINOPHEN/HYDROcodone 325 MG/5 MG TAB PO PRN ×2 (17:42→22:12)
[2018-01-06] MEDS: predniSONE 50 MG TAB PO SCH (17:45)
[2018-01-06] MEDS: LEVOFLOXACIN 750 MG TAB PO SCH (17:45)
[2018-01-06] MEDS: ATORVASTATIN 40 MG TAB PO SCH (21:04)
[2018-01-06] MEDS: clonazePAM 0.5 MG TAB PO PRN (21:04)
[2018-01-06] MEDS: guaiFENesin SOLUTION 200 MG/10 ML CUP PO PRN (22:10)
[2018-01-07] VITALS (7 sets, daily range): BP systolic 142–166; BP diastolic 65–90; PULSE 70–84; RESP 15–19; TEMP 98–98.6; O2SAT 86–100
[2018-01-07 07:02] LABS: HEMATOCRIT 24.6 % (35.0-46.0); HEMOGLOBIN 8.1 GM/DL (11.6-15.3); MEAN CELL VOLUME 92.6 FL (80.0-100.0); MEAN CORPUSCULAR HEMOGLOBIN 30.3 PG (27.0-34.0); MEAN CORPUSCULAR HGB CONC 32.8 % (32.0-36.0); MEAN PLATELET VOLUME 8.5 FL (7.0-11.0); PLATELET COUNT 322 TH/MM3 (150-450); RED BLOOD COUNT 2.66 MIL/MM3 (4.00-5.30); RED CELL DISTRIBUTION WIDTH 15.8 % (11.6-17.2); WHITE BLOOD COUNT 6.8 TH/MM3 (4.0-11.0)
[2018-01-07] MEDS: RESP: ALBUTEROL 2.5 MG/IPRATROPIUM 0.5 MG NEB (SCH) NEB ×3 (08:16→19:38)
[2018-01-07] MEDS: METOPROLOL TARTRATE 100 MG TAB PO SCH ×2 (08:49→22:11)
[2018-01-07] MEDS: LEVOFLOXACIN 750 MG TAB PO SCH (08:49)
[2018-01-07] MEDS: DOCUSATE SODIUM 50 MG/SENNA 8.6 MG TAB PO SCH ×3 (08:49→22:11)
[2018-01-07] MEDS: predniSONE 50 MG TAB PO SCH (08:56)
[2018-01-07] MEDS: BUDESONIDE-FORMOTEROL 160/4.5 MCG INHALER INH SCH ×2 (08:56→22:15)
[2018-01-07] MEDS: SODIUM CHLORIDE 0.9% FLUSH 10 ML FLUSH IV FLUSH SCH ×2 (08:57→21:00)
--- NOTE | 2018-01-07 09:59 | HHI.PR ---
Subjective Remarks in no acute distress. on oxygen via N/C. no fever. Objective Vitals Vital Signs Date Time Temp Pulse Resp B/P (MAP) Pulse Ox O2 Delivery O2 Flow Rate FiO2 01/07/18 08:17 86 21 01/07/18 08:17 92 Nasal Cannula 3.00 01/07/18 08:00 98.1 70 19 162/90 (114) 100 01/07/18 00:00 84 18 166/72 (103) 96 01/06/18 22:07 98.1 75 18 180/78 (112) 96 01/06/18 22:00 Nasal Cannula 3.00 01/06/18 20:28 Nasal Cannula 3.00 01/06/18 20:00 99.2 93 18 156/72 (100) 99 01/06/18 19:10 94 Nasal Cannula 3.00 01/06/18 16:00 98.4 88 18 143/66 (91) 96 01/06/18 12:00 98.3 76 18 138/65 (89) 96 I/O 01/06/18 01/06/18 01/06/18 01/07/18 01/07/18 01/07/18 07:00 15:00 23:00 07:00 15:00 23:00 Intake Total 960 ml 600 ml 240 ml Balance 960 ml 600 ml 240 ml Intake Oral 960 ml 600 ml 240 ml # Voids 6 3 1 # Bowel Movements 0 2 Result Diagram: 01/07/18 0610 01/06/18 0623 Imaging Last Impressions Chest X-Ray 01/03/18 1317 Signed Impressions: Service Date/Time: Wednesday, January 03, 2018 13:46 - CONCLUSION: 1. Progression of interstitial edema and ill-defined airspace disease in the lingula. Differential considerations include pneumonia versus aspiration. 2. Patchy bibasilar airspace disease, slightly more confluent in the left lung base. This also appears to have progressed since previous examination. Again, differential considerations include chronic aspiration or atypical infection. 3. Recommend followup to resolution to exclude malignancy. Esvin Dowd MD CT Angiography 01/03/18 0000 Signed Impressions: Service Date/Time: Wednesday, January 03, 2018 16:57 - CONCLUSION: 1. Increasing size consolidative changes left lung suspicious for inflammatory process 2. Abnormal left adrenal gland. Vikram Giraldo MD FACR Objective Remarks GENERAL: This is a well-nourished, well-developed patient, in no apparent distress. CARDIOVASCULAR: Regular rate and regular rhythm without murmurs, gallops, or rubs. RESPIRATORY: diminished air entry in bases. GASTROINTESTINAL: Abdomen soft, non-tender, nondistended. Normal, active bowel sounds MUSCULOSKELETAL: Extremities without clubbing, cyanosis, or edema. NEURO: Alert & Oriented x4 to person, place, time, situation. Moves all ext x4 Medications and IVs Inpatient Medications Acetaminophen (Tylenol) 650 mg Q6H PRN PO FEVER/PAIN SCALE 1 TO 2; Start at 19:15 Acetaminophen/ Hydrocodone Bitart ([place]son 5-325 Mg) 1 tab Q4H PRN PO PAIN SCALE 3 TO 5 Last administered on 01/06/18at 22:12; Start 01/03/18 at 19:15 Albuterol/ Ipratropium (Duoneb Neb) 1 ampule Q4HR NEB PRN NEB SOB/WHEEZING Last administered on 01/06/18at 04:30; Start 01/06/18 at 04:30 Amlodipine Besylate (Norvasc) 10 mg DAILY PO Last administered on 01/07/18at 08: 49; Start 01/04/18 at 09:00 Atorvastatin Calcium (Lipitor) 40 mg HS PO Last administered on 01/06/18at 21:04 ; Start 01/03/18 at 21:00 Azithromycin 500 mg/Sodium Chloride 250 ml @ 250 mls/hr ONCE ONCE IV Last administered on 01/03/18at 15:33; Start 01/03/18 at 14:45; Stop 01/03/18 at 15:47 ; Status DC Bisacodyl (Dulcolax Supp) 10 mg DAILY PRN RECTAL SEVERE CONSITIPATION; Start at 19:15 Budesonide/ Formoterol Fumarate (Symbicort 160-4.5 Mcg Inh) 2 puff Q12HR INH Last administered on 01/07/18at 08:56; Start 01/03/18 at 21:00 Clonazepam (KlonoPIN) 0.5 mg Q8H PRN PO MODERATE TO SEVERE ANXIETY Last administered on 01/06/18at 21:04; Start 01/03/18 at 19:15 Guaifenesin (Mucinex Er) 1,200 mg BID PO ; Start 01/06/18 at 12:00; Stop at 15:25; Status DC Guaifenesin (Robitussin Liq) 200 mg Q4H PRN PO cough/congestion Last administered on 01/06/18at 22:10; Start 01/06/18 at 15:30 Heparin Sodium (Porcine) (Heparin Inj) 5,000 units Q12H SQ ; Start 01/04/18 at 09:00; Stop 01/04/18 at 09:00; Status DC Lactulose (Lactulose Liq) 30 ml DAILY PRN PO SEVERE CONSITIPATION; Start at 19:15 Levofloxacin (Levaquin) 750 mg DAILY PO Last administered on 01/07/18at 08:49; Start 01/06/18 at 14:30 Magnesium Hydroxide (Milk Of Magnesia Liq) 30 ml Q12H PRN PO Mild constipation ; Start 01/03/18 at 19:15 Methylprednisolone Sodium Succinate (SoluMEDROL INJ) 40 mg Q6HR IV PUSH Last administered on 01/06/18at 12:19; Start 01/04/18 at 00:00; Stop 01/06/18 at 14:29 ; Status DC Metoprolol Tartrate (Lopressor) 100 mg BID PO Last administered on 01/07/18at 08 :49; Start 01/03/18 at 21:00 Miscellaneous Information SPECIFIC LAB TO BE PACO... ONCE ONCE .XX ; Start 01/07 at 15:45; Stop 01/07/18 at 15:45; Status DC Morphine Sulfate (Morphine Inj) 2 mg Q3H PRN IV PUSH Pain 6-10; Start 01/03/18 at 19:15; Stop 01/06/18 at 14:29; Status DC Ondansetron HCl (Zofran Inj) 4 mg Q6H PRN IVP NAUSEA OR VOMITING; Start at 19:15; Stop 01/06/18 at 14:29; Status DC Pantoprazole Sodium (Protonix Inj) 40 mg ONCE ONCE IV PUSH Last administered on 01/03/18at 18:48; Start 01/03/18 at 18:00; Stop 01/03/18 at 18:01; Status DC Pharmacy Profile Note 0 ml @ 0 mls/hr UNSCH OTHER ; Start 01/03/18 at 19:15; Stop 01/06/18 at 14:29; Status DC Piperacillin Sod/ Tazobactam Sod 100 ml @ 200 mls/hr Q6H IV Last administered on 01/06/18at 12:17; Start 01/04/18 at 06:00; Stop 01/06/18 at 14:29; Status DC Prednisone (Deltasone) 50 mg DAILY PO Last administered on 01/07/18at 08:56; Start 01/06/18 at 14:30 Senna/Docusate Sodium (Annabelle-Colace) 1 tab BID PO Last administered on at 21:04; Start 01/03/18 at 21:00 Sennosides (Senokot) 17.2 mg Q12H PRN PO Moderate constipation; Start 01/03/18 at 19:15 Sodium Chloride (NS Flush) 2 ml BID IV FLUSH Last administered on 01/06/18at 07: 52; Start 01/03/18 at 21:00 Vancomycin HCl 1000 mg/Sodium Chloride 250 ml @ 250 mls/hr Q18H IV Last administered on 01/06/18at 03:56; Start 01/04/18 at 16:00; Stop 01/06/18 at 14:29 ; Status DC Vancomycin HCl 2000 mg/Sodium Chloride 520 ml @ 250 mls/hr ONCE ONCE IV Last administered on 01/04/18at 00:37; Start 01/03/18 at 20:00; Stop 01/03/18 at 22:04 ; Status DC A/P Problem List: (1) PNA (pneumonia) ICD Code: J18.9 - Pneumonia, unspecified organism (2) Hypoxia ICD Code: R09.02 - Hypoxemia (3) COPD (chronic obstructive pulmonary disease) ICD Code: J44.9 - Chronic obstructive pulmonary disease, unspecified (4) Anemia ICD Code: D64.9 - Anemia, unspecified Assessment and Plan Pneumonia Consolidation versus ill-defined air space disease evident in the lingula CTA was negative for pulmonary embolism but showed increasing size of consolidation Fevers and chills at home plus hypoxemia when she presented to her primary care doctor Continue with Levaquin repeat CXR today. . Emphysema Continue neb treatment/ oxygen and prednisone. Our goals should not be to get her oxygen into the high 90s. Due to COPD her baseline is likely closer to 90%, if not below. failed walk test. case management for home oxygen. Anemia H/H fairly stable. will monitor. anemia w/u. Following trend DVT prophylaxis SCDs Discharge Planning dc home within the next 24-48 hrs-. Rodrigo Montoya MD Jan 07, 2018 09:59
[2018-01-07] MEDS ORDERED: OXYGENDME NAS.CANULA (10:03)
--- NOTE | 2018-01-07 11:20 | RADRPT ---
EXAM DATE/TIME: 01/07/2018 10:34 [facility] COMPARISON: No previous studies available for comparison. INDICATIONS : Pneumonia. MEDICAL HISTORY : Hypertension. Chronic obstructive pulmonary disease. SURGICAL HISTORY : None. ENCOUNTER: Initial ACUITY: 4 - 6 days PAIN SCORE: 0/10 LOCATION: Bilateral chest FINDINGS: Lungs are hyperinflated. Increased density with blunting of the calcified angles identified in the left base. Main pulmonary arteries are enlarged. Heart is normal in size. CONCLUSION: 1. Left basilar opacity and mild blunting of the costophrenic angle characteristic of airspace diseas e with possible small parapneumonic effusion. 2. COPD 3. Enlarged pulmonary arteries. Ramírez Arshad MD on January 07, 2018 at 11:16 Board Certified Radiologist. This report was verified electronically.
[2018-01-07 11:44] LABS: % SATURATION IRON PROFILE 27.8 % (20-50); IRON (FE) 76 MCG/DL (50-170); TOTAL IRON BINDING CAPACITY 273 MCG/DL (250-450)
[2018-01-07 11:47] LABS: FERRITIN 88 NG/ML (8-252)
[2018-01-07] MEDS ORDERED: PHARMACY ORDERED LAB ONE (15:45)
[2018-01-07] MEDS: guaiFENesin SOLUTION 200 MG/10 ML CUP PO PRN (22:09)
[2018-01-07] MEDS: ACETAMINOPHEN/HYDROcodone 325 MG/5 MG TAB PO PRN (22:10)
[2018-01-07] MEDS: ATORVASTATIN 40 MG TAB PO SCH (22:11)
[2018-01-07] MEDS: clonazePAM 0.5 MG TAB PO PRN (22:13)
[2018-01-08 08:00] VITALS: BP 179/77; PULSE 65; RESP 18; TEMP 98; O2SAT 95
[2018-01-08] MEDS: DOCUSATE SODIUM 50 MG/SENNA 8.6 MG TAB PO SCH ×2 (08:05→21:22)
[2018-01-08] MEDS: SODIUM CHLORIDE 0.9% FLUSH 10 ML FLUSH IV FLUSH SCH ×2 (08:05→21:23)
[2018-01-08] MEDS: METOPROLOL TARTRATE 100 MG TAB PO SCH ×2 (08:05→21:22)
[2018-01-08] MEDS: LEVOFLOXACIN 750 MG TAB PO SCH (08:05)
[2018-01-08] MEDS: predniSONE 50 MG TAB PO SCH (08:05)
[2018-01-08] MEDS: BUDESONIDE-FORMOTEROL 160/4.5 MCG INHALER INH SCH ×2 (08:06→21:23)
[2018-01-08] MEDS: RESP: ALBUTEROL 2.5 MG/IPRATROPIUM 0.5 MG NEB (SCH) NEB ×2 (08:08→13:29)
[2018-01-08 08:09] VITALS: O2SAT 95
--- NOTE | 2018-01-08 08:34 | HHI.PR ---
Subjective Remarks in no acute distress. still on oxygen 1.5 l/m via N/C. afebrile. d/w the RN. Objective Vitals Vital Signs Date Time Temp Pulse Resp B/P (MAP) Pulse Ox O2 Delivery O2 Flow Rate FiO2 01/08/18 08:09 95 Nasal Cannula 2.00 01/07/18 21:30 Nasal Cannula 1.50 01/07/18 20:00 98.0 83 15 148/67 (94) 96 01/07/18 19:38 96 Nasal Cannula 3.00 01/07/18 16:00 98.5 79 18 142/65 (90) 95 01/07/18 12:00 98.6 71 17 160/70 (100) 99 01/07/18 08:40 100 Nasal Cannula 3.00 I/O 01/07/18 01/07/18 01/07/18 01/08/18 01/08/18 01/08/18 07:00 15:00 23:00 07:00 15:00 23:00 Intake Total 240 ml 1200 ml 240 ml Output Total 1850 ml Balance 240 ml -650 ml 240 ml Intake Oral 240 ml 1200 ml 240 ml Output Urine Total 1850 ml # Voids 1 3 # Bowel Movements 2 0 Result Diagram: 01/07/18 0610 01/06/18 0623 Imaging Last Impressions Chest X-Ray 01/07/18 0000 Signed Impressions: Service Date/Time: Sunday, January 07, 2018 10:34 - CONCLUSION: 1. Left basilar opacity and mild blunting of the costophrenic angle characteristic of airspace disease with possible small parapneumonic effusion. 2. COPD 3. Enlarged pulmonary arteries. Ramírez Arshad MD CT Angiography 01/03/18 0000 Signed Impressions: Service Date/Time: Wednesday, January 03, 2018 16:57 - CONCLUSION: 1. Increasing size consolidative changes left lung suspicious for inflammatory process 2. Abnormal left adrenal gland. Vikram Giraldo MD FACR Objective Remarks GENERAL: This is a well-nourished, well-developed patient, in no apparent distress. CARDIOVASCULAR: Regular rate and regular rhythm without murmurs, gallops, or rubs. RESPIRATORY: diminished air entry in bases. GASTROINTESTINAL: Abdomen soft, non-tender, nondistended. Normal, active bowel sounds MUSCULOSKELETAL: Extremities without clubbing, cyanosis, or edema. NEURO: Alert & Oriented x4 to person, place, time, situation. Moves all ext x4 Medications and IVs Inpatient Medications Acetaminophen (Tylenol) 650 mg Q6H PRN PO FEVER/PAIN SCALE 1 TO 2; Start at 19:15 Acetaminophen/ Hydrocodone Bitart ([place] 5-325 Mg) 1 tab Q4H PRN PO PAIN SCALE 3 TO 5 Last administered on 01/07/18at 22:10; Start 01/03/18 at 19:15 Albuterol/ Ipratropium (Duoneb Neb) 1 ampule Q4HR NEB PRN NEB SOB/WHEEZING Last administered on 01/06/18at 04:30; Start 01/06/18 at 04:30 Amlodipine Besylate (Norvasc) 10 mg DAILY PO Last administered on 01/08/18at 08: 05; Start 01/04/18 at 09:00 Atorvastatin Calcium (Lipitor) 40 mg HS PO Last administered on 01/07/18at 22:11 ; Start 01/03/18 at 21:00 Azithromycin 500 mg/Sodium Chloride 250 ml @ 250 mls/hr ONCE ONCE IV Last administered on 01/03/18at 15:33; Start 01/03/18 at 14:45; Stop 01/03/18 at 15:47 ; Status DC Bisacodyl (Dulcolax Supp) 10 mg DAILY PRN RECTAL SEVERE CONSITIPATION; Start at 19:15 Budesonide/ Formoterol Fumarate (Symbicort 160-4.5 Mcg Inh) 2 puff Q12HR INH Last administered on 01/08/18at 08:06; Start 01/03/18 at 21:00 Clonazepam (KlonoPIN) 0.5 mg Q8H PRN PO MODERATE TO SEVERE ANXIETY Last administered on 01/07/18at 22:13; Start 01/03/18 at 19:15 Guaifenesin (Mucinex Er) 1,200 mg BID PO ; Start 01/06/18 at 12:00; Stop at 15:25; Status DC Guaifenesin (Robitussin Liq) 200 mg Q4H PRN PO cough/congestion Last administered on 01/07/18at 22:09; Start 01/06/18 at 15:30 Heparin Sodium (Porcine) (Heparin Inj) 5,000 units Q12H SQ ; Start 01/04/18 at 09:00; Stop 01/04/18 at 09:00; Status DC Lactulose (Lactulose Liq) 30 ml DAILY PRN PO SEVERE CONSITIPATION; Start at 19:15 Levofloxacin (Levaquin) 750 mg DAILY PO Last administered on 01/08/18at 08:05; Start 01/06/18 at 14:30 Magnesium Hydroxide (Milk Of Magnesia Liq) 30 ml Q12H PRN PO Mild constipation ; Start 01/03/18 at 19:15 Methylprednisolone Sodium Succinate (SoluMEDROL INJ) 40 mg Q6HR IV PUSH Last administered on 01/06/18at 12:19; Start 01/04/18 at 00:00; Stop 01/06/18 at 14:29 ; Status DC Metoprolol Tartrate (Lopressor) 100 mg BID PO Last administered on 01/08/18at 08 :05; Start 01/03/18 at 21:00 Miscellaneous Information SPECIFIC LAB TO BE PACO... ONCE ONCE .XX ; Start 01/07 at 15:45; Stop 01/07/18 at 15:45; Status DC Morphine Sulfate (Morphine Inj) 2 mg Q3H PRN IV PUSH Pain 6-10; Start 01/03/18 at 19:15; Stop 01/06/18 at 14:29; Status DC Ondansetron HCl (Zofran Inj) 4 mg Q6H PRN IVP NAUSEA OR VOMITING; Start at 19:15; Stop 01/06/18 at 14:29; Status DC Pantoprazole Sodium (Protonix Inj) 40 mg ONCE ONCE IV PUSH Last administered on 01/03/18at 18:48; Start 01/03/18 at 18:00; Stop 01/03/18 at 18:01; Status DC Pharmacy Profile Note 0 ml @ 0 mls/hr UNSCH OTHER ; Start 01/03/18 at 19:15; Stop 01/06/18 at 14:29; Status DC Piperacillin Sod/ Tazobactam Sod 100 ml @ 200 mls/hr Q6H IV Last administered on 01/06/18at 12:17; Start 01/04/18 at 06:00; Stop 01/06/18 at 14:29; Status DC Prednisone (Deltasone) 50 mg DAILY PO Last administered on 01/08/18at 08:05; Start 01/06/18 at 14:30 Senna/Docusate Sodium (Annabelle-Colace) 1 tab BID PO Last administered on at 08:05; Start 01/03/18 at 21:00 Sennosides (Senokot) 17.2 mg Q12H PRN PO Moderate constipation; Start 01/03/18 at 19:15 Sodium Chloride (NS Flush) 2 ml BID IV FLUSH Last administered on 01/06/18at 07: 52; Start 01/03/18 at 21:00 Vancomycin HCl 1000 mg/Sodium Chloride 250 ml @ 250 mls/hr Q18H IV Last administered on 01/06/18at 03:56; Start 01/04/18 at 16:00; Stop 01/06/18 at 14:29 ; Status DC Vancomycin HCl 2000 mg/Sodium Chloride 520 ml @ 250 mls/hr ONCE ONCE IV Last administered on 01/04/18at 00:37; Start 01/03/18 at 20:00; Stop 01/03/18 at 22:04 ; Status DC A/P Problem List: (1) PNA (pneumonia) ICD Code: J18.9 - Pneumonia, unspecified organism (2) Hypoxia ICD Code: R09.02 - Hypoxemia (3) COPD (chronic obstructive pulmonary disease) ICD Code: J44.9 - Chronic obstructive pulmonary disease, unspecified (4) Anemia ICD Code: D64.9 - Anemia, unspecified Assessment and Plan Pneumonia Consolidation versus ill-defined air space disease evident in the lingula CTA was negative for pulmonary embolism but showed increasing size of consolidation Fevers and chills at home plus hypoxemia when she presented to her primary care doctor Continue with Levaquin Emphysema Continue neb treatment/ oxygen and prednisone. Our goals should not be to get her oxygen into the high 90s. Due to COPD her baseline is likely closer to 90%, if not below. failed walk test; will try to taper down the oxygen as tolerated. case management for home oxygen. Anemia H/H fairly stable- however with gradual downward trend and positive hemoccult. consult GI. continue to monitor. DVT prophylaxis SCDs Discharge Planning has to stay for now since needs home oxygen and patient is a self-pay, awaiting GI evaluation. Rodrigo Montoya MD Jan 08, 2018 08:34
[2018-01-08 12:00] VITALS: BP 162/70; PULSE 65; RESP 18; TEMP 98.6; O2SAT 98
[2018-01-08 12:02] LABS: HEMOGLOBIN 10.2 GM/DL (11.6-15.3)
--- NOTE | 2018-01-08 13:30 | PD.CONS ---
HPI History of Present Illness This is a 62 year old with PMH significant for HTN, hyperlipidemia, COPD, PNA, and recent admission in beginning of December where a cardiac cath revealed 3 vessel disease. Pt states she went to her PCP at the [facility] for follow up , was still having SOB so they obtained a chest x-ray which revealed the PNA was worse from when she was discharged from her previous admission in the beginning of December. The PCP recommended that pt come to the ER for further work up. Our service has been consulted to evaluate pt for anemia and positive Hemoccult stool. Pt reports chronic anemia, however hgb was 12.6 during last admission. Denies ever being on iron supplementation or B12 in the past and denies being advised of this. Denies acid reflux, heartburn, dysphagia, abdominal pain. States has chronic constipation, denies any blood in stool or melena. Does not take any OTC medication for constipation, lets it resolve on its own. Last BM was this morning and reports it was soft. GI history significant for diverticulitis S/P lower anterior resection and sigmoid colostomy and Armando closure of the rectum S/P reversal of colostomy in 2009. Pt denies any colonoscopy since having this procedure. Does not think she has ever had an EGD. Denies ETOH since previous admission in December. Quit smoking December 12. Denies NSAIDs, not on blood thinners. (Irene Hou) PFSH Past Medical History PMH: HTN, Hyperlipidemia, Anxiety and COPD, Diverticulitis Past Surgical History PAST SURGICAL HISTORY: Colostomy with Reversal, Hysterectomy (Irene Hou) Coded Allergies: Sulfa (Sulfonamide Antibiotics) (Unverified Allergy, Mild, HIVES and sob, 01/03/18) Family History PAST FAMILY HISTORY: Reviewed. No h/o DM or CAD Social History PAST SOCIAL HISTORY: History of alcohol and tobacco abuse, quit 12/12/17. Negative for drugs. (Irene Hou) Review of Systems Gastrointestinal: COMPLAINS OF: Constipation, DENIES: Abdominal pain, Black stools, Bloody stools, Diarrhea, Nausea, Vomiting, Difficulty Swallowing, Anorexia, Odynophagia, Swelling of Abdomen, Heartburn, Hematemesis (Irene Hou) GI Exam Vitals I&O Vital Signs Date Time Temp Pulse Resp B/P (MAP) Pulse Ox O2 Delivery O2 Flow Rate FiO2 01/08/18 12:00 98.6 65 18 162/70 (100) 98 01/08/18 08:10 95 Nasal Cannula 1.50 01/08/18 08:09 95 Nasal Cannula 2.00 01/08/18 08:00 98.0 65 18 179/77 (111) 95 01/07/18 21:30 Nasal Cannula 1.50 01/07/18 20:00 98.0 83 15 148/67 (94) 96 01/07/18 19:38 96 Nasal Cannula 3.00 01/07/18 16:00 98.5 79 18 142/65 (90) 95 I/O 01/07/18 01/07/18 01/07/18 01/08/18 01/08/18 01/08/18 07:00 15:00 23:00 07:00 15:00 23:00 Intake Total 240 ml 1200 ml 240 ml Output Total 1850 ml Balance 240 ml -650 ml 240 ml Intake Oral 240 ml 1200 ml 240 ml Output Urine Total 1850 ml # Voids 1 3 # Bowel Movements 2 0 Imaging Last Impressions Chest X-Ray 01/07/18 0000 Signed Impressions: Service Date/Time: Sunday, January 07, 2018 10:34 - CONCLUSION: 1. Left basilar opacity and mild blunting of the costophrenic angle characteristic of airspace disease with possible small parapneumonic effusion. 2. COPD 3. Enlarged pulmonary arteries. Ramírez Arshad MD CT Angiography 01/03/18 0000 Signed Impressions: Service Date/Time: Wednesday, January 03, 2018 16:57 - CONCLUSION: 1. Increasing size consolidative changes left lung suspicious for inflammatory process 2. Abnormal left adrenal gland. Vikram Giraldo MD FACR Laboratory Test 01/08/18 11:25 Hemoglobin 10.2 GM/DL Hematocrit 31.0 % Date/Time Source Procedure Growth Status 01/03/18 14:47 Blood Peripheral Aerobic Blood Culture - Final NO GROWTH IN 5 DAYS Complete 01/03/18 14:47 Blood Peripheral Anaerobic Blood Culture - Final NO GROWTH IN 5 DAYS Complete 01/07/18 11:05 Stool Stool Stool Occult Blood (DOLORES) - Final HEMOCCULT POSITIVE Complete 01/03/18 14:47 Nasal Aspirate Influenza Types A,B Antigen (DOLORES) - Final NEGATIVE FOR FLU A AND B ANTIGEN.... Complete Physical Examination HEENT: Normocephalic; atraumatic CHEST: Even/unlabored CARDIAC: RRR ABDOMEN: Soft, nondistended, nontender; bowel sounds active EXTREMITIES: No clubbing, cyanosis, or edema. SKIN: Normal; no rash; no jaundice. MEDICAL SUPERVISOR: No focal deficits; alert and oriented times three. (Irene Hou) Assessment and Plan Plan Assessment: - Anemia with positive Hemoccult stool- H/H on admission 7.9/23.5 now S/P 1 U PRBCs currently 10.2/. Denies acid reflux, heartburn, dysphagia, abdominal pain. Reports chronic constipation but has had soft stool since admission, last one this AM. Denies obvious GIB. Previous diverticulitis with S/P lower anterior resection and sigmoid colostomy and Armando closure of the rectum S/P reversal of colostomy in 2009. Pt denies any colonoscopy since having this procedure. Does not think she has ever had an EGD. Denies ETOH since previous admission in December. Quit smoking December 12. Denies NSAIDs, not on blood thinners. - NSTEMI during admission in beginning of December, cardiac cath 75% of ostial first diagonal artery and states likely due to extreme high demand of hypoxia from HTN and PNA- States at high-risk for PCI and recommended medical management, 3 vessel disease - PNA- pt went to PCP for follow up and had x-ray showing worsening PNA then during admission. Levaquin - Impaired renal function [id number] Plan: High risk for procedures- needs cardiac clearance EGD/colonoscopy after cleared by cardiology Monitor H/H Notify GI if active bleeding Protonix Further recommendations based on cardiac clearance and clinical course Pt has been seen and examined by myself and Dr. Mcelroy and this note is written on his behalf (Irene Hou) Physician Comments Patient seen and examined Agree with above Continue with current supportive care Monitor labs Endoscopy once patient is stable and cleared by cardiology (Manuel Mcelroy MD) Irene Hou Jan 08, 2018 13:30 Manuel Mcelroy MD Jan 08, 2018 22:52
[2018-01-08] MEDS: PANTOPRAZOLE SODIUM 40 MG VIAL IV PUSH SCH ×2 (13:56→21:23)
[2018-01-08] MEDS ORDERED: LISINOPRIL 5 MG TAB PO ONE (14:45)
[2018-01-08] MEDS: clonazePAM 0.5 MG TAB PO PRN ×2 (14:52→21:26)
--- NOTE | 2018-01-08 15:20 | MB ---
cc: Enriuqe Foreman MD DATE: 01/08/2018 HISTORY OF PRESENT ILLNESS: Lillian is a 62-year-old lady with history of hypertension, hyperlipidemia, COPD, pneumonia, nonobstructive coronary disease, was seen by her primary care doctor at the [facility] complaining of dyspnea. Chest x-ray showed a pneumonia. She was then referred to [facility] emergency room. The patient currently refuses to answer any specific questions regarding chest pain, shortness of breath, fevers, chills, cough, GI, bleeding, and I cannot really determine her review of systems in detail, so the rest of the history is obtained from the chart. The nurse was present at the bedside during the entire interaction with the patient. She is very evasive in answering my questions, specifically about chest pain, shortness of breath. PAST MEDICAL HISTORY: As per history of present illness. She has a history of hypertension, hyperlipidemia, anxiety, COPD, diverticulitis, history of colostomy with reversal, hysterectomy. ALLERGIES: SULFA. SOCIAL HISTORY: She quit smoking 12/12/2017. She has a history of alcohol use. Her heart catheterization done by myself on 12/16/2017, shows a 75% ostial first diagonal artery. Otherwise, she has mild to moderate 3-vessel coronary artery disease, EF ____. LV pressures were 230/19-22. EF was . Pulmonary capillary wedge pressure was 32/34-25, PA pressure 59/26-42. Cardiac index by Nichole is 2.9 L/m2 per minute, SVR 1820 dynes. MEDICATIONS IN THE HOSPITAL: Pantoprazole 40 IV q. 12 hours, levofloxacin 750 daily, prednisone 50 mg daily, amlodipine 10 mg daily, atorvastatin 40 mg at bedtime, metoprolol 100 b.i.d. ALLERGIES: SULFA. PHYSICAL EXAMINATION: VITAL SIGNS: Blood pressure 162/70, pulse 65, respiratory rate 18, temperature 98.6, sats 98% on 1.5 L nasal cannula. GENERAL: She is alert and oriented x 3, in no acute distress. NECK: Supple. No JVD, no bruit. CARDIOVASCULAR: S1, S2. No murmurs, rubs or gallops. LUNGS: Notable for decreased air movement of the left lung. ABDOMEN: Soft, nontender, nondistended with positive bowel sounds. EXTREMITIES: Lower extremity edema. DIAGNOSTIC DATA: CT of the chest shows an increasing size of the consolidative changes of the left lung suspicious for inflammatory process. Chest x-ray on 01/03/2018, shows progression of interstitial edema and ill-defined airspace disease in the lingula. Differential considerations include pneumonia versus aspiration. Patchy bibasilar airspace disease, slightly more confluent in the left lung base. This also appears to have progressed since previous examination. Again, differential considerations include chronic aspiration or atypical infection. "Recommend followup to resolution to exclude malignancy." Chest x-ray on 01/07/2018, left basilar opacity and mild blunting of the costophrenic angle characteristic of airspace disease with possible small parapneumonic effusion, COPD and large pulmonary arteries. EKG shows normal sinus rhythm at 69 beats per minute, nonspecific ST to T-wave changes. LABORATORY DATA: She has a white count at 3.2, hemoglobin 7.9, hematocrit 23.5, platelet count 329. Hemoglobin today is 10.2, sodium 142, potassium 4.0, chloride 106, bicarbonate 26.8, BUN 32, creatinine 1.03. LFTs normal. BNP 242. Troponin less than 0.02. INR 1.0. FINAL DIAGNOSES: 1. Pneumonia. 2. Coronary artery disease. 3. Hypertension. 4. Decompensated congestive heart failure. 5. Neutropenia. 6. Anemia. DISCUSSION: The patient appears comfortable. She will not give me a history regarding her review of systems. She is on atorvastatin 40 at bedtime. Optimally, she should be on a baby aspirin. However, she has unstable hemoglobin and this may need to be held in the short term until the etiology of her anemia can be determined and treated. Her blood pressure remains elevated. At this point in time, would add lisinopril 5 mg. Follow up blood pressure. Certainly, we need to follow the trends in her hemoglobin and follow up on the workup for her anemia as well. She is currently being treated with levofloxacin for her pneumonia. Also agree with amlodipine and metoprolol. MD TRISHA Springer/BEBETO , 02:41 PM , 03:18 PM
[2018-01-08 15:24] LABS: HEMATOCRIT 29.1 % (35.0-46.0); HEMOGLOBIN 9.7 GM/DL (11.6-15.3)
[2018-01-08 16:00] VITALS: BP 141/66; PULSE 71; RESP 18; TEMP 98.1; O2SAT 97
[2018-01-08 20:00] VITALS: BP 130/60; PULSE 68; RESP 20; TEMP 98.1; O2SAT 95
[2018-01-08] MEDS: ATORVASTATIN 40 MG TAB PO SCH (21:22)
[2018-01-08] MEDS: guaiFENesin SOLUTION 200 MG/10 ML CUP PO PRN (21:26)
[2018-01-09] VITALS (7 sets, daily range): BP systolic 125–182; BP diastolic 58–77; PULSE 64–71; RESP 16–20; TEMP 97.8–98.8; O2SAT 92–97
[2018-01-09 06:53] LABS: CALCIUM 8.2 MG/DL (8.5-10.1); CREATININE 0.98 MG/DL (0.50-1.00); MAGNESIUM 1.8 MG/DL (1.5-2.5)
--- NOTE | 2018-01-09 08:51 | HHI.PR ---
Subjective Remarks in no acute distress. sob improving - however still on oxygen one liter/m via N/C. no new complaints. Objective Vitals Vital Signs Date Time Temp Pulse Resp B/P (MAP) Pulse Ox O2 Delivery O2 Flow Rate FiO2 01/09/18 08:17 92 Nasal Cannula 1.00 01/09/18 04:00 97.8 66 18 162/70 (100) 95 01/09/18 00:00 98.2 71 20 151/58 (89) 97 01/08/18 21:18 Nasal Cannula 1.50 01/08/18 20:00 98.1 68 20 130/60 (83) 95 01/08/18 16:00 98.1 71 18 141/66 (91) 97 01/08/18 12:00 98.6 65 18 162/70 (100) 98 I/O 01/08/18 01/08/18 01/08/18 01/09/18 01/09/18 01/09/18 07:00 15:00 23:00 07:00 15:00 23:00 Intake Total 240 ml 720 ml 360 ml Balance 240 ml 720 ml 360 ml Intake Oral 240 ml 720 ml 360 ml # Voids 3 4 2 # Bowel Movements 0 0 0 Result Diagram: 01/08/18 1443 01/09/18 0525 Imaging Last Impressions Chest X-Ray 01/07/18 0000 Signed Impressions: Service Date/Time: Sunday, January 07, 2018 10:34 - CONCLUSION: 1. Left basilar opacity and mild blunting of the costophrenic angle characteristic of airspace disease with possible small parapneumonic effusion. 2. COPD 3. Enlarged pulmonary arteries. Ramírez Arshad MD CT Angiography 01/03/18 0000 Signed Impressions: Service Date/Time: Wednesday, January 03, 2018 16:57 - CONCLUSION: 1. Increasing size consolidative changes left lung suspicious for inflammatory process 2. Abnormal left adrenal gland. Vikram Giraldo MD FACR Objective Remarks GENERAL: This is a well-nourished, well-developed patient, in no apparent distress. CARDIOVASCULAR: Regular rate and regular rhythm without murmurs, gallops, or rubs. RESPIRATORY: diminished air entry in bases. GASTROINTESTINAL: Abdomen soft, non-tender, nondistended. Normal, active bowel sounds MUSCULOSKELETAL: Extremities without clubbing, cyanosis, or edema. NEURO: Alert & Oriented x4 to person, place, time, situation. Moves all ext x4 Medications and IVs Inpatient Medications Acetaminophen (Tylenol) 650 mg Q6H PRN PO FEVER/PAIN SCALE 1 TO 2; Start at 19:15 Acetaminophen/ Hydrocodone Bitart (Magnet 5-325 Mg) 1 tab Q4H PRN PO PAIN SCALE 3 TO 5 Last administered on 01/07/18at 22:10; Start 01/03/18 at 19:15 Albuterol/ Ipratropium (Duoneb Neb) 1 ampule Q4HR NEB PRN NEB SOB/WHEEZING Last administered on 01/06/18 04:30; Start 01/06/18 at 04:30 Amlodipine Besylate (Norvasc) 10 mg DAILY PO Last administered on 01/08/18 08: 05; Start 01/04/18 at 09:00 Atorvastatin Calcium (Lipitor) 40 mg HS PO Last administered on 01/08/18at 21:22 ; Start 01/03/18 at 21:00 Azithromycin 500 mg/Sodium Chloride 250 ml @ 250 mls/hr ONCE ONCE IV Last administered on 01/03/18at 15:33; Start 01/03/18 at 14:45; Stop 01/03/18 at 15:47 ; Status DC Bisacodyl (Dulcolax Supp) 10 mg DAILY PRN RECTAL SEVERE CONSITIPATION; Start at 19:15 Budesonide/ Formoterol Fumarate (Symbicort 160-4.5 Mcg Inh) 2 puff Q12HR INH Last administered on 01/08/18at 21:23; Start 01/03/18 at 21:00 Clonazepam (KlonoPIN) 0.5 mg Q8H PRN PO MODERATE TO SEVERE ANXIETY Last administered on 01/08/18at 21:26; Start 01/03/18 at 19:15 Guaifenesin (Mucinex Er) 1,200 mg BID PO ; Start 01/06/18 at 12:00; Stop at 15:25; Status DC Guaifenesin (Robitussin Liq) 200 mg Q4H PRN PO cough/congestion Last administered on 01/08/18at 21:26; Start 01/06/18 at 15:30 Heparin Sodium (Porcine) (Heparin Inj) 5,000 units Q12H SQ ; Start 01/04/18 at 09:00; Stop 01/04/18 at 09:00; Status DC Lactulose (Lactulose Liq) 30 ml DAILY PRN PO SEVERE CONSITIPATION; Start at 19:15 Levofloxacin (Levaquin) 750 mg DAILY PO Last administered on 01/08/18at 08:05; Start 01/06/18 at 14:30 Lisinopril (Prinivil) 5 mg DAILY PO ; Start 01/09/18 at 09:00 Magnesium Hydroxide (Milk Of Magnesia Liq) 30 ml Q12H PRN PO Mild constipation ; Start 01/03/18 at 19:15 Methylprednisolone Sodium Succinate (SoluMEDROL INJ) 40 mg Q6HR IV PUSH Last administered on 01/06/18at 12:19; Start 01/04/18 at 00:00; Stop 01/06/18 at 14:29 ; Status DC Metoprolol Tartrate (Lopressor) 100 mg BID PO Last administered on 01/08/18at 21 :22; Start 01/03/18 at 21:00 Miscellaneous Information SPECIFIC LAB TO BE ... ONCE ONCE .XX ; Start 01/07 at 15:45; Stop 01/07/18 at 15:45; Status DC Morphine Sulfate (Morphine Inj) 2 mg Q3H PRN IV PUSH Pain 6-10; Start 01/03/18 at 19:15; Stop 01/06/18 at 14:29; Status DC Ondansetron HCl (Zofran Inj) 4 mg Q6H PRN IVP NAUSEA OR VOMITING; Start at 19:15; Stop 01/06/18 at 14:29; Status DC Pantoprazole Sodium (Protonix Inj) 40 mg Q12HR IV PUSH Last administered on at 21:23; Start 01/08/18 at 13:30 Pharmacy Profile Note 0 ml @ 0 mls/hr UNSCH OTHER ; Start 01/03/18 at 19:15; Stop 01/06/18 at 14:29; Status DC Piperacillin Sod/ Tazobactam Sod 100 ml @ 200 mls/hr Q6H IV Last administered on 01/06/18at 12:17; Start 01/04/18 at 06:00; Stop 01/06/18 at 14:29; Status DC Prednisone (Deltasone) 50 mg DAILY PO Last administered on 01/08/18at 08:05; Start 01/06/18 at 14:30 Senna/Docusate Sodium (Annabelle-Colace) 1 tab BID PO Last administered on at 21:22; Start 01/03/18 at 21:00 Sennosides (Senokot) 17.2 mg Q12H PRN PO Moderate constipation; Start 01/03/18 at 19:15 Sodium Chloride (NS Flush) 2 ml BID IV FLUSH Last administered on 01/08/18at 21: 23; Start 01/03/18 at 21:00 Vancomycin HCl 1000 mg/Sodium Chloride 250 ml @ 250 mls/hr Q18H IV Last administered on 01/06/18at 03:56; Start 01/04/18 at 16:00; Stop 01/06/18 at 14:29 ; Status DC Vancomycin HCl 2000 mg/Sodium Chloride 520 ml @ 250 mls/hr ONCE ONCE IV Last administered on 01/04/18at 00:37; Start 01/03/18 at 20:00; Stop 01/03/18 at 22:04 ; Status DC A/P Problem List: (1) PNA (pneumonia) ICD Code: J18.9 - Pneumonia, unspecified organism (2) Hypoxia ICD Code: R09.02 - Hypoxemia (3) COPD (chronic obstructive pulmonary disease) ICD Code: J44.9 - Chronic obstructive pulmonary disease, unspecified (4) Anemia ICD Code: D64.9 - Anemia, unspecified Assessment and Plan Pneumonia Consolidation versus ill-defined air space disease evident in the lingula CTA was negative for pulmonary embolism but showed increasing size of consolidation Fevers and chills at home plus hypoxemia when she presented to her primary care doctor Continue with Levaquin Emphysema Continue neb treatment/ oxygen and prednisone; will start to taper down. failed walk test; will continue to taper down the oxygen as tolerated. case management consulted for home oxygen. Anemia/ due to GI blood loss s/p PRBC transfusion. consulted GI; plan for EGD/colonoscopy ( cardiology consulted for pre-procedure clearance). continue to monitor. DVT prophylaxis SCDs Discharge Planning has to stay for now since needs home oxygen and patient is a self-pay, awaiting GI work-up. Minouei,Mohammadreza MD Jan 09, 2018 08:51
[2018-01-09] MEDS: METOPROLOL TARTRATE 100 MG TAB PO SCH ×2 (09:00→20:40)
[2018-01-09] MEDS: DOCUSATE SODIUM 50 MG/SENNA 8.6 MG TAB PO SCH ×2 (09:00→20:40)
[2018-01-09] MEDS: LEVOFLOXACIN 750 MG TAB PO SCH (09:00)
[2018-01-09] MEDS: LISINOPRIL 5 MG TAB PO SCH (09:00)
[2018-01-09] MEDS: predniSONE 20 MG TAB PO SCH (09:01)
[2018-01-09] MEDS: SODIUM CHLORIDE 0.9% FLUSH 10 ML FLUSH IV FLUSH SCH ×2 (09:02→20:40)
[2018-01-09] MEDS: PANTOPRAZOLE SODIUM 40 MG VIAL IV PUSH SCH ×2 (09:02→20:40)
[2018-01-09] MEDS: BUDESONIDE-FORMOTEROL 160/4.5 MCG INHALER INH SCH ×2 (09:04→20:41)
[2018-01-09] MEDS: clonazePAM 0.5 MG TAB PO PRN ×2 (09:08→23:26)
--- NOTE | 2018-01-09 11:47 | HHI.GIFU ---
Subjective Remarks Pt resting in bed. Getting somewhat agitated, profane. No obvious bleeding. Insists that she will go home tomorrow but does agree to EGD and colonoscopy. (Cristiana Rivera) Objective Vitals I&O Vital Signs Date Time Temp Pulse Resp B/P (MAP) Pulse Ox O2 Delivery O2 Flow Rate FiO2 01/09/18 08:17 92 Nasal Cannula 1.00 01/09/18 04:00 97.8 66 18 162/70 (100) 95 01/09/18 00:00 98.2 71 20 151/58 (89) 97 01/08/18 21:18 Nasal Cannula 1.50 01/08/18 20:00 98.1 68 20 130/60 (83) 95 01/08/18 16:00 98.1 71 18 141/66 (91) 97 01/08/18 12:00 98.6 65 18 162/70 (100) 98 I/O 01/08/18 01/08/18 01/08/18 01/09/18 01/09/18 01/09/18 07:00 15:00 23:00 07:00 15:00 23:00 Intake Total 240 ml 720 ml 360 ml Balance 240 ml 720 ml 360 ml Intake Oral 240 ml 720 ml 360 ml # Voids 3 4 2 # Bowel Movements 0 0 0 Laboratory Laboratory Tests Test 01/08/18 14:43 01/09/18 05:25 Hemoglobin 9.7 Hematocrit 29.1 Blood Urea Nitrogen 22 Creatinine 0.98 Random Glucose 80 Calcium Level 8.2 Magnesium Level 1.8 Sodium Level 142 Potassium Level 4.1 Chloride Level 106 Carbon Dioxide Level 30.0 Anion Gap 6 Estimat Glomerular Filtration Rate 57 B-Type Natriuretic Peptide 202 Date/Time Source Procedure Growth Status 01/03/18 14:47 Blood Peripheral Aerobic Blood Culture - Final NO GROWTH IN 5 DAYS Complete 01/03/18 14:47 Blood Peripheral Anaerobic Blood Culture - Final NO GROWTH IN 5 DAYS Complete 01/07/18 11:05 Stool Stool Stool Occult Blood (DOLORES) - Final HEMOCCULT POSITIVE Complete 01/03/18 14:47 Nasal Aspirate Influenza Types A,B Antigen (DOLORES) - Final NEGATIVE FOR FLU A AND B ANTIGEN.... Complete Imaging Last Impressions Chest X-Ray 01/07/18 0000 Signed Impressions: Service Date/Time: Sunday, January 07, 2018 10:34 - CONCLUSION: 1. Left basilar opacity and mild blunting of the costophrenic angle characteristic of airspace disease with possible small parapneumonic effusion. 2. COPD 3. Enlarged pulmonary arteries. Ramírez Arshad MD CT Angiography 01/03/18 0000 Signed Impressions: Service Date/Time: Wednesday, January 03, 2018 16:57 - CONCLUSION: 1. Increasing size consolidative changes left lung suspicious for inflammatory process 2. Abnormal left adrenal gland. Vikram Giraldo MD FACR Physical Exam HEENT: PERRL normocephalic; atraumatic; no jaundice. CHEST: CTA CARDIAC: RRR + murmur ABDOMEN: Soft, nondistended, nontender; no hepatosplenomegaly; bowel sounds are present in all four quadrants. EXTREMITIES: No clubbing, cyanosis, or edema. SKIN: Normal; no rash; no jaundice. WO[employer]ER: No focal deficits; alert and oriented times three. (Cristiana Rivera [facility]) Assessment and Plan Plan Assessment: - Anemia with positive Hemoccult stool- H/H on admission 7.9/23.5 now S/P 1 U PRBCs currently 10.. Denies acid reflux, heartburn, dysphagia, abdominal pain. Reports chronic constipation but has had soft stool since admission, last one this AM. Denies obvious GIB. Previous diverticulitis with S/P lower anterior resection and sigmoid colostomy and Armando closure of the rectum S/P reversal of colostomy in 2009. Pt denies any colonoscopy since having this procedure. Does not think she has ever had an EGD. Denies ETOH since previous admission in December. Quit smoking December 12. Denies NSAIDs, not on blood thinners. - NSTEMI during admission in beginning of December, cardiac cath 75% of ostial first diagonal artery and states likely due to extreme high demand of hypoxia from HTN and PNA- States at high-risk for PCI and recommended medical management, 3 vessel disease - PNA- pt went to PCP for follow up and had x-ray showing worsening PNA then during admission. Levaquin - Impaired renal function [id number] 01/09/18 fluctuating HH. stool was heme pos. cardiology agrees with endoscopy. Plan: EGD and colonoscopy in am obtain consent clear liquids today NPO after MN golytely - ok to add crystal light Notify GI if active bleeding Protonix monitor labs Pt has been seen and examined by myself and Dr. Mcelroy and this note is written on his behalf (Cristiana Rivera) Physician Comments Seen and examined Agree with above Continue with current supportive care Monitor labs We will plan on an EGD and a colonoscopy tomorrow (Manuel Mcelroy MD) Cristiana Rivera Jan 09, 2018 11:47 Manuel Mcelroy MD Jan 09, 2018 22:00
[2018-01-09] MEDS ORDERED: PEG (High)/E-LYTE SOLN 4000 ML BTL PO ONE (16:00)
--- NOTE | 2018-01-09 19:19 | PD.CARD.PN ---
Subjective Subjective Remarks alert in nad, upset @ delays in procedures Objective Medications Current Medications Medications (Trade) Dose Ordered Sig/Deb Route Start Time Stop Time Status Last Admin (NS Flush) 2 ml UNSCH PRN IV FLUSH 01/03/18 19:15 (NS Flush) 2 ml BID IV FLUSH 01/03/18 21:00 01/09/18 09:02 (Tylenol) 650 mg Q6H PRN PO 01/03/18 19:15 ([place] 5-325 Mg) 1 tab Q4H PRN PO 01/03/18 19:15 01/07/18 22:10 (Annabelle-Colace) 1 tab BID PO 01/03/18 21:00 01/08/18 21:22 (Milk Of Magnesia Liq) 30 ml Q12H PRN PO 01/03/18 19:15 (Senokot) 17.2 mg Q12H PRN PO 01/03/18 19:15 (Dulcolax Supp) 10 mg DAILY PRN RECTAL 01/03/18 19:15 (Lactulose Liq) 30 ml DAILY PRN PO 01/03/18 19:15 (Symbicort 160-4.5 Mcg Inh) 2 puff Q12HR INH 01/03/18 21:00 01/09/18 09:04 (Norvasc) 10 mg DAILY PO 01/04/18 09:00 01/09/18 09:00 (Lipitor) 40 mg HS PO 01/03/18 21:00 01/08/18 21:22 (KlonoPIN) 0.5 mg Q8H PRN PO 01/03/18 19:15 01/09/18 09:08 (Lopressor) 100 mg BID PO 01/03/18 21:00 01/09/18 09:00 (Duoneb Neb) 1 ampule Q4HR NEB PRN NEB 01/06/18 04:30 01/06/18 04:30 (Levaquin) 750 mg DAILY PO 01/06/18 14:30 01/09/18 09:00 (Robitussin Liq) 200 mg Q4H PRN PO 01/06/18 15:30 01/08/18 21:26 (Protonix Inj) 40 mg Q12HR IV PUSH 01/08/18 13:30 01/09/18 09:02 (Prinivil) 5 mg DAILY PO 01/09/18 09:00 01/09/18 09:00 (Deltasone) 40 mg DAILY PO 01/09/18 09:00 01/09/18 09:01 Vital Signs / I&O Vital Signs Date Time Temp Pulse Resp B/P (MAP) Pulse Ox O2 Delivery O2 Flow Rate FiO2 01/09/18 16:00 98.2 67 16 125/61 (82) 95 01/09/18 09:02 Nasal Cannula 1.50 21 01/09/18 08:17 92 Nasal Cannula 1.00 01/09/18 08:00 98.8 64 18 182/77 (112) 94 01/09/18 04:00 97.8 66 18 162/70 (100) 95 01/09/18 00:00 98.2 71 20 151/58 (89) 97 01/08/18 21:18 Nasal Cannula 1.50 01/08/18 20:00 98.1 68 20 130/60 (83) 95 I/O 01/08/18 01/08/18 01/08/18 01/09/18 01/09/18 01/09/18 07:00 15:00 23:00 07:00 15:00 23:00 Intake Total 240 ml 720 ml 360 ml 620 ml Balance 240 ml 720 ml 360 ml 620 ml Intake Oral 240 ml 720 ml 360 ml 620 ml # Voids 3 4 2 2 # Bowel Movements 0 0 0 1 Physical Exam GENERAL: SKIN: Warm and dry. HEAD: Normocephalic. EYES: No scleral icterus. No injection or drainage. NECK: Supple, trachea midline. No JVD or lymphadenopathy. CARDIOVASCULAR: Regular rate and rhythm without murmurs, gallops, or rubs. RESPIRATORY: Breath sounds equal bilaterally. No accessory muscle use. GASTROINTESTINAL: Abdomen soft, non-tender, nondistended. MUSCULOSKELETAL: No cyanosis, or edema. BACK: Nontender without obvious deformity. No CVA tenderness. Laboratory Laboratory Tests Test 01/09/18 05:25 Blood Urea Nitrogen 22 MG/DL Creatinine 0.98 MG/DL Random Glucose 80 MG/DL Calcium Level 8.2 MG/DL Magnesium Level 1.8 MG/DL Sodium Level 142 MEQ/L Potassium Level 4.1 MEQ/L Chloride Level 106 MEQ/L Carbon Dioxide Level 30.0 MEQ/L Anion Gap 6 MEQ/L Estimat Glomerular Filtration Rate 57 ML/MIN B-Type Natriuretic Peptide 202 PG/ML Assessment and Plan Problem List: (1) HTN (hypertension) ICD Codes: I10 - Essential (primary) hypertension (2) CAD (coronary artery disease) ICD Codes: I25.10 - Atherosclerotic heart disease of [place] coronary artery without angina pectoris (3) Anemia ICD Codes: D64.9 - Anemia, unspecified Assessment and Plan 1.) CAD - assymptomatic, aspirin held due to unstable hgb and h/o gib, continue lipitor 2.) HTN - controlled on norvasc, metoprolol and lisinopril 3.) moderate risk for noncardiac procedure, d/w nurse Problem Qualifiers (1) CAD (coronary artery disease): Qualified Codes: I25.10 - Atherosclerotic heart disease of [place] coronary artery without angina pectoris Enrique Foreman MD Jan 09, 2018 19:19
[2018-01-09] MEDS: RESP: ALBUTEROL 2.5 MG/IPRATROPIUM 0.5 MG NEB (PRN) NEB (19:20)
[2018-01-09] MEDS: ATORVASTATIN 40 MG TAB PO SCH (20:40)
[2018-01-09] MEDS ORDERED: METOPROLOL TARTRATE 25 MG TAB PO PRN (22:30)
[2018-01-09] MEDS ORDERED: POVIDONE IODINE 5% (ANTISEPSIS KIT) 4 APPLICATIONS EACH NARE PRN (22:30)
[2018-01-09] MEDS ORDERED: CHLORHEXIDINE GLUCONATE 2 % 1 PACK (2 CLOTHS) TOPICAL PRN (22:30)
[2018-01-09] MEDS ORDERED: SODIUM CHLORID 0.9% 500 ML IV PRN (22:30)
[2018-01-09] MEDS ORDERED: LACTATED RINGER'S 1000 ML IV PRN (22:30)
[2018-01-10] VITALS: BP 162/72; PULSE 61; RESP 20; TEMP 97.8; O2SAT 98
[2018-01-10] MEDS ORDERED: LACTATED RINGER'S 1000 ML IV PRN (01:45)
[2018-01-10] MEDS ORDERED: CHLORHEXIDINE GLUCONATE 2 % 1 PACK (2 CLOTHS) TOPICAL PRN (01:45)
[2018-01-10] MEDS ORDERED: POVIDONE IODINE 5% (ANTISEPSIS KIT) 4 APPLICATIONS EACH NARE PRN (01:45)
[2018-01-10 08:00] VITALS: BP 158/65; PULSE 64; RESP 20; TEMP 98.1; O2SAT 96
[2018-01-10] MEDS: LEVOFLOXACIN 750 MG TAB PO SCH (08:25)
[2018-01-10] MEDS: BUDESONIDE-FORMOTEROL 160/4.5 MCG INHALER INH SCH ×2 (08:25→20:07)
[2018-01-10] MEDS: PANTOPRAZOLE SODIUM 40 MG VIAL IV PUSH SCH ×2 (08:25→20:05)
[2018-01-10] MEDS: METOPROLOL TARTRATE 100 MG TAB PO SCH ×2 (08:25→20:06)
[2018-01-10] MEDS: DOCUSATE SODIUM 50 MG/SENNA 8.6 MG TAB PO SCH ×2 (08:25→20:07)
[2018-01-10] MEDS: SODIUM CHLORIDE 0.9% FLUSH 10 ML FLUSH IV FLUSH SCH ×2 (08:26→20:05)
[2018-01-10] MEDS: predniSONE 20 MG TAB PO SCH (08:26)
[2018-01-10] MEDS: LISINOPRIL 5 MG TAB PO SCH (08:26)
--- NOTE | 2018-01-10 08:34 | HHI.PR ---
Subjective Remarks in no acute distress. on oxygen via N/C. no new complaints. awaiting endoscopy. Objective Vitals Vital Signs Date Time Temp Pulse Resp B/P (MAP) Pulse Ox O2 Delivery O2 Flow Rate FiO2 01/10/18 00:00 97.8 61 20 162/72 (102) 98 01/09/18 20:35 94 Nasal Cannula 1.50 01/09/18 20:00 98.8 70 20 156/70 (98) 94 01/09/18 19:22 94 Nasal Cannula 1.00 01/09/18 16:00 98.2 67 16 125/61 (82) 95 01/09/18 09:02 Nasal Cannula 1.50 21 I/O 01/09/18 01/09/18 01/09/18 01/10/18 01/10/18 01/10/18 07:00 15:00 23:00 07:00 15:00 23:00 Intake Total 360 ml 620 ml 0 ml Balance 360 ml 620 ml 0 ml Intake Oral 360 ml 620 ml 0 ml # Voids 2 2 1 # Bowel Movements 0 1 Result Diagram: 01/08/18 1443 01/09/18 0525 Imaging Last Impressions Chest X-Ray 01/07/18 0000 Signed Impressions: Service Date/Time: Sunday, January 07, 2018 10:34 - CONCLUSION: 1. Left basilar opacity and mild blunting of the costophrenic angle characteristic of airspace disease with possible small parapneumonic effusion. 2. COPD 3. Enlarged pulmonary arteries. Ramírez Arshad MD CT Angiography 01/03/18 0000 Signed Impressions: Service Date/Time: Wednesday, January 03, 2018 16:57 - CONCLUSION: 1. Increasing size consolidative changes left lung suspicious for inflammatory process 2. Abnormal left adrenal gland. Vikram Giraldo MD FACR Objective Remarks GENERAL: This is a well-nourished, well-developed patient, in no apparent distress. CARDIOVASCULAR: Regular rate and regular rhythm without murmurs, gallops, or rubs. RESPIRATORY: diminished air entry in bases. GASTROINTESTINAL: Abdomen soft, non-tender, nondistended. Normal, active bowel sounds MUSCULOSKELETAL: Extremities without clubbing, cyanosis, or edema. NEURO: Alert & Oriented x4 to person, place, time, situation. Moves all ext x4 Medications and IVs Inpatient Medications Acetaminophen (Tylenol) 650 mg Q6H PRN PO FEVER/PAIN SCALE 1 TO 2; Start at 19:15 Acetaminophen/ Hydrocodone Bitart ([place] 5-325 Mg) 1 tab Q4H PRN PO PAIN SCALE 3 TO 5 Last administered on 01/07/18at 22:10; Start 01/03/18 at 19:15 Albuterol/ Ipratropium (Duoneb Neb) 1 ampule Q4HR NEB PRN NEB SOB/WHEEZING Last administered on 01/09/18 19:20; Start 01/06/18 at 04:30 Amlodipine Besylate (Norvasc) 10 mg DAILY PO Last administered on 01/09/18 09: 00; Start 01/04/18 at 09:00 Atorvastatin Calcium (Lipitor) 40 mg HS PO Last administered on 01/09/18at 20:40 ; Start 01/03/18 at 21:00 Azithromycin 500 mg/Sodium Chloride 250 ml @ 250 mls/hr ONCE ONCE IV Last administered on 01/03/18at 15:33; Start 01/03/18 at 14:45; Stop 01/03/18 at 15:47 ; Status DC Bisacodyl (Dulcolax Supp) 10 mg DAILY PRN RECTAL SEVERE CONSITIPATION; Start at 19:15 Budesonide/ Formoterol Fumarate (Symbicort 160-4.5 Mcg Inh) 2 puff Q12HR INH Last administered on 01/09/18at 20:41; Start 01/03/18 at 21:00 Chlorhexidine Gluconate (Chlorhexidine 2% Cloth) 3 pack MACHINE TOOL OPERATOR PRN TOPICAL SEE LABEL COMMENTS; Start 01/10/18 at 01:45; Stop 01/13/18 at 01:44 Clonazepam (KlonoPIN) 0.5 mg Q8H PRN PO MODERATE TO SEVERE ANXIETY Last administered on 01/09/18at 23:26; Start 01/03/18 at 19:15 Guaifenesin (Mucinex Er) 1,200 mg BID PO ; Start 01/06/18 at 12:00; Stop at 15:25; Status DC Guaifenesin (Robitussin Liq) 200 mg Q4H PRN PO cough/congestion Last administered on 01/08/18at 21:26; Start 01/06/18 at 15:30 Heparin Sodium (Porcine) (Heparin Inj) 5,000 units Q12H SQ ; Start 01/04/18 at 09:00; Stop 01/04/18 at 09:00; Status DC Lactated Ringer's 1,000 ml @ 30 mls/hr Q24H PRN IV SEE LABEL COMMENTS; Start at 01:45; Stop 01/13/18 at 01:44 Lactulose (Lactulose Liq) 30 ml DAILY PRN PO SEVERE CONSITIPATION; Start at 19:15 Levofloxacin (Levaquin) 750 mg DAILY PO Last administered on 01/09/18at 09:00; Start 01/06/18 at 14:30 Lisinopril (Prinivil) 5 mg DAILY PO Last administered on 01/09/18at 09:00; Start 01/09/18 at 09:00 Magnesium Hydroxide (Milk Of Magnesia Liq) 30 ml Q12H PRN PO Mild constipation ; Start 01/03/18 at 19:15 Methylprednisolone Sodium Succinate (SoluMEDROL INJ) 40 mg Q6HR IV PUSH Last administered on 01/06/18at 12:19; Start 01/04/18 at 00:00; Stop 01/06/18 at 14:29 ; Status DC Metoprolol Tartrate (Lopressor) 25 mg MACHINE TOOL OPERATOR PRN PO SEE LABEL COMMENTS; Start 01/09/18 at 22:30; Stop 01/12/18 at 22:29 Miscellaneous Information SPECIFIC LAB TO BE PACO... ONCE ONCE .XX ; Start 01/07 at 15:45; Stop 01/07/18 at 15:45; Status DC Morphine Sulfate (Morphine Inj) 2 mg Q3H PRN IV PUSH Pain 6-10; Start 01/03/18 at 19:15; Stop 01/06/18 at 14:29; Status DC Ondansetron HCl (Zofran Inj) 4 mg Q6H PRN IVP NAUSEA OR VOMITING; Start at 19:15; Stop 01/06/18 at 14:29; Status DC Pantoprazole Sodium (Protonix Inj) 40 mg Q12HR IV PUSH Last administered on at 20:40; Start 01/08/18 at 13:30 Pharmacy Profile Note 0 ml @ 0 mls/hr UNSCH OTHER ; Start 01/03/18 at 19:15; Stop 01/06/18 at 14:29; Status DC Piperacillin Sod/ Tazobactam Sod 100 ml @ 200 mls/hr Q6H IV Last administered on 01/06/18at 12:17; Start 01/04/18 at 06:00; Stop 01/06/18 at 14:29; Status DC Polyethylene Glycol/ Electrolytes (Colyte Liq) 4,000 ml ONCE ONCE PO Last administered on 01/09/18at 16:00; Start 01/09/18 at 16:00; Stop 01/09/18 at 16:01 ; Status DC Povidone Iodine (Betadine 5% Antisepsis Kit) 1 applic MACHINE TOOL OPERATOR PRN EACH NARE SEE LABEL COMMENTS; Start 01/10/18 at 01:45; Stop 01/13/18 at 01:44 Prednisone (Deltasone) 40 mg DAILY PO Last administered on 01/09/18at 09:01; Start 01/09/18 at 09:00 Senna/Docusate Sodium (Annabelle-Colace) 1 tab BID PO Last administered on at 21:22; Start 01/03/18 at 21:00 Sennosides (Senokot) 17.2 mg Q12H PRN PO Moderate constipation; Start 01/03/18 at 19:15 Sodium Chloride 500 ml @ 30 mls/hr [id number] PRN IV SEE LABEL COMMENTS; Start at 22:30; Stop 01/12/18 at 22:29 Sodium Chloride (NS Flush) 2 ml BID IV FLUSH Last administered on 01/09/18at 20: 40; Start 01/03/18 at 21:00 Vancomycin HCl 1000 mg/Sodium Chloride 250 ml @ 250 mls/hr Q18H IV Last administered on 01/06/18at 03:56; Start 01/04/18 at 16:00; Stop 01/06/18 at 14:29 ; Status DC Vancomycin HCl 2000 mg/Sodium Chloride 520 ml @ 250 mls/hr ONCE ONCE IV Last administered on 01/04/18at 00:37; Start 01/03/18 at 20:00; Stop 01/03/18 at 22:04 ; Status DC A/P Problem List: (1) PNA (pneumonia) ICD Code: J18.9 - Pneumonia, unspecified organism (2) Hypoxia ICD Code: R09.02 - Hypoxemia (3) COPD (chronic obstructive pulmonary disease) ICD Code: J44.9 - Chronic obstructive pulmonary disease, unspecified (4) Anemia ICD Code: D64.9 - Anemia, unspecified Assessment and Plan Pneumonia Consolidation versus ill-defined air space disease evident in the lingula CTA was negative for pulmonary embolism but showed increasing size of consolidation Fevers and chills at home plus hypoxemia when she presented to her primary care doctor Continue with Levaquin Emphysema Continue neb treatment/ oxygen and prednisone; continue to taper down. failed walk test; will continue to taper down the oxygen as tolerated. case management consulted for home oxygen; however the patient is self-pay. Anemia/ due to GI blood loss s/p PRBC transfusion. consulted GI; plan for EGD/colonoscopy today ( cardiology consulted for pre- procedure clearance). continue to monitor. DVT prophylaxis SCDs Discharge Planning has to stay for now since needs home oxygen and patient is a self-pay, awaiting GI work-up. Rodrigo Montoya MD Jan 10, 2018 08:34
[2018-01-10 12:00] VITALS: BP 160/71; PULSE 65; RESP 20; TEMP 98.5; O2SAT 94
[2018-01-10] MEDS ORDERED: PROPOFOL 200 MG/20 ML AMP IV ONE (12:00)
--- NOTE | 2018-01-10 12:43 | PD.CARD.PN ---
Subjective Subjective Remarks alert in nad, upset @ delays in procedures Objective Medications Current Medications Medications (Trade) Dose Ordered Sig/Deb Route Start Time Stop Time Status Last Admin (NS Flush) 2 ml UNSCH PRN IV FLUSH 01/03/18 19:15 (NS Flush) 2 ml BID IV FLUSH 01/03/18 21:00 01/10/18 08:26 (Tylenol) 650 mg Q6H PRN PO 01/03/18 19:15 ([place] 5-325 Mg) 1 tab Q4H PRN PO 01/03/18 19:15 01/07/18 22:10 (Annabelle-Colace) 1 tab BID PO 01/03/18 21:00 01/10/18 08:25 (Milk Of Magnesia Liq) 30 ml Q12H PRN PO 01/03/18 19:15 (Senokot) 17.2 mg Q12H PRN PO 01/03/18 19:15 (Dulcolax Supp) 10 mg DAILY PRN RECTAL 01/03/18 19:15 (Lactulose Liq) 30 ml DAILY PRN PO 01/03/18 19:15 (Symbicort 160-4.5 Mcg Inh) 2 puff Q12HR INH 01/03/18 21:00 01/10/18 08:25 (Norvasc) 10 mg DAILY PO 01/04/18 09:00 01/10/18 08:26 (Lipitor) 40 mg HS PO 01/03/18 21:00 01/09/18 20:40 (KlonoPIN) 0.5 mg Q8H PRN PO 01/03/18 19:15 01/09/18 23:26 (Lopressor) 100 mg BID PO 01/03/18 21:00 01/10/18 08:25 (Duoneb Neb) 1 ampule Q4HR NEB PRN NEB 01/06/18 04:30 01/09/18 19:20 (Levaquin) 750 mg DAILY PO 01/06/18 14:30 01/10/18 08:25 (Robitussin Liq) 200 mg Q4H PRN PO 01/06/18 15:30 01/08/18 21:26 (Protonix Inj) 40 mg Q12HR IV PUSH 01/08/18 13:30 01/10/18 08:25 (Prinivil) 5 mg DAILY PO 01/09/18 09:00 01/10/18 08:26 (Deltasone) 40 mg DAILY PO 01/09/18 09:00 01/10/18 08:26 Lactated Ringer's 1,000 ml @ 30 mls/hr Q24H PRN IV 01/09/18 22:30 01/12/18 22:29 Sodium Chloride 500 ml @ 30 mls/hr [id number] PRN IV 01/09/18 22:30 01/12/18 22:29 (Lopressor) 25 mg CCNP PRN PO 01/09/18 22:30 01/12/18 22:29 (Betadine 5% Antisepsis Kit) 1 applic CCNP PRN EACH NARE 01/09/18 22:30 01/12/18 22:29 (Chlorhexidine 2% Cloth) 3 pack CCNP PRN TOPICAL 01/09/18 22:30 01/12/18 22:29 Lactated Ringer's 1,000 ml @ 30 mls/hr Q24H PRN IV 01/10/18 01:45 01/13/18 01:44 (Betadine 5% Antisepsis Kit) 1 applic CCNP PRN EACH NARE 01/10/18 01:45 01/13/18 01:44 (Chlorhexidine 2% Cloth) 3 pack CCNP PRN TOPICAL 01/10/18 01:45 01/13/18 01:44 Vital Signs / I&O Vital Signs Date Time Temp Pulse Resp B/P (MAP) Pulse Ox O2 Delivery O2 Flow Rate FiO2 01/10/18 12:00 98.5 65 20 160/71 (100) 94 01/10/18 08:00 98.1 64 20 158/65 (96) 96 01/10/18 00:00 97.8 61 20 162/72 (102) 98 01/09/18 20:35 94 Nasal Cannula 1.50 01/09/18 20:00 98.8 70 20 156/70 (98) 94 01/09/18 19:22 94 Nasal Cannula 1.00 01/09/18 16:00 98.2 67 16 125/61 (82) 95 I/O 01/09/18 01/09/18 01/09/18 01/10/18 01/10/1818 07:00 15:00 23:00 07:00 15:00 23:00 Intake Total 360 ml 620 ml 0 ml Balance 360 ml 620 ml 0 ml Intake Oral 360 ml 620 ml 0 ml # Voids 2 2 1 # Bowel Movements 0 1 Physical Exam GENERAL: SKIN: Warm and dry. HEAD: Normocephalic. EYES: No scleral icterus. No injection or drainage. NECK: Supple, trachea midline. No JVD or lymphadenopathy. CARDIOVASCULAR: Regular rate and rhythm without murmurs, gallops, or rubs. RESPIRATORY: Breath sounds equal bilaterally. No accessory muscle use. GASTROINTESTINAL: Abdomen soft, non-tender, nondistended. MUSCULOSKELETAL: No cyanosis, or edema. BACK: Nontender without obvious deformity. No CVA tenderness. Assessment and Plan Problem List: (1) HTN (hypertension) ICD Codes: I10 - Essential (primary) hypertension (2) CAD (coronary artery disease) ICD Codes: I25.10 - Atherosclerotic heart disease of [place] coronary artery without angina pectoris (3) Anemia ICD Codes: D64.9 - Anemia, unspecified Assessment and Plan 1.) CAD - assymptomatic, aspirin held due to unstable hgb and h/o gib, continue lipitor 2.) HTN - continue norvasc, metoprolol, increase lisinopril 10 mg qd, f/u bmp in am 3.) moderate risk for noncardiac procedure, d/w nurse Problem Qualifiers (1) CAD (coronary artery disease): Qualified Codes: I25.10 - Atherosclerotic heart disease of [place] coronary artery without angina pectoris Enrique Foreman MD Jan 10, 2018 12:43
[2018-01-10] MEDS ORDERED: DO NOT ADM ANY ANTICOAGULANT DRUGS PRN (14:37)
[2018-01-10 16:00] VITALS: BP 138/63; PULSE 59; RESP 16; TEMP 98.6; O2SAT 97
[2018-01-10 16:48] LABS: HEMATOCRIT 28.7 % (35.0-46.0); HEMOGLOBIN 9.5 GM/DL (11.6-15.3)
[2018-01-10 20:00] VITALS: BP 154/69; PULSE 61; RESP 19; TEMP 98.3; O2SAT 96
[2018-01-10] MEDS: ATORVASTATIN 40 MG TAB PO SCH (20:05)
[2018-01-10] MEDS: clonazePAM 0.5 MG TAB PO PRN (20:16)
--- NOTE | 2018-01-10 22:39 | PD.PROCEDR ---
GI Procedure PROCEDURE PERFORMED EGD with biopsy followed by a colonoscopy with snare polypectomy INDICATION FOR PROCEDURE Anemia, guaiac positive stools PROCEDURE: The procedure, risks and benefits were discussed with Patient/POA and informed consent was obtained. Anesthesia sedated Patient with Diprivan. Patient was placed in the left lateral decubitus position. EGD: The Pentax videoscope was introduced through the oropharynx and advanced to the second portion of the duodenum under direct visualization. Retroflexion was performed in the stomach. FINDINGS: The esophagus this appeared to be unremarkable with normal limits except for the Z line which was irregular this was biopsied The stomach there was a moderate sized hiatal hernia the antrum there was patchy erythema with superficial erosions no ulcerations no blood or bleeding the rest of the stomach was unremarkable antral biopsies were taken for further evaluation The duodenum there was a large duodenal bulb ulcer but no stigmata of recent bleed or visible vessel this was biopsied the rest of the duodenum was unremarkable Colonoscopy: The Pentax videoscope was introduced through the rectum and advanced to cecum where the ileocecal valve and appendiceal orifice were identified. Retroflexion was performed in the rectum. Colonic prep was good FINDINGS: Colonic withdrawal time greater than 6 minutes. As the scope was slowly withdrawn colonic mucosa was carefully inspected the patient was noted to have sessile polyp in the cecum and another one in the sigmoid both were excised using cold snare technique otherwise colonic examination was unremarkable there was evidence of prior surgery at the rectosigmoid junction consistent with the history of sigmoidectomy for diverticulitis in spite of that the patient was noted to have a few scattered diverticuli throughout the colon retroflexion in the rectum and rectal examination were otherwise unremarkable ESTIMATED BLOOD LOSS: None SPECIMENS REMOVED: Antral biopsies were taken and duodenal biopsies COMPLICATIONS: None IMPRESSION: Irregular Z line Hiatal hernia Erosive gastritis Large duodenal ulcer Colon polyps Diverticulosis Surgical changes in the: PLAN: Await biopsies Avoid NSAIDs and aspirin Protonix 40 mg twice daily EGD in 2 months Colonoscopy in 5 years Continue with current supportive care Monitor labs and transfuse as needed Manuel Mcelroy MD Jan 10, 2018 22:39
[2018-01-11] VITALS: BP 139/85; PULSE 55; RESP 19; TEMP 97.6; O2SAT 93
[2018-01-11 08:00] VITALS: BP 193/82; PULSE 61; RESP 17; TEMP 98.5; O2SAT 90
[2018-01-11] MEDS: BUDESONIDE-FORMOTEROL 160/4.5 MCG INHALER INH SCH ×2 (08:15→21:03)
[2018-01-11] MEDS: SODIUM CHLORIDE 0.9% FLUSH 10 ML FLUSH IV FLUSH SCH ×2 (08:16→21:03)
[2018-01-11] MEDS: LEVOFLOXACIN 750 MG TAB PO SCH (08:16)
[2018-01-11] MEDS: METOPROLOL TARTRATE 100 MG TAB PO SCH ×2 (08:16→21:00)
[2018-01-11] MEDS: PANTOPRAZOLE SODIUM 40 MG VIAL IV PUSH SCH (08:16)
[2018-01-11] MEDS: DOCUSATE SODIUM 50 MG/SENNA 8.6 MG TAB PO SCH ×2 (08:17→21:06)
[2018-01-11] MEDS: clonazePAM 0.5 MG TAB PO PRN ×2 (08:17→21:12)
[2018-01-11] MEDS: predniSONE 20 MG TAB PO SCH (08:17)
[2018-01-11] MEDS: LISINOPRIL 10 MG TAB PO SCH (08:17)
[2018-01-11] MEDS: ACETAMINOPHEN/HYDROcodone 325 MG/5 MG TAB PO PRN (08:18)
[2018-01-11 08:24] VITALS: PULSE 70
--- NOTE | 2018-01-11 08:58 | PD.CARD.PN ---
Subjective Subjective Remarks alert in nad, upset @ delays in discharge Objective Medications Current Medications Medications (Trade) Dose Ordered Sig/Deb Route Start Time Stop Time Status Last Admin (NS Flush) 2 ml UNSCH PRN IV FLUSH 01/03/18 19:15 (NS Flush) 2 ml BID IV FLUSH 01/03/18 21:00 01/11/18 08:16 (Tylenol) 650 mg Q6H PRN PO 01/03/18 19:15 ([place] 5-325 Mg) 1 tab Q4H PRN PO 01/03/18 19:15 01/11/18 08:18 (Annabelle-Colace) 1 tab BID PO 01/03/18 21:00 01/11/18 08:17 (Milk Of Magnesia Liq) 30 ml Q12H PRN PO 01/03/18 19:15 (Senokot) 17.2 mg Q12H PRN PO 01/03/18 19:15 (Dulcolax Supp) 10 mg DAILY PRN RECTAL 01/03/18 19:15 (Lactulose Liq) 30 ml DAILY PRN PO 01/03/18 19:15 (Symbicort 160-4.5 Mcg Inh) 2 puff Q12HR INH 01/03/18 21:00 01/11/18 08:15 (Norvasc) 10 mg DAILY PO 01/04/18 09:00 01/11/18 08:17 (Lipitor) 40 mg HS PO 01/03/18 21:00 01/10/18 20:05 (KlonoPIN) 0.5 mg Q8H PRN PO 01/03/18 19:15 01/11/18 08:17 (Lopressor) 100 mg BID PO 01/03/18 21:00 01/11/18 08:16 (Duoneb Neb) 1 ampule Q4HR NEB PRN NEB 01/06/18 04:30 01/09/18 19:20 (Levaquin) 750 mg DAILY PO 01/06/18 14:30 01/11/18 08:16 (Robitussin Liq) 200 mg Q4H PRN PO 01/06/18 15:30 01/08/18 21:26 (Protonix Inj) 40 mg Q12HR IV PUSH 01/08/18 13:30 01/11/18 08:16 (Deltasone) 40 mg DAILY PO 01/09/18 09:00 01/11/18 08:17 Lactated Ringer's 1,000 ml @ 30 mls/hr Q24H PRN IV 01/09/18 22:30 01/12/18 22:29 Sodium Chloride 500 ml @ 30 mls/hr [id number] PRN IV 01/09/18 22:30 01/12/18 22:29 (Lopressor) 25 mg SHIPWRIGHT APPRENTICE PRN PO 01/09/18 22:30 01/12/18 22:29 (Betadine 5% Antisepsis Kit) 1 applic SHIPWRIGHT APPRENTICE PRN EACH NARE 01/09/18 22:30 01/12/18 22:29 (Chlorhexidine 2% Cloth) 3 pack SHIPWRIGHT APPRENTICE PRN TOPICAL 01/09/18 22:30 01/12/18 22:29 Lactated Ringer's 1,000 ml @ 30 mls/hr Q24H PRN IV 01/10/18 01:45 01/13/18 01:44 (Betadine 5% Antisepsis Kit) 1 applic SHIPWRIGHT APPRENTICE PRN EACH NARE 01/10/18 01:45 01/13/18 01:44 (Chlorhexidine 2% Cloth) 3 pack SHIPWRIGHT APPRENTICE PRN TOPICAL 01/10/18 01:45 01/13/18 01:44 (Prinivil) 10 mg DAILY PO 01/11/18 09:00 Miscellaneous Information ALL NURSING DEPARTME... UNSCH PRN .XX 01/10/18 14:37 01/11/18 14:36 Vital Signs / I&O Vital Signs Date Time Temp Pulse Resp B/P (MAP) Pulse Ox O2 Delivery O2 Flow Rate FiO2 01/11/18 08:24 70 01/11/18 08:00 98.5 61 17 193/82 (119) 90 01/11/18 08:00 Nasal Cannula 1.50 21 01/11/18 00:00 97.6 55 19 139/85 (103) 93 01/10/18 20:03 96 Nasal Cannula 1.50 01/10/18 20:00 98.3 61 19 154/69 (97) 96 01/10/18 17:55 Nasal Cannula 1.00 01/10/18 16:00 98.6 59 16 138/63 (88) 97 01/10/18 14:42 98.1 60 20 124/58 (80) 95 01/10/18 12:00 98.5 65 20 160/71 (100) 94 I/O 01/10/18 01/10/18 01/10/18 01/11/18 01/11/18 01/11/18 07:00 15:00 23:00 07:00 15:00 23:00 Intake Total 0 ml 500 ml 0 ml 800 ml Balance 0 ml 500 ml 0 ml 800 ml Intake Oral 0 ml 0 ml 800 ml Other 500 ml # Voids 1 3 4 # Bowel Movements 0 Physical Exam GENERAL: SKIN: Warm and dry. HEAD: Normocephalic. EYES: No scleral icterus. No injection or drainage. NECK: Supple, trachea midline. No JVD or lymphadenopathy. CARDIOVASCULAR: Regular rate and rhythm without murmurs, gallops, or rubs. RESPIRATORY: Breath sounds equal bilaterally. No accessory muscle use. GASTROINTESTINAL: Abdomen soft, non-tender, nondistended. MUSCULOSKELETAL: No cyanosis, or edema. BACK: Nontender without obvious deformity. No CVA tenderness. Laboratory Laboratory Tests Test 01/10/18 16:25 Hemoglobin 9.5 GM/DL Hematocrit 28.7 % Assessment and Plan Problem List: (1) HTN (hypertension) ICD Codes: I10 - Essential (primary) hypertension (2) CAD (coronary artery disease) ICD Codes: I25.10 - Atherosclerotic heart disease of [place] coronary artery without angina pectoris (3) Anemia ICD Codes: D64.9 - Anemia, unspecified Assessment and Plan 1.) CAD - assymptomatic, aspirin held due to unstable hgb and h/o gib, continue lipitor; GI rec continue to hold aspirin 2.) HTN - continue norvasc, metoprolol, increase lisinopril 10 mg qd, bp improving 3.) moderate risk for noncardiac procedure, d/w nurse Problem Qualifiers (1) CAD (coronary artery disease): Qualified Codes: I25.10 - Atherosclerotic heart disease of [place] coronary artery without angina pectoris Enrique Foreman MD Jan 11, 2018 08:58
--- NOTE | 2018-01-11 09:44 | HHI.PR ---
Subjective Remarks in no acute distress. resting comfortably. with no new complaints. Objective Vitals Vital Signs Date Time Temp Pulse Resp B/P (MAP) Pulse Ox O2 Delivery O2 Flow Rate FiO2 01/11/18 08:24 70 01/11/18 08:00 98.5 61 17 193/82 (119) 90 01/11/18 08:00 Nasal Cannula 1.50 21 01/11/18 00:00 97.6 55 19 139/85 (103) 93 01/10/18 20:03 96 Nasal Cannula 1.50 01/10/18 20:00 98.3 61 19 154/69 (97) 96 01/10/18 17:55 Nasal Cannula 1.00 01/10/18 16:00 98.6 59 16 138/63 (88) 97 01/10/18 14:42 98.1 60 20 124/58 (80) 95 01/10/18 12:00 98.5 65 20 160/71 (100) 94 I/O 01/10/18 01/10/18 01/10/18 01/11/18 01/11/18 01/11/18 07:00 15:00 23:00 07:00 15:00 23:00 Intake Total 0 ml 500 ml 0 ml 800 ml Balance 0 ml 500 ml 0 ml 800 ml Intake Oral 0 ml 0 ml 800 ml Other 500 ml # Voids 1 3 4 # Bowel Movements 0 Result Diagram: 01/10/18 1625 01/09/18 0525 Imaging Last Impressions Chest X-Ray 01/07/18 0000 Signed Impressions: Service Date/Time: Sunday, January 07, 2018 10:34 - CONCLUSION: 1. Left basilar opacity and mild blunting of the costophrenic angle characteristic of airspace disease with possible small parapneumonic effusion. 2. COPD 3. Enlarged pulmonary arteries. Ramírez Arshad MD CT Angiography 01/03/18 0000 Signed Impressions: Service Date/Time: Wednesday, January 03, 2018 16:57 - CONCLUSION: 1. Increasing size consolidative changes left lung suspicious for inflammatory process 2. Abnormal left adrenal gland. Vikram Giraldo MD FACR Objective Remarks GENERAL: This is a well-nourished, well-developed patient, in no apparent distress. CARDIOVASCULAR: Regular rate and regular rhythm without murmurs, gallops, or rubs. RESPIRATORY: diminished air entry in bases. GASTROINTESTINAL: Abdomen soft, non-tender, nondistended. Normal, active bowel sounds MUSCULOSKELETAL: Extremities without clubbing, cyanosis, or edema. NEURO: Alert & Oriented x4 to person, place, time, situation. Moves all ext x4 Medications and IVs Inpatient Medications Acetaminophen (Tylenol) 650 mg Q6H PRN PO FEVER/PAIN SCALE 1 TO 2; Start at 19:15 Acetaminophen/ Hydrocodone Bitart ([place] 5-325 Mg) 1 tab Q4H PRN PO PAIN SCALE 3 TO 5 Last administered on 01/11/18 08:18; Start 01/03/18 at 19:15 Albuterol/ Ipratropium (Duoneb Neb) 1 ampule Q4HR NEB PRN NEB SOB/WHEEZING Last administered on 01/09/18 19:20; Start 01/06/18 at 04:30 Amlodipine Besylate (Norvasc) 10 mg DAILY PO Last administered on 01/11/18 08: 17; Start 01/04/18 at 09:00 Atorvastatin Calcium (Lipitor) 40 mg HS PO Last administered on 01/10/18at 20:05 ; Start 01/03/18 at 21:00 Azithromycin 500 mg/Sodium Chloride 250 ml @ 250 mls/hr ONCE ONCE IV Last administered on 01/03/18at 15:33; Start 01/03/18 at 14:45; Stop 01/03/18 at 15:47 ; Status DC Bisacodyl (Dulcolax Supp) 10 mg DAILY PRN RECTAL SEVERE CONSITIPATION; Start at 19:15 Budesonide/ Formoterol Fumarate (Symbicort 160-4.5 Mcg Inh) 2 puff Q12HR INH Last administered on 01/11/18 08:15; Start 01/03/18 at 21:00 Chlorhexidine Gluconate (Chlorhexidine 2% Cloth) 3 pack TIE LAYER PRN TOPICAL SEE LABEL COMMENTS; Start 01/10/18 at 01:45; Stop 01/13/18 at 01:44 Clonazepam (KlonoPIN) 0.5 mg Q8H PRN PO MODERATE TO SEVERE ANXIETY Last administered on 01/11/18 08:17; Start 01/03/18 at 19:15 Guaifenesin (Mucinex Er) 1,200 mg BID PO ; Start 01/06/18 at 12:00; Stop at 15:25; Status DC Guaifenesin (Robitussin Liq) 200 mg Q4H PRN PO cough/congestion Last administered on 01/08/18at 21:26; Start 01/06/18 at 15:30 Heparin Sodium (Porcine) (Heparin Inj) 5,000 units Q12H SQ ; Start 01/04/18 at 09:00; Stop 01/04/18 at 09:00; Status DC Lactated Ringer's 1,000 ml @ 30 mls/hr Q24H PRN IV SEE LABEL COMMENTS; Start at 01:45; Stop 01/13/18 at 01:44 Lactulose (Lactulose Liq) 30 ml DAILY PRN PO SEVERE CONSITIPATION; Start at 19:15 Levofloxacin (Levaquin) 750 mg DAILY PO Last administered on 01/11/18at 08:16; Start 01/06/18 at 14:30 Lisinopril (Prinivil) 10 mg DAILY PO ; Start 01/11/18 at 09:00 Magnesium Hydroxide (Milk Of Magnesia Liq) 30 ml Q12H PRN PO Mild constipation ; Start 01/03/18 at 19:15 Methylprednisolone Sodium Succinate (SoluMEDROL INJ) 40 mg Q6HR IV PUSH Last administered on 01/06/18at 12:19; Start 01/04/18 at 00:00; Stop 01/06/18 at 14:29 ; Status DC Metoprolol Tartrate (Lopressor) 25 mg TIE LAYER PRN PO SEE LABEL COMMENTS; Start 01/09/18 at 22:30; Stop 01/12/18 at 22:29 Miscellaneous Information ALL NURSING DEPARTME... UNSCH PRN .XX SEE LABEL COMMENTS; Start 01/10/18 at 14:37; Stop 01/11/18 at 14:36 Morphine Sulfate (Morphine Inj) 2 mg Q3H PRN IV PUSH Pain 6-10; Start 01/03/18 at 19:15; Stop 01/06/18 at 14:29; Status DC Ondansetron HCl (Zofran Inj) 4 mg Q6H PRN IVP NAUSEA OR VOMITING; Start at 19:15; Stop 01/06/18 at 14:29; Status DC Pantoprazole Sodium (Protonix Inj) 40 mg Q12HR IV PUSH Last administered on at 08:16; Start 01/08/18 at 13:30 Pharmacy Profile Note 0 ml @ 0 mls/hr UNSCH OTHER ; Start 01/03/18 at 19:15; Stop 01/06/18 at 14:29; Status DC Piperacillin Sod/ Tazobactam Sod 100 ml @ 200 mls/hr Q6H IV Last administered on 01/06/18at 12:17; Start 01/04/18 at 06:00; Stop 01/06/18 at 14:29; Status DC Polyethylene Glycol/ Electrolytes (Colyte Liq) 4,000 ml ONCE ONCE PO Last administered on 01/09/18at 16:00; Start 01/09/18 at 16:00; Stop 01/09/18 at 16:01 ; Status DC Povidone Iodine (Betadine 5% Antisepsis Kit) 1 applic TIE LAYER PRN EACH NARE SEE LABEL COMMENTS; Start 01/10/18 at 01:45; Stop 01/13/18 at 01:44 Prednisone (Deltasone) 40 mg DAILY PO Last administered on 01/11/18at 08:17; Start 01/09/18 at 09:00 Senna/Docusate Sodium (Annabel[place]-Colace) 1 tab BID PO Last administered on at 08:17; Start 01/03/18 at 21:00 Sennosides (Senokot) 17.2 mg Q12H PRN PO Moderate constipation; Start 01/03/18 at 19:15 Sodium Chloride 500 ml @ 30 mls/hr [id number] PRN IV SEE LABEL COMMENTS; Start at 22:30; Stop 01/12/18 at 22:29 Sodium Chloride (NS Flush) 2 ml BID IV FLUSH Last administered on 01/11/18at 08: 16; Start 01/03/18 at 21:00 Vancomycin HCl 1000 mg/Sodium Chloride 250 ml @ 250 mls/hr Q18H IV Last administered on 01/06/18at 03:56; Start 01/04/18 at 16:00; Stop 01/06/18 at 14:29 ; Status DC Vancomycin HCl 2000 mg/Sodium Chloride 520 ml @ 250 mls/hr ONCE ONCE IV Last administered on 01/04/18at 00:37; Start 01/03/18 at 20:00; Stop 01/03/18 at 22:04 ; Status DC A/P Problem List: (1) PNA (pneumonia) ICD Code: J18.9 - Pneumonia, unspecified organism (2) Hypoxia ICD Code: R09.02 - Hypoxemia (3) COPD (chronic obstructive pulmonary disease) ICD Code: J44.9 - Chronic obstructive pulmonary disease, unspecified (4) Anemia ICD Code: D64.9 - Anemia, unspecified Assessment and Plan Pneumonia Consolidation versus ill-defined air space disease evident in the lingula CTA was negative for pulmonary embolism but showed increasing size of consolidation Fevers and chills at home plus hypoxemia when she presented to her primary care doctor Continue with Levaquin Emphysema Continue neb treatment/ oxygen and prednisone; continue to taper down. failed walk test; will continue to taper down the oxygen as tolerated. case management consulted for home oxygen; however the patient is self-pay. will repeat the walk test today. Anemia/ due to GI blood loss s/p PRBC transfusion. consulted GI; s/p EGD/ colonoscopy: Irregular Z line/Hiatal hernia/Erosive gastritis/Large duodenal ulcer/Colon polyps/Diverticulosis continue with Protonix f/u with GI as outpatient. DVT prophylaxis SCDs Discharge Planning will repeat the walk test today; dc home if passed the walk test. Rodrigo Montoya MD Jan 11, 2018 09:44
[2018-01-11] MEDS ORDERED: LISI10TA3 PO (09:49)
[2018-01-11] MEDS ORDERED: Budeson-Formot 160-4.5 Mcg Inh INH (09:49)
[2018-01-11] MEDS ORDERED: PANT40TA3 PO (09:49)
[2018-01-11] MEDS ORDERED: PRED5TAB PO (09:49)
[2018-01-11] MEDS ORDERED: LEVA750T9 PO (09:49)
[2018-01-11] MEDS ORDERED: VENTAER INH (09:49)
--- NOTE | 2018-01-11 11:44 | HHI.GIFU ---
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 States her power has been cut off and she has animals at home States she cannot eat this hospital food and will eat when she leaves Wearing O2 per nasal cannula and states that she has access to oxygen at home Hemoglobin 10.7, increased from 9.5 yesterday (Sharon Schultz) Objective Vitals I&O Vital Signs Date Time Temp Pulse Resp B/P (MAP) Pulse Ox O2 Delivery O2 Flow Rate FiO2 01/11/18 08:24 70 01/11/18 08:00 98.5 61 17 193/82 (119) 90 01/11/18 08:00 Nasal Cannula 1.50 21 01/11/18 00:00 97.6 55 19 139/85 (103) 93 01/10/18 20:03 96 Nasal Cannula 1.50 01/10/18 20:00 98.3 61 19 154/69 (97) 96 01/10/18 17:55 Nasal Cannula 1.00 01/10/18 16:00 98.6 59 16 138/63 (88) 97 01/10/18 14:42 98.1 60 20 124/58 (80) 95 01/10/18 12:00 98.5 65 20 160/71 (100) 94 I/O 01/10/18 01/10/18 01/10/18 01/11/18 01/11/18 01/11/18 07:00 15:00 23:00 07:00 15:00 23:00 Intake Total 0 ml 500 ml 0 ml 800 ml Balance 0 ml 500 ml 0 ml 800 ml Intake Oral 0 ml 0 ml 800 ml Other 500 ml # Voids 1 3 4 # Bowel Movements 0 Laboratory Laboratory Tests Test 01/10/18 16:25 Hemoglobin 9.5 Hematocrit 28.7 Date/Time Source Procedure Growth Status 01/03/18 14:47 Blood Peripheral Aerobic Blood Culture - Final NO GROWTH IN 5 DAYS Complete 01/03/18 14:47 Blood Peripheral Anaerobic Blood Culture - Final NO GROWTH IN 5 DAYS Complete 01/07/18 11:05 Stool Stool Stool Occult Blood ([facility]) - Final HEMOCCULT POSITIVE Complete 01/03/18 14:47 Nasal Aspirate Influenza Types A,B Antigen ([facility]) - Final NEGATIVE FOR FLU A AND B ANTIGEN.... Complete Imaging Last Impressions Chest X-Ray 01/07/18 0000 Signed Impressions: Service Date/Time: Sunday, January 07, 2018 10:34 - CONCLUSION: 1. Left basilar opacity and mild blunting of the costophrenic angle characteristic of airspace disease with possible small parapneumonic effusion. 2. COPD 3. Enlarged pulmonary arteries. Ramírez Arshad MD CT Angiography 01/03/18 0000 Signed Impressions: Service Date/Time: Wednesday, January 03, 2018 16:57 - CONCLUSION: 1. Increasing size consolidative changes left lung suspicious for inflammatory process 2. Abnormal left adrenal gland. Vikram Giraldo MD FACR Physical Exam HEENT: PERRL normocephalic; atraumatic; no jaundice. CHEST: Diminished lung sounds in the bases, no obvious wheezing or rhonchi. Wearing oxygen as needed CARDIAC: Regular rate and rhythm ABDOMEN: Soft, nondistended, nontender; bowel sounds are present in all four quadrants. EXTREMITIES: No clubbing, cyanosis, or edema. SKIN: Normal; no rash; no jaundice. RECORD RETRIEVAL SPECIALIST: No focal deficits; alert and oriented times three. (Sharon Schultz) Assessment and Plan Plan Assessment: - Anemia with positive Hemoccult stool- H/H on admission 7.9/23.5 now S/P 1 U PRBCs currently 10.. Denies acid reflux, heartburn, dysphagia, abdominal pain. Reports chronic constipation but has had soft stool since admission, last one this AM. Denies obvious GIB. Previous diverticulitis with S/P lower anterior resection and sigmoid colostomy and Armando closure of the rectum S/P reversal of colostomy in 2009. Pt denies any colonoscopy since having this procedure. Does not think she has ever had an EGD. Denies ETOH since previous admission in December. Quit smoking December 12. Denies NSAIDs, not on blood thinners. - NSTEMI during admission in beginning of December, cardiac cath 75% of ostial first diagonal artery and states likely due to extreme high demand of hypoxia from HTN and PNA- States at high-risk for PCI and recommended medical management, 3 vessel disease - PNA- pt went to PCP for follow up and had x-ray showing worsening PNA then during admission. Levaquin - Impaired renal function [id number] 01/09/18 fluctuating HH. stool was heme pos. cardiology agrees with endoscopy. 01/10/18, EGD will colonoscopy. Findings include ,Hiatal hernia, Erosive gastritis, Large duodenal ulcer, Colon polyps, Diverticulosis 01/11/18, patient is fairly anxious and states she needs to get home and take care of animals that are in a house with no electricity. diet changed from clear liquids to regular as tolerated. Currently patient denies any symptoms of nausea vomiting diarrhea or constipation. Explained EGD and colonoscopy results to her. Hemoglobin 10.7 PLAN: Await biopsies Avoid NSAIDs and aspirin Protonix 40 mg twice daily EGD in 2 months. We will need to follow up in our office. Colonoscopy in 5 years Continue with current supportive care Monitor labs and transfuse as needed Okay from GI standpoint discharge with prescription Protonix and follow up in our office Pt has been seen and examined by myself and Dr. Mcelroy and this note is written on his behalf (Sharon Schultz) Physician Comments Patient seen and examined Agree with above Continue with current supportive care Monitor labs Not much to add from a GI standpoint we will sign off Follow-up with GI post discharge (Manuel Mcelroy MD) Sharon Schultz Jan 11, 2018 11:44 Manuel Mcelroy MD Jan 11, 2018 15:54
[2018-01-11 12:00] VITALS: BP 139/66; PULSE 60; RESP 17; TEMP 98.4; O2SAT 85
[2018-01-11 12:23] LABS: HEMATOCRIT 30.6 % (35.0-46.0); HEMOGLOBIN 10.7 GM/DL (11.6-15.3); MEAN CELL VOLUME 91.2 FL (80.0-100.0); MEAN CORPUSCULAR HEMOGLOBIN 31.9 PG (27.0-34.0); MEAN CORPUSCULAR HGB CONC 34.9 % (32.0-36.0); MEAN PLATELET VOLUME 8.8 FL (7.0-11.0); PLATELET COUNT 327 TH/MM3 (150-450); RED BLOOD COUNT 3.36 MIL/MM3 (4.00-5.30); RED CELL DISTRIBUTION WIDTH 15.6 % (11.6-17.2); WHITE BLOOD COUNT 8.3 TH/MM3 (4.0-11.0)
[2018-01-11 12:49] LABS: BICARBONATE 31.4 MEQ/L (21.0-32.0); CREATININE 0.93 MG/DL (0.50-1.00)
[2018-01-11 16:00] VITALS: BP 110/57; PULSE 66; RESP 17; TEMP 98.6; O2SAT 97
[2018-01-11 20:00] VITALS: BP 107/49; PULSE 67; RESP 16; TEMP 98.4; O2SAT 98
[2018-01-11] MEDS: ATORVASTATIN 40 MG TAB PO SCH (21:03)
[2018-01-11] MEDS: PANTOPRAZOLE SOD 40 MG DELAYED RELEASE TAB PO SCH (21:07)
[2018-01-12] VITALS: BP 98/51; PULSE 65; RESP 16; TEMP 98.5; O2SAT 99
[2018-01-12 08:00] VITALS: BP 126/57; PULSE 69; RESP 19; TEMP 97.9; O2SAT 98
[2018-01-12] MEDS: LISINOPRIL 10 MG TAB PO SCH (09:00)
[2018-01-12] MEDS: DOCUSATE SODIUM 50 MG/SENNA 8.6 MG TAB PO SCH (09:00)
[2018-01-12] MEDS ORDERED: predniSONE 10 MG TAB PO SCH (09:00)
[2018-01-12] MEDS: METOPROLOL TARTRATE 100 MG TAB PO SCH (09:38)
[2018-01-12] MEDS: PANTOPRAZOLE SOD 40 MG DELAYED RELEASE TAB PO SCH (09:38)
[2018-01-12] MEDS: LEVOFLOXACIN 750 MG TAB PO SCH (09:38)
[2018-01-12] MEDS: SODIUM CHLORIDE 0.9% FLUSH 10 ML FLUSH IV FLUSH SCH (09:39)
[2018-01-12] MEDS: BUDESONIDE-FORMOTEROL 160/4.5 MCG INHALER INH SCH (09:42)
--- NOTE | 2018-01-12 10:31 | HHI.PR ---
Subjective Remarks in no acute distress. no new complaints. wants to go home. Objective Vitals Vital Signs Date Time Temp Pulse Resp B/P (MAP) Pulse Ox O2 Delivery O2 Flow Rate FiO2 01/12/18 08:00 97.9 69 19 126/57 (80) 98 01/12/18 00:00 98.5 65 16 98/51 (67) 99 01/11/18 21:00 Nasal Cannula 1.50 01/11/18 20:00 98.4 67 16 107/49 (68) 98 01/11/18 16:00 98.6 66 17 110/57 (74) 97 01/11/18 12:00 98.4 60 17 139/66 (90) 85 I/O 01/11/18 01/11/18 01/11/18 01/12/18 01/12/18 01/12/18 07:00 15:00 23:00 07:00 15:00 23:00 Intake Total 800 ml 1302 ml 240 ml Balance 800 ml 1302 ml 240 ml Intake Oral 800 ml 1302 ml 240 ml # Voids 4 3 3 # Bowel Movements 0 0 Result Diagram: 01/11/18 1150 01/11/18 1150 Imaging Last Impressions Chest X-Ray 01/07/18 0000 Signed Impressions: Service Date/Time: Sunday, January 07, 2018 10:34 - CONCLUSION: 1. Left basilar opacity and mild blunting of the costophrenic angle characteristic of airspace disease with possible small parapneumonic effusion. 2. COPD 3. Enlarged pulmonary arteries. Ramírez Arshad MD CT Angiography 01/03/18 0000 Signed Impressions: Service Date/Time: Wednesday, January 03, 2018 16:57 - CONCLUSION: 1. Increasing size consolidative changes left lung suspicious for inflammatory process 2. Abnormal left adrenal gland. Vikram Giraldo MD FACR Objective Remarks GENERAL: This is a well-nourished, well-developed patient, in no apparent distress. CARDIOVASCULAR: Regular rate and regular rhythm without murmurs, gallops, or rubs. RESPIRATORY: diminished air entry in bases. GASTROINTESTINAL: Abdomen soft, non-tender, nondistended. Normal, active bowel sounds MUSCULOSKELETAL: Extremities without clubbing, cyanosis, or edema. NEURO: Alert & Oriented x4 to person, place, time, situation. Moves all ext x4 Medications and IVs Inpatient Medications Acetaminophen (Tylenol) 650 mg Q6H PRN PO FEVER/PAIN SCALE 1 TO 2; Start at 19:15 Acetaminophen/ Hydrocodone Bitart ([place] 5-325 Mg) 1 tab Q4H PRN PO PAIN SCALE 3 TO 5 Last administered on 01/11/18at 08:18; Start 01/03/18 at 19:15 Albuterol/ Ipratropium (Duoneb Neb) 1 ampule Q4HR NEB PRN NEB SOB/WHEEZING Last administered on 01/09/18at 19:20; Start 01/06/18 at 04:30 Amlodipine Besylate (Norvasc) 10 mg DAILY PO Last administered on 01/12/18at 09: 38; Start 01/04/18 at 09:00 Atorvastatin Calcium (Lipitor) 40 mg HS PO Last administered on 01/11/18at 21:03 ; Start 01/03/18 at 21:00 Azithromycin 500 mg/Sodium Chloride 250 ml @ 250 mls/hr ONCE ONCE IV Last administered on 01/03/18at 15:33; Start 01/03/18 at 14:45; Stop 01/03/18 at 15:47 ; Status DC Bisacodyl (Dulcolax Supp) 10 mg DAILY PRN RECTAL SEVERE CONSITIPATION; Start at 19:15 Budesonide/ Formoterol Fumarate (Symbicort 160-4.5 Mcg Inh) 2 puff Q12HR INH Last administered on 01/12/18at 09:42; Start 01/03/18 at 21:00 Chlorhexidine Gluconate (Chlorhexidine 2% Cloth) 3 pack DELIVERY CONSULTANT PRN TOPICAL SEE LABEL COMMENTS; Start 01/10/18 at 01:45; Stop 01/13/18 at 01:44 Clonazepam (KlonoPIN) 0.5 mg Q8H PRN PO MODERATE TO SEVERE ANXIETY Last administered on 01/11/18at 21:12; Start 01/03/18 at 19:15 Guaifenesin (Mucinex Er) 1,200 mg BID PO ; Start 01/06/18 at 12:00; Stop at 15:25; Status DC Guaifenesin (Robitussin Liq) 200 mg Q4H PRN PO cough/congestion Last administered on 01/08/18at 21:26; Start 01/06/18 at 15:30 Heparin Sodium (Porcine) (Heparin Inj) 5,000 units Q12H SQ ; Start 01/04/18 at 09:00; Stop 01/04/18 at 09:00; Status DC Lactated Ringer's 1,000 ml @ 30 mls/hr Q24H PRN IV SEE LABEL COMMENTS; Start at 01:45; Stop 01/13/18 at 01:44 Lactulose (Lactulose Liq) 30 ml DAILY PRN PO SEVERE CONSITIPATION; Start at 19:15 Levofloxacin (Levaquin) 750 mg DAILY PO Last administered on 01/12/18at 09:38; Start 01/06/18 at 14:30 Lisinopril (Prinivil) 10 mg DAILY PO ; Start 01/11/18 at 09:00 Magnesium Hydroxide (Milk Of Magnesia Liq) 30 ml Q12H PRN PO Mild constipation ; Start 01/03/18 at 19:15 Methylprednisolone Sodium Succinate (SoluMEDROL INJ) 40 mg Q6HR IV PUSH Last administered on 01/06/18at 12:19; Start 01/04/18 at 00:00; Stop 01/06/18 at 14:29 ; Status DC Metoprolol Tartrate (Lopressor) 25 mg DELIVERY CONSULTANT PRN PO SEE LABEL COMMENTS; Start 01/09/18 at 22:30; Stop 01/12/18 at 22:29 Miscellaneous Information ALL NURSING DEPARTME... UNSCH PRN .XX SEE LABEL COMMENTS; Start 01/10/18 at 14:37; Stop 01/11/18 at 14:36; Status DC Morphine Sulfate (Morphine Inj) 2 mg Q3H PRN IV PUSH Pain 6-10; Start 01/03/18 at 19:15; Stop 01/06/18 at 14:29; Status DC Ondansetron HCl (Zofran Inj) 4 mg Q6H PRN IVP NAUSEA OR VOMITING; Start at 19:15; Stop 01/06/18 at 14:29; Status DC Pantoprazole Sodium (Protonix Inj) 40 mg Q12HR IV PUSH Last administered on at 08:16; Start 01/08/18 at 13:30; Stop 01/11/18 at 09:40; Status DC Pantoprazole Sodium (Protonix) 40 mg Q12HR PO Last administered on 01/12/18at 09: 38; Start 01/11/18 at 21:00 Pharmacy Profile Note 0 ml @ 0 mls/hr UNSCH OTHER ; Start 01/03/18 at 19:15; Stop 01/06/18 at 14:29; Status DC Piperacillin Sod/ Tazobactam Sod 100 ml @ 200 mls/hr Q6H IV Last administered on 01/06/18at 12:17; Start 01/04/18 at 06:00; Stop 01/06/18 at 14:29; Status DC Polyethylene Glycol/ Electrolytes (Colyte Liq) 4,000 ml ONCE ONCE PO Last administered on 01/09/18at 16:00; Start 01/09/18 at 16:00; Stop 01/09/18 at 16:01 ; Status DC Povidone Iodine (Betadine 5% Antisepsis Kit) 1 applic DELIVERY CONSULTANT PRN EACH NARE SEE LABEL COMMENTS; Start 01/10/18 at 01:45; Stop 01/13/18 at 01:44 Prednisone (Deltasone) 30 mg DAILY PO Last administered on 01/12/18at 09:38; Start 01/12/18 at 09:00 Senna/Docusate Sodium (Annabelle-Colace) 1 tab BID PO Last administered on at 21:06; Start 01/03/18 at 21:00 Sennosides (Senokot) 17.2 mg Q12H PRN PO Moderate constipation; Start 01/03/18 at 19:15 Sodium Chloride 500 ml @ 30 mls/hr [id number] PRN IV SEE LABEL COMMENTS; Start at 22:30; Stop 01/12/18 at 22:29 Sodium Chloride (NS Flush) 2 ml BID IV FLUSH Last administered on 01/12/18at 09: 39; Start 01/03/18 at 21:00 Vancomycin HCl 1000 mg/Sodium Chloride 250 ml @ 250 mls/hr Q18H IV Last administered on 01/06/18at 03:56; Start 01/04/18 at 16:00; Stop 01/06/18 at 14:29 ; Status DC Vancomycin HCl 2000 mg/Sodium Chloride 520 ml @ 250 mls/hr ONCE ONCE IV Last administered on 01/04/18at 00:37; Start 01/03/18 at 20:00; Stop 01/03/18 at 22:04 ; Status DC A/P Problem List: (1) PNA (pneumonia) ICD Code: J18.9 - Pneumonia, unspecified organism (2) Hypoxia ICD Code: R09.02 - Hypoxemia (3) COPD (chronic obstructive pulmonary disease) ICD Code: J44.9 - Chronic obstructive pulmonary disease, unspecified (4) Anemia ICD Code: D64.9 - Anemia, unspecified Assessment and Plan Pneumonia Consolidation versus ill-defined air space disease evident in the lingula CTA was negative for pulmonary embolism but showed increasing size of consolidation Fevers and chills at home plus hypoxemia when she presented to her primary care doctor Continue with Levaquin Emphysema Continue neb treatment/ oxygen and prednisone; continue to taper down. failed walk test; will continue to taper down the oxygen as tolerated. case management consulted for home oxygen; however the patient is self-pay. Anemia/ due to GI blood loss s/p PRBC transfusion. consulted GI; s/p EGD/ colonoscopy: Irregular Z line/Hiatal hernia/Erosive gastritis/Large duodenal ulcer/Colon polyps/Diverticulosis continue with Protonix. hold aspirin per GI. f/u with GI as outpatient. DVT prophylaxis SCDs Discharge Planning dc home when oxygen has been provided. f/u; pcp . see med list. d/w the patient,RN and case management. Rodrigo Montoya MD Jan 12, 2018 10:31
--- NOTE | 2018-01-12 11:09 | PD.CARD.PN ---
Subjective Subjective Remarks alert in nad, upset @ delays in discharge, wants to go home,requiring supplemental oxygen Objective Medications Current Medications Medications (Trade) Dose Ordered Sig/Deb Route Start Time Stop Time Status Last Admin (NS Flush) 2 ml UNSCH PRN IV FLUSH 01/03/18 19:15 (NS Flush) 2 ml BID IV FLUSH 01/03/18 21:00 01/12/18 09:39 (Tylenol) 650 mg Q6H PRN PO 01/03/18 19:15 ([place] 5-325 Mg) 1 tab Q4H PRN PO 01/03/18 19:15 01/11/18 08:18 (Annabelle-Colace) 1 tab BID PO 01/03/18 21:00 01/11/18 21:06 (Milk Of Magnesia Liq) 30 ml Q12H PRN PO 01/03/18 19:15 (Senokot) 17.2 mg Q12H PRN PO 01/03/18 19:15 (Dulcolax Supp) 10 mg DAILY PRN RECTAL 01/03/18 19:15 (Lactulose Liq) 30 ml DAILY PRN PO 01/03/18 19:15 (Symbicort 160-4.5 Mcg Inh) 2 puff Q12HR INH 01/03/18 21:00 01/12/18 09:42 (Norvasc) 10 mg DAILY PO 01/04/18 09:00 01/12/18 09:38 (Lipitor) 40 mg HS PO 01/03/18 21:00 01/11/18 21:03 (KlonoPIN) 0.5 mg Q8H PRN PO 01/03/18 19:15 01/11/18 21:12 (Lopressor) 100 mg BID PO 01/03/18 21:00 01/12/18 09:38 (Duoneb Neb) 1 ampule Q4HR NEB PRN NEB 01/06/18 04:30 01/09/18 19:20 (Levaquin) 750 mg DAILY PO 01/06/18 14:30 01/12/18 09:38 (Robitussin Liq) 200 mg Q4H PRN PO 01/06/18 15:30 01/08/18 21:26 Lactated Ringer's 1,000 ml @ 30 mls/hr Q24H PRN IV 01/09/18 22:30 01/12/18 22:29 Sodium Chloride 500 ml @ 30 mls/hr [id number] PRN IV 01/09/18 22:30 01/12/18 22:29 (Lopressor) 25 mg [employer] PRN PO 01/09/18 22:30 01/12/18 22:29 (Betadine 5% Antisepsis Kit) 1 applic [employer] PRN EACH NARE 01/09/18 22:30 01/12/18 22:29 (Chlorhexidine 2% Cloth) 3 pack [employer] PRN TOPICAL 01/09/18 22:30 01/12/18 22:29 Lactated Ringer's 1,000 ml @ 30 mls/hr Q24H PRN IV 01/10/18 01:45 01/13/18 01:44 (Betadine 5% Antisepsis Kit) 1 applic [employer] PRN EACH NARE 01/10/18 01:45 01/13/18 01:44 (Chlorhexidine 2% Cloth) 3 pack [employer] PRN TOPICAL 01/10/18 01:45 01/13/18 01:44 (Prinivil) 10 mg DAILY PO 01/11/18 09:00 (Protonix) 40 mg Q12HR PO 01/11/18 21:00 01/12/18 09:38 (Deltasone) 30 mg DAILY PO 01/12/18 09:00 01/12/18 09:38 Vital Signs / I&O Vital Signs Date Time Temp Pulse Resp B/P (MAP) Pulse Ox O2 Delivery O2 Flow Rate FiO2 01/12/18 08:00 97.9 69 19 126/57 (80) 98 01/12/18 00:00 98.5 65 16 98/51 (67) 99 01/11/18 21:00 Nasal Cannula 1.50 01/11/18 20:00 98.4 67 16 107/49 (68) 98 01/11/18 16:00 98.6 66 17 110/57 (74) 97 01/11/18 12:00 98.4 60 17 139/66 (90) 85 I/O 01/11/18 01/11/18 01/11/18 01/12/18 01/12/18 01/12/18 07:00 15:00 23:00 07:00 15:00 23:00 Intake Total 800 ml 1302 ml 240 ml Balance 800 ml 1302 ml 240 ml Intake Oral 800 ml 1302 ml 240 ml # Voids 4 3 3 # Bowel Movements 0 0 Physical Exam GENERAL: SKIN: Warm and dry. HEAD: Normocephalic. EYES: No scleral icterus. No injection or drainage. NECK: Supple, trachea midline. No JVD or lymphadenopathy. CARDIOVASCULAR: Regular rate and rhythm without murmurs, gallops, or rubs. RESPIRATORY: Breath sounds equal bilaterally. No accessory muscle use. GASTROINTESTINAL: Abdomen soft, non-tender, nondistended. MUSCULOSKELETAL: No cyanosis, or edema. BACK: Nontender without obvious deformity. No CVA tenderness. Laboratory Laboratory Tests Test 01/11/18 11:50 White Blood Count 8.3 TH/MM3 Red Blood Count 3.36 MIL/MM3 Hemoglobin 10.7 GM/DL Hematocrit 30.6 % Mean Corpuscular Volume 91.2 FL Mean Corpuscular Hemoglobin 31.9 PG Mean Corpuscular Hemoglobin Concent 34.9 % Red Cell Distribution Width 15.6 % Platelet Count 327 TH/MM3 Mean Platelet Volume 8.8 FL Blood Urea Nitrogen 16 MG/DL Creatinine 0.93 MG/DL Random Glucose 90 MG/DL Calcium Level 9.0 MG/DL Sodium Level 138 MEQ/L Potassium Level 4.0 MEQ/L Chloride Level 100 MEQ/L Carbon Dioxide Level 31.4 MEQ/L Anion Gap 7 MEQ/L Estimat Glomerular Filtration Rate 61 ML/MIN Assessment and Plan Problem List: (1) HTN (hypertension) ICD Codes: I10 - Essential (primary) hypertension (2) CAD (coronary artery disease) ICD Codes: I25.10 - Atherosclerotic heart disease of [place] coronary artery without angina pectoris (3) Anemia ICD Codes: D64.9 - Anemia, unspecified Assessment and Plan 1.) CAD - assymptomatic, aspirin held due to unstable hgb and h/o gib, continue lipitor; GI rec continue to hold aspirin 2.) HTN - continue norvasc, metoprolol, increase lisinopril 10 mg qd, bp improving 3.) moderate risk for noncardiac procedure, d/w nurse Problem Qualifiers (1) CAD (coronary artery disease): Qualified Codes: I25.10 - Atherosclerotic heart disease of [place] coronary artery without angina pectoris Enrique Foreman MD Jan 12, 2018 11:09
[2018-01-12 12:00] VITALS: BP 165/72; PULSE 70; RESP 18; TEMP 97.3; O2SAT 93
--- NOTE | 2018-01-13 13:59 | HHI.DS ---
Discharge Summary Admission Date Jan 03, 2018 at 18:19 Discharge Date: Jan 12, 2018 Admitting Diagnosis PNA with hypoxia, symptomatic anemia (1) PNA (pneumonia) ICD Code: J18.9 - Pneumonia, unspecified organism Diagnosis: Principal (2) Hypoxia ICD Code: R09.02 - Hypoxemia Diagnosis: Principal (3) COPD (chronic obstructive pulmonary disease) ICD Code: J44.9 - Chronic obstructive pulmonary disease, unspecified Diagnosis: Principal (4) Anemia ICD Code: D64.9 - Anemia, unspecified Diagnosis: Principal Procedures EGD/colonoscopy Brief History - From Admission This is a 62-year-old female with a PMH of HTN, Hyperlipidemia, Anxiety and COPD who was sent to the ER by her PCP for further evaluation of hypoxia and SOB. Recent admit 12/12-12/16/17 for NSTEMI and PNA, CTA Pulm negative for PE at that time, however noted to have PNA, s/p Rocephin/Levaquin, s/p Cath w/ mild to moderate 3 vessel disease, recommendation for medical management. States she had been doing well after discharge until few days ago when she started to have SOB and subjective fever/chills. Denies chest pain, nausea, vomiting or diarrhea. On arrival, BP 137/66, HR 71, O2 sat 90% on RA, Afebrile. Hemoglobin 7.9, previously 12.6 on 12/14/17. Chemistry essentially unremarkable. Troponin negative. INR 1.0. CXR with progression of interstitial edema and airspace disease in the lingula, pneumonia versus aspiration. CTA Pulm negative for PE, increasing size of consolidative changes left lung suspicious for inflammatory process. S/p Zithro/Zosyn in ER. 1u pRBC ordered in ER for transfusion. CBC/BMP: 01/11/18 1150 01/11/18 1150 Significant Findings Laboratory Tests Test 01/10/18 16:25 01/11/18 11:50 Hemoglobin 9.5 GM/DL (11.6-15.3) 10.7 GM/DL (11.6-15.3) Hematocrit 28.7 % (35.0-46.0) 30.6 % (35.0-46.0) Red Blood Count 3.36 MIL/MM3 (4.00-5.30) Estimat Glomerular Filtration Rate 61 ML/MIN (>89) Imaging Last Impressions Chest X-Ray 01/07/18 0000 Signed Impressions: Service Date/Time: Sunday, January 07, 2018 10:34 - CONCLUSION: 1. Left basilar opacity and mild blunting of the costophrenic angle characteristic of airspace disease with possible small parapneumonic effusion. 2. COPD 3. Enlarged pulmonary arteries. Ramírez Arshad MD CT Angiography 01/03/18 0000 Signed Impressions: Service Date/Time: Wednesday, January 03, 2018 16:57 - CONCLUSION: 1. Increasing size consolidative changes left lung suspicious for inflammatory process 2. Abnormal left adrenal gland. Vikram Giraldo MD FACR PE at Discharge GENERAL: This is a well-nourished, well-developed patient, in no apparent distress. CARDIOVASCULAR: Regular rate and regular rhythm without murmurs, gallops, or rubs. RESPIRATORY: diminished air entry in bases. GASTROINTESTINAL: Abdomen soft, non-tender, nondistended. Normal, active bowel sounds MUSCULOSKELETAL: Extremities without clubbing, cyanosis, or edema. NEURO: Alert & Oriented x4 to person, place, time, situation. Moves all ext x4 Hospital Course Pneumonia Consolidation versus ill-defined air space disease evident in the lingula CTA was negative for pulmonary embolism but showed increasing size of consolidation Fevers and chills at home plus hypoxemia when she presented to her primary care doctor Continue with Levaquin Emphysema Continue neb treatment/ oxygen and prednisone; continue to taper down. failed walk test; will continue to taper down the oxygen as tolerated. case management consulted for home oxygen; however the patient is self-pay. Anemia/ due to GI blood loss s/p PRBC transfusion. consulted GI; s/p EGD/ colonoscopy: Irregular Z line/Hiatal hernia/Erosive gastritis/Large duodenal ulcer/Colon polyps/Diverticulosis continue with Protonix. hold aspirin per GI. f/u with GI as outpatient. Pt Condition on Discharge: Fair Discharge Disposition: Discharge Home (patient signed out against medical advice.) Discharge Time: <= 30 minutes Rodrigo Montoya MD Jan 13, 2018 13:59
--- NOTE | 2018-01-24 13:44 | PQ ---
Physician Query Response Document PATIENT: EVER HAZEL : 1955 ADMIT DATE: 01/03/2018 6:19 PM DISCH DATE: 01/12/2018 1:41 PM RESPONDING PROVIDER #: [email or web address] QUERY TEXT: Clinical Significance The diagnosis documented below requires documentation to state the clinical significance: Impaired re nal function. Please respond and also state in your next progress note whether the condition is: -- Clinically insignificant -- Clinically significant, and please also state why it is clinically significant -- Unable to determine clinical significance -- Other, please specify If you have any additional questions/comments and/or concerns, please do not hesitate to reach out to the CDI/Coding Hotline, Ext. [phone]. The patient's Clinical Indicators include: In Dr. Mcelroy's consult, documentation of - Impaired renal function [id number] (at bottom of Assessmen t paragraph). This diagnosis is not mentioned in Discharge Summary. Query created by: Luci Tejada on 01/22/2018 10:57 AM RESPONSE TEXT: Clinically insignificant. QUERY TEXT: Conflicting Documentation Clarification A single mention or documentation of multiple diagnoses for the same clinical presentation appears in the record. Please clarify the diagnosis/diagnoses: Are you in agreement with diagnoses as noted a yoel under Clinical Indicators of COPD exacerbation and CHF exacerbation/decompensation? Please also document if the condition is: -- Confirmed and current -- Confirmed, treated and resolved -- Ruled out -- Other, please specify If you have any additional questions/comments and/or concerns, please do not hesitate to reach out to the CDI/Coding Hotline, Ext. [phone]. The patient's Clinical Indicators include: 1) ED Record (under Narrative Course) documents: She also has a COPD exacerbation will be given ster oids and nebulizer treatment. Both H 2) Progress note by Dr. Gerard on 01/04/18 documents: Much of this presentation is due to CHF exacerb ation. Dr. Foreman's consult of 01/08/18 also documents Final Diagnosis of: 4. Decompensated congestive hear t failure. Consult also lists findings of heart catheterization - done by myself on 12/16/2017, shows a 75% ostial first diagonal artery. Otherwise, she has mild to moderate 3-vessel coronary artery disease, E F ____. LV pressures were 230/19-22. EF was . Pulmonary capillary wedge pressure was 32/34-25, PA pressure 59/26-42. Cardiac index by Nichole is 2.9 L/m2 per minute, SVR 1820 dynes. (Patient treate d for NSTEMI on this admission) CHF is not documented in either H Query created by: Luci Tejada on 01/22/2018 11:11 AM RESPONSE TEXT: COPD exacerbation. Electronically signed by: Rodrigo Montoya MD 01/24/2018 1:40 PM
== END 2018-01-12 13:41 | disposition left against medical advice (07) | DRG 193 ==
LOC: NEPC 12:27 → NEDA 18:19 → N06A 20:45 → N07B 01-06 21:41
PROVIDERS: ADMIT Internal Medicine; ATTEND Internal Medicine
PROC: 30233N1 Transfusion of Nonautologous Red Blood Cells into Peripheral Vein, Percutaneous Approach (ICD-10-PCS; 2018-01-03)
PROC: 0DB48ZX Excision of Esophagogastric Junction, Via Natural or Artificial Opening Endoscopic, Diagnostic (ICD-10-PCS; 2018-01-10)
PROC: 0DBH8ZX Excision of Cecum, Via Natural or Artificial Opening Endoscopic, Diagnostic (ICD-10-PCS; 2018-01-10)
PROC: 0DBN8ZX Excision of Sigmoid Colon, Via Natural or Artificial Opening Endoscopic, Diagnostic (ICD-10-PCS; 2018-01-10)
PROC: 0DB98ZX Excision of Duodenum, Via Natural or Artificial Opening Endoscopic, Diagnostic (ICD-10-PCS; principal; 2018-01-10 13:56)
PROC: 0DB68ZX Excision of Stomach, Via Natural or Artificial Opening Endoscopic, Diagnostic (ICD-10-PCS; 2018-01-10 13:56)
DX: J18.9 Pneumonia, unspecified organism (principal); I21.4 Non-ST elevation (NSTEMI) myocardial infarction; J96.21 Acute and chronic respiratory failure with hypoxia; J44.0 Chronic obstructive pulmonary disease with (acute) lower respiratory infection; K26.9 Duodenal ulcer, unspecified as acute or chronic, without hemorrhage or perforation; I11.0 Hypertensive heart disease with heart failure; I50.9 Heart failure, unspecified; J44.1 Chronic obstructive pulmonary disease with (acute) exacerbation; K92.2 Gastrointestinal hemorrhage, unspecified; I25.10 Atherosclerotic heart disease of native coronary artery without angina pectoris; D50.0 Iron deficiency anemia secondary to blood loss (chronic); K44.9 Diaphragmatic hernia without obstruction or gangrene; K63.5 Polyp of colon; K29.60 Other gastritis without bleeding; K57.90 Diverticulosis of intestine, part unspecified, without perforation or abscess without bleeding; F41.9 Anxiety disorder, unspecified; Z87.891 Personal history of nicotine dependence; E78.5 Hyperlipidemia, unspecified
CPT/HCPCS: 36430; 71045; 71046; 71275; 80048; 80053; 80202; 82272; 82550; 82565; 82728; 83540; 83550; 83605; 83735; 83880; 84484; 85014; 85018; 85025; 85027; 85610; 85730; 86850; 86900; 86901; 86920; 87040; 87804; 88305; 88312; 93005; 94618; 94640; 94664; 96365; 96368; C9113; J0456; J2543; J2920; J2930; J3370; J7040; J7050; J7512; P9016; Q9967